=== PATIENT | female | born 1975 | race Caucasian/White ===

== ENCOUNTER 2017-06-01 20:42 | Emergency (ER) | payer OTHER ==
[~2017-06-01] VITALS: Ht 157.5 cm; Wt 63.5 kg
--- NOTE | 2017-06-01 21:09 | PHYS DOC ---
Past Medical History Past Medical History: No Pertinent History Past Surgical History: Other Additional Past Surgical Histo: Lumpectomy R shoulder, D&C Alcohol Use: None Drug Use: None Adult General Chief Complaint Chief Complaint: MULTIPLE COMPLAINTS HPI HPI Patient is a 41 year old female who presents with who complaints. She states her days ago she developed severe headache was in the frontal aspect and radiating to the back of her head. She states today it is light neck to 3 out of 10 before it was 20 out of 10. She states she's been having some nausea and vomited 3-4 times a day. She states her symptoms got worse after she cleaned the house today and he smelt mold in the house and other bad odors. She states she feels generalized weak and that's the reason she decided to come to the ER. She denies any chest pain, abdominal pain or shortness of breath. Review of Systems Review of Systems Constitutional: Denies fever or chills [] Eyes: Denies change in visual acuity, redness, or eye pain [] HENT: Denies nasal congestion or sore throat [] Respiratory: Denies cough or shortness of breath [] Cardiovascular: No additional information not addressed in HPI [] GI: Denies abdominal pain, , bloody stools or diarrhea, positive for nausea, vomiting : Denies dysuria or hematuria [] Musculoskeletal: Denies back pain or joint pain [] Integument: Denies rash or skin lesions [] Neurologic: Denies headache, focal weakness or sensory changes [] Endocrine: Denies polyuria or polydipsia [] Current Medications Current Medications Current Medications Medications (Trade) Dose Ordered Sig/[facility] Start Time Stop Time Status Last Admin Dose Admin Ondansetron HCl (Zofran) 4 mg 1X ONCE 06/01/17 21:15 06/01/17 21:16 DC 06/01/17 21:32 4 MG Sodium Chloride 1,000 ml @ 1,000 mls/hr Q1H 06/01/17 21:10 06/01/17 22:09 DC 06/01/17 21:32 1,000 MLS/HR Allergies Allergies Allergies Coded Allergies Type Severity Reaction Last Updated Verified Penicillins Allergy Mild 05/11/15 Yes Physical Exam Physical Exam Constitutional: Well developed, well nourished, no acute distress, non-toxic appearance. [] HENT: Normocephalic, atraumatic, bilateral external ears normal, oropharynx moist, no oral exudates, nose normal. [] Eyes: PERRLA, EOMI, conjunctiva normal, no discharge. [] Neck: Normal range of motion, no tenderness, supple, no stridor. [] Cardiovascular:Heart rate regular rhythm, no murmur [] Lungs & Thorax: Bilateral breath sounds clear to auscultation [] Abdomen: Bowel sounds normal, soft, no tenderness, no masses, no pulsatile masses. [] Skin: Warm, dry, no erythema, no rash. [] Back: No tenderness, no CVA tenderness. [] Extremities: No tenderness, no cyanosis, no clubbing, ROM intact, no edema. [] Neurologic: Alert and oriented X 3, normal motor function, normal sensory function, no focal deficits noted. [] Psychologic: Affect normal, judgement normal, mood normal. [] Current Patient Data Vital Signs Vital Signs Date Time Temp Pulse Resp B/P (MAP) Pulse Ox O2 Delivery O2 Flow Rate FiO2 06/01/17 22:32 80 20 128/80 (96) 98 Room Air 06/01/17 20:45 98.2 98.2 Lab Values Laboratory Tests Test 06/01/17 20:00 06/01/17 20:52 06/01/17 21:25 POC Urine HCG, Qualitative Hcg negative (Negative) Urine Collection Type Unknown Urine Color Red Urine Clarity Clear Urine pH 6.0 Urine Specific [place] >=1.030 Urine Protein 100 mg/dL (NEG-TRACE) Urine Glucose (UA) Negative mg/dL (NEG) Urine Ketones (Stick) Trace mg/dL (NEG) Urine Blood Large (NEG) Urine Nitrite Negative (NEG) Urine Bilirubin Small (NEG) Urine Urobilinogen Dipstick 1.0 mg/dL (0.2 mg/dL) Urine Leukocyte Esterase Small (NEG) Urine RBC >40 /HPF (0-2) Urine WBC Occ /HPF (0-4) Urine Squamous Epithelial Cells Mod /LPF Urine Bacteria Few /HPF (0-FEW) Urine Mucus Mod /LPF Urine Opiates Screen Pos (NEG) Urine Methadone Screen Pos (NEG) Urine Barbiturates Neg (NEG) Urine Phencyclidine Screen Neg (NEG) Urine Amphetamine/Methamphetamine Pos (NEG) Urine Benzodiazepines Screen Pos (NEG) Urine Cocaine Screen Neg (NEG) Urine Cannabinoids Screen Neg (NEG) Urine Ethyl Alcohol Neg (NEG) White Blood Count 5.1 x10^3/uL (4.0-11.0) Red Blood Count 4.75 x10^6/uL (3.50-5.40) Hemoglobin 14.2 g/dL (12.0-15.5) Hematocrit 40.7 % (36.0-47.0) Mean Corpuscular Volume 86 fL (79-100) Mean Corpuscular Hemoglobin 30 pg (25-35) Mean Corpuscular Hemoglobin Concent 35 g/dL (31-37) Red Cell Distribution Width 12.6 % (11.5-14.5) Platelet Count 108 x10^3/uL (140-400) L Neutrophils (%) (Auto) 78 % (31-73) H Lymphocytes (%) (Auto) 14 % (24-48) L Monocytes (%) (Auto) 8 % (0-9) Eosinophils (%) (Auto) 0 % (0-3) Basophils (%) (Auto) 1 % (0-3) Neutrophils # (Auto) 4.0 x10^3uL (1.8-7.7) Lymphocytes # (Auto) 0.7 x10^3/uL (1.0-4.8) L Monocytes # (Auto) 0.4 x10^3/uL (0.0-1.1) Eosinophils # (Auto) 0.0 x10^3/uL (0.0-0.7) Basophils # (Auto) 0.0 x10^3/uL (0.0-0.2) Prothrombin Time 13.2 SEC (11.7-14.0) Prothrombin Time INR 1.1 (0.8-1.1) PTT 32 SEC (24-38) Sodium Level 136 mmol/L (136-145) Potassium Level 3.5 mmol/L (3.5-5.1) Chloride Level 99 mmol/L (98-107) Carbon Dioxide Level 28 mmol/L (21-32) Anion Gap 9 (6-14) Blood Urea Nitrogen 14 mg/dL (7-20) Creatinine 0.8 mg/dL (0.6-1.0) Estimated GFR (Cockcroft-Gault) 78.7 Glucose Level 101 mg/dL (70-99) H Calcium Level 8.4 mg/dL (8.5-10.1) L Total Bilirubin 0.3 mg/dL (0.2-1.0) Direct Bilirubin 0.1 mg/dL (0.0-0.2) Aspartate Amino Transferase (AST) 29 U/L (15-37) Alanine Aminotransferase (ALT) 23 U/L (14-59) Alkaline Phosphatase 82 U/L (46-116) Creatine Kinase 60 U/L (26-192) Creatine Kinase MB (Mass) 0.7 ng/mL (0.0-3.6) Creatine Kinase MB Relative Index % (0-4) Troponin I Quantitative < 0.017 ng/mL (0.000-0.055) Total Protein 7.3 g/dL (6.4-8.2) Albumin 3.6 g/dL (3.4-5.0) Lipase 119 U/L (73-393) Laboratory Tests 06/01/17 21:25 Laboratory Tests 06/01/17 21:25 EKG EKG EKG shows sinus rhythm with rate of [address] elevations or T-wave inversions, QTC 450 ms, normal axis, as interpreted by me. Radiology/Procedures Radiology/Procedures [facility] [address] [place], [place] [id number] IMAGING REPORT Signed PATIENT: NATALIE TRAORE ACCOUNT: [id number] : 1975 LOCATION: ER AGE: 41 SEX: F EXAM STATUS: REG ER ORD. PHYSICIAN: JENNIFER BANEGAS MD REASON: headache PROCEDURE: CT HEAD WO CONTRAST Indication: Headaches. Axial imaging through the brain was performed without contrast. One or more of the following individualized dose reduction techniques were utilized for this examination: 1. Automated exposure control 2. Adjustment of the mA and/or kV according to patient size 3. Use of iterative reconstruction technique No prior studies are available for comparison. The ventricles and sulci are within normal limits. No sulcal effacement, midline shift or hemorrhage is detected. The cisterns are patent. The visualized paranasal sinuses are clear. IMPRESSION: No acute intracranial process is detected. Electronically signed by: Chavo Ventura MD (06/01/2017 10:11 PM) DICTATED and SIGNED BY: CHAVO VENTURA MD DATE: 06/01/17 027 CC: JENNIFER BANEGAS MD; LIZ MONROE APRN ~ Impressions: Nausea, vomiting Course & Med Decision Making Course & Med Decision Making Pertinent Labs and Imaging studies reviewed. (See chart for details) Labs show multiple illicit agents in her urine. She received IV fluids, Zofran and feels better. She's being discharged home with ODT Zofran. She can also take [id number] Claritin for sinus pressure to see that doesn't help with her headache. She did state she was exposed to mold another smelly substances and this could be sinus pressure with causing this discomfort. Return precautions given for fevers chills and severe headache nausea vomiting or other concerns return back to ER. She is to follow-up with primary care physician within next week. Dragon Disclaimer Dragon Disclaimer This electronic medical record was generated, in whole or in part, using a voice recognition dictation system. Departure Departure Impression: Primary Impression: Nausea Disposition: 01 HOME, SELF-CARE Condition: STABLE Referrals: LIZ MONROE APRN (PCP) Patient Instructions: Nausea, Adult Additional Instructions: The CAT scan of your head in addition to your x-ray of your chest did not show acute abnormality's. He felt better with IV fluids and Zofran. Your being discharged with oral dissolvable tablets of Zofran. You can also use Claritin they can purchase [id number] to see if this will help your nasal congestion and headache. Return back to ER if you develop severe headache, uncontrolled nausea vomiting, fevers chills or other concerns. You should follow up with primary care physician within the next week. Scripts Ondansetron (ZOFRAN ODT) 4 Mg Tab.rapdis 1 TAB SL Q8HRS, #10 TAB Prov: JENNIFER BANEGAS MD 06/01/17 JENNIFER BANEGAS MD Jun 01, 2017 21:09
[2017-06-01] MEDS ORDERED: IV NORMAL SALINE 1000ML BAG 1,000 ML IV SCH (21:10)
[2017-06-01] MEDS ORDERED: ONDANSETRON PF 4 MG/2 ML VIAL. IV ONE (21:15)
[2017-06-01 21:29] LABS: BILIRUBIN,URINE SMALL (NEG); GLUCOSE,URINE NEGATIVE (NEG); NITRITE,URINE NEGATIVE (NEG); PROTEIN,URINE 100 mg/dL (NEG-TRACE)
[2017-06-01 21:32] LABS: BASO % 1 % (0-3); EOS % 0 % (0-3); HEMATOCRIT 40.7 % (36.0-47.0); HEMOGLOBIN 14.2 g/dL (12.0-15.5); LYMPH # 0.7 x10^3/uL (1.0-4.8); LYMPH % 14 % (24-48); MEAN CORPUSCULAR HEMOGLOBIN 30 pg (25-35); MEAN CORPUSCULAR HGB CONC 35 g/dL (31-37); MEAN CORPUSCULAR VOLUME 86 fL (79-100); MONO % 8 % (0-9); NEUT % 78 % (31-73); PLATELET COUNT 108 x10^3/uL (140-400); RED BLOOD COUNT 4.75 x10^6/uL (3.50-5.40); RED CELL DISTRIBUTION WIDTH 12.6 % (11.5-14.5); WHITE BLOOD COUNT 5.1 x10^3/uL (4.0-11.0)
[2017-06-01 21:36] LABS: BARBITURATES NEG (NEG); BENZODIAZEPINES POS (NEG); CANNABINOIDS NEG (NEG); COCAINE NEG (NEG); METHADONE POS (NEG); OPIATES POS (NEG); PHENCYCLIDINE NEG (NEG)
[2017-06-01 21:37] LABS: BACTERIA,URINE FEW /HPF (0-FEW); RBC,URINE >40 /HPF (0-2); SQUAMOUS EPITHELIAL CELL,UR MOD /LPF; WBC,URINE OCC /HPF (0-4)
[2017-06-01 21:47] LABS: INR 1.1 (0.8-1.1); PROTHROMBIN TIME PATIENT 13.2 SEC (11.7-14.0)
[2017-06-01 21:48] LABS: CALCIUM 8.4 mg/dL (8.5-10.1); CREATININE 0.8 mg/dL (0.6-1.0); GFR 78.7; POTASSIUM 3.5 mmol/L (3.5-5.1)
[2017-06-01 21:53] LABS: ALBUMIN 3.6 g/dL (3.4-5.0); DIRECT BILIRUBIN 0.1 mg/dL (0.0-0.2); TOTAL BILIRUBIN 0.3 mg/dL (0.2-1.0); TOTAL PROTEIN 7.3 g/dL (6.4-8.2)
[2017-06-01 22:03] LABS: CKMB MASS 0.7 ng/mL (0.0-3.6); CREATINE KINASE 60 U/L (26-192)
--- NOTE | 2017-06-01 22:14 | RAD ---
Indication: Headaches. Axial imaging through the brain was performed without contrast. One or more of the following individualized dose reduction techniques were utilized for this examination: 1. Automated exposure control 2. Adjustment of the mA and/or kV according to patient size 3. Use of iterative reconstruction technique No prior studies are available for comparison. The ventricles and sulci are within normal limits. No sulcal effacement, midline shift or hemorrhage is detected. The cisterns are patent. The visualized paranasal sinuses are clear. IMPRESSION: No acute intracranial process is detected. Electronically signed by: Chavo Ventura MD (06/01/2017 10:11 PM)
[2017-06-01 22:32] VITALS: BP 128/80
[2017-06-01] MEDS ORDERED: ONDA4TAB10 SL (22:50)
--- NOTE | 2017-06-02 08:55 | RAD ---
Indication lightheaded. Chest discomfort. A single view of the chest was obtained. No prior imaging of the chest is available. The heart size and pulmonary vessels and mediastinum appear normal. The lungs are clear. No acute or significant finding is seen. IMPRESSION: No acute or significant finding apparent in the chest
--- NOTE | 2017-06-02 10:18 | EKG ---
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
== END 2017-06-01 22:58 | disposition home or self-care (01) ==
LOC: ER 20:42
DX: R11.2 Nausea with vomiting, unspecified (principal); R51 Headache; R53.1 Weakness; Z88.0 Allergy status to penicillin
CPT/HCPCS: 36415; 70450; 71010; 80048; 80076; 80305; 80320; 81001; 81025; 82553; 83690; 84484; 85027; 85610; 85730; 87086; 93005; 96361; 96374; 99285; J2405; J7030; G0481

== ENCOUNTER 2019-04-02 15:31 | Inpatient (IN) | payer OTHER, SELFPAY ==
[~2019-04-02] VITALS: Ht 157.5 cm; Wt 79.5 kg
[~2019-04-02 15:31] MED LIST: ONDA4TAB10 SL
[2019-04-02] MEDS ORDERED: CLINDAMYCIN 600MG PREMIX 50 ML IV ONE (16:30)
[2019-04-02] MEDS ORDERED: FLUORESCEIN OPHTH TEST STRIP. OD ONE (16:30)
[2019-04-02] MEDS ORDERED: TETRACAINE 0.5% OPHTH SOLUTION 4ML BOTTLE. OD ONE (16:30)
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
[2019-04-02 16:59] LABS: BASO % 1 % (0-3); EOS # 0.2 x10^3/uL (0.0-0.7); EOS % 4 % (0-3); HEMATOCRIT 38.1 % (36.0-47.0); HEMOGLOBIN 12.9 g/dL (12.0-15.5); LYMPH # 1.9 x10^3/uL (1.0-4.8); LYMPH % 30 % (24-48); MEAN CORPUSCULAR HEMOGLOBIN 29 pg (25-35); MEAN CORPUSCULAR HGB CONC 34 g/dL (31-37); MEAN CORPUSCULAR VOLUME 86 fL (79-100); MONO # 0.6 x10^3/uL (0.0-1.1); MONO % 9 % (0-9); NEUT # 3.8 x10^3uL (1.8-7.7); NEUT % 57 % (31-73); PLATELET COUNT 194 x10^3/uL (140-400); RED BLOOD COUNT 4.41 x10^6/uL (3.50-5.40); RED CELL DISTRIBUTION WIDTH 12.7 % (11.5-14.5); WHITE BLOOD COUNT 6.6 x10^3/uL (4.0-11.0)
[2019-04-02 17:02] LABS: CALCIUM 9.5 mg/dL (8.5-10.1); CREATININE 0.8 mg/dL (0.6-1.0); GFR 77.9; POTASSIUM 3.3 mmol/L (3.5-5.1)
[2019-04-02 17:08] LABS: ALBUMIN 4.2 g/dL (3.4-5.0); ALBUMIN/GLOBULIN RATIO 1.3 (1.0-1.7); TOTAL BILIRUBIN 0.3 mg/dL (0.2-1.0); TOTAL PROTEIN 7.5 g/dL (6.4-8.2)
[2019-04-02] MEDS ORDERED: methylPREDNISolone SOD SUCC PF 125 MG/2 ML VIAL. IV ONE (17:45)
[2019-04-02] MEDS ORDERED: ONDANSETRON PF 4 MG/2 ML VIAL. IV PRN (18:00)
[2019-04-02] MEDS ORDERED: ACETAMINOPHEN 325 MG TABLET. PO PRN (18:00)
--- NOTE | 2019-04-02 18:25 | NUR ---
1825 Patient placed in room 428 from the ED. She was oriented to the room and call light. She was ambulatory and was given clean gown and admit kit.
[2019-04-02 19:43] VITALS: BP 134/89
--- NOTE | 2019-04-02 20:30 | NUR ---
MD went to go see patient in room, patient was not in room or on unit. RN called security to advise them of the missing patient. Security found patient in parking lot and was escorted back to unit. RN advised patient that they are not to leave the unit in the future.
[2019-04-02] MEDS ORDERED: fentaNYL PF VIAL 100 MCG/2 ML VIAL IV PRN (21:00)
[2019-04-02] MEDS ORDERED: NICOTINE POLACRILEX 2MG GUM PACKAGE of 12. BC PRN (21:30)
[2019-04-02] MEDS ORDERED: CIPROFLOXACIN 0.3% OPHTH SOLUTION 5ML BOTTLE. OD ONE (22:30)
--- NOTE | 2019-04-02 22:35 | PDOC1 ---
History and Physical Date of Admission Date of Admission DATE: 04/02/19 TIME: 22:28 Identification/Chief Complaint Chief Complaint eye pain and swelling Source Source: Chart review, Patient History of Present Illness History of Present Illness Sunshine is a 43-year-old female admit with marked right eye swelling. She was working on a roof and had an abrasion yesterday and cleaned it out and kept working, she has about 10 photos on her phone of the progression how it started to hillary and then swell. When appeared to the ER, her right orbital area was fully swollen and indurated streaks up her right side of forehead. the pictures I see now are much worse than I had imagined when described to me by phone She reports that her vision and the raised streaks area already much imrpoved after getting the IV clinda a few hoursw ago. she had pain 9 out of 10, but much improved as the swellign is going down. she is not working right now but plans to travel with the [employer] this summer her father at this hospital (in room 428) and she had a panic attack before coming and almost refused to come to the hospital,but is better now Past Medical History Cardiovascular: No pertinent hx Pulmonary: No pertinent hx Heme/Onc: No pertinent hx Hepatobiliary: No pertinent hx Psych: No pertinent hx Rheumatologic: No pertinent hx Social History Smoke: <1 pack per day ALCOHOL: rare Drugs: None Current Problem List Problem List Problems Medical Problems: (1) Cellulitis Status: Acute Current Medications Current Medications Current Medications Fluorescein Sodium (Ful-Sophie) 1 strip 1X ONCE OD Last administered on 04/02/19at 16:46; Start 04/02/19 at 16:30; Stop 04/02/19 at 16:31; Status DC Tetracaine HCl (Tetracaine) 1 drop 1X ONCE OD Last administered on 04/02/19at 16:46; Start 04/02/19 at 16:30; Stop 04/02/19 at 16:31; Status DC Clindamycin Phosphate 50 ml @ 100 mls/hr 1X ONCE IV Last administered on 04/02/19at 16:47; Start 04/02/19 at 16:30; Stop 04/02/19 at 16:59; Status DC Methylprednisolone Sodium Succinate (SOLU-Medrol 125MG VIAL) 125 mg 1X ONCE IV Last administered on 04/02/19at 17:58; Start 04/02/19 at 17:45; Stop 04/02/19 at 17:46; Status DC Ondansetron HCl (Zofran) 4 mg PRN Q8HRS PRN IV NAUSEA/VOMITING; Start 04/02/19 at 18:00; Stop 04/03/19 at 17:59 Acetaminophen (Tylenol) 650 mg PRN Q4HRS PRN PO FEVER; Start 04/02/19 at 18:00; Stop 04/03/19 at 17:59 Fentanyl Citrate (Fentanyl 2ml Vial) 50 mcg PRN Q2HR PRN IV PAIN; Start 04/02/19 at 21:00 Oxycodone/ Acetaminophen (Percocet 5/325) 1 tab PRN Q4HRS PRN PO PAIN; Start 04/02/19 at 21:00 Nicotine (Nicoderm Cq 21mg) 1 patch PRN DAILY PRN TD SMOKING CESSATION; Start 04/02/19 at 21:30 Nicotine Polacrilex (Nicorette Gum) 1 each PRN Q1HR PRN BC SMOKING CESSATION; Start 04/02/19 at 21:30 Active Scripts Active Zofran Odt (Ondansetron) 4 Mg Tab.rapdis 1 Tab SL Q8HRS Allergies Allergies: Coded Allergies: Penicillins (Verified Allergy, Mild, 05/11/15) ROS General: No: Chills, Night Sweats, Fatigue, Malaise, Appetite, Other PSYCHOLOGICAL ROS: No: Anxiety, Behavioral Disorder, Concentration difficultie, Decreased libido, Depression, Disorientation, Hallucinations, Hostility, Irritablity, Memory difficulties, Mood Swings, Obsessive thoughts, Physical abuse, Sexual abuse, Sleep disturbances, Suicidal ideation, Other Eyes: No Blurry vision, No Decreased vision, No Double vision, No Dry eyes, No Excessive tearing, No Eye Pain, No Itchy Eyes, No Loss of vision, No Photophobia, No Scotomata, No Uses contacts, No Uses glasses, No Other HEENT: YES: Heacaches; No: Visual Changes, Hearing change, Nasal congestion, Nasal discharge, Oral lesions, Sinus pain, Sore Throat, Epistaxis, Sneezing, Snoring, Tinnitus, Vertigo, Vocal changes, Other Respiratory: No: Cough, Hemoptysis, Orthopnea, Pleuritic Pain, Shortness of breath, SOB with excertion, Sputum Changes, Stridor, Tachypnea, Wheezing, Other Cardiovascular: No Chest Pain, No Palpitations, No Orthopnea, No Paroxysmal Noc. Dyspnea, No Edema, No Lt Headedness, No Other Gastrointestinal: No Nausea, No Vomiting, No Abdominal Pain, No Diarrhea, No Constipation, No Melena, No Hematochezia, No Other Genitourinary: No Dysuria, No Frequency, No Incontinence, No Hematuria, No Retention, No Discharge, No Urgency, No Pain, No Flank Pain, No Other, No , No , No , No , No , No , No Musculoskeletal: No Gait Disturbance, No Joint Pain, No Joint Stiffness, No Joint Swelling, No Muscle Pain, No Muscular Weakness, No Pain In:, No Swelling In:, No Other Neurological: Yes Headaches; No Behavorial Changes, No Bowel/Bladder ControlChng, No Confusion, No Dizziness, No Gait Disturbance, No Impaired Coord/balance, No Memory Loss, No Numbness/Tingling, No Seizures, No Speech Problems, No Tremors, No Visual Changes, No Weakness, No Other Skin: No Dry Skin, No Eczema, No Hair Changes, No Lumps, No Mole Changes, No Mottling, No Nail Changes, No Pruritus, No Rash, No Skin Lesion Changes, No Other, No Acne Physical Exam General: Alert, Oriented X3, Cooperative, mild distress HEENT: EOMI, Other (right eye swollen, but able to open without fingers, vision good, sclera is injected, ) Lungs: Clear to auscultation, Other Heart: S1S2, RRR Abdomen: Normal bowel sounds, Soft Rectal Exam: not examined Extremities: No clubbing Skin: No rashes, No breakdown Neuro: Normal speech, Normal tone, Sensation intact Psych/Mental Status: Mental status NL, Mood NL Vitals Vitals Vital Signs Date Time Temp Pulse Resp B/P (MAP) Pulse Ox O2 Delivery O2 Flow Rate FiO2 04/02/19 19:43 97.8 84 20 134/89 (104) 100 Room Air 97.8 Labs Labs Laboratory Tests Test 04/02/19 16:35 White Blood Count 6.6 x10^3/uL (4.0-11.0) Red Blood Count 4.41 x10^6/uL (3.50-5.40) Hemoglobin 12.9 g/dL (12.0-15.5) Hematocrit 38.1 % (36.0-47.0) Mean Corpuscular Volume 86 fL (79-100) Mean Corpuscular Hemoglobin 29 pg (25-35) Mean Corpuscular Hemoglobin Concent 34 g/dL (31-37) Red Cell Distribution Width 12.7 % (11.5-14.5) Platelet Count 194 x10^3/uL (140-400) Neutrophils (%) (Auto) 57 % (31-73) Lymphocytes (%) (Auto) 30 % (24-48) Monocytes (%) (Auto) 9 % (0-9) Eosinophils (%) (Auto) 4 % (0-3) Basophils (%) (Auto) 1 % (0-3) Neutrophils # (Auto) 3.8 x10^3uL (1.8-7.7) Lymphocytes # (Auto) 1.9 x10^3/uL (1.0-4.8) Monocytes # (Auto) 0.6 x10^3/uL (0.0-1.1) Eosinophils # (Auto) 0.2 x10^3/uL (0.0-0.7) Basophils # (Auto) 0.0 x10^3/uL (0.0-0.2) Sodium Level 139 mmol/L (136-145) Potassium Level 3.3 mmol/L (3.5-5.1) Chloride Level 102 mmol/L (98-107) Carbon Dioxide Level 26 mmol/L (21-32) Anion Gap 11 (6-14) Blood Urea Nitrogen 12 mg/dL (7-20) Creatinine 0.8 mg/dL (0.6-1.0) Estimated GFR (Cockcroft-Gault) 77.9 BUN/Creatinine Ratio 15 (6-20) Glucose Level 107 mg/dL (70-99) Calcium Level 9.5 mg/dL (8.5-10.1) Total Bilirubin 0.3 mg/dL (0.2-1.0) Aspartate Amino Transf (AST/SGOT) 22 U/L (15-37) Alanine Aminotransferase (ALT/SGPT) 24 U/L (14-59) Alkaline Phosphatase 83 U/L (46-116) Total Protein 7.5 g/dL (6.4-8.2) Albumin 4.2 g/dL (3.4-5.0) Albumin/Globulin Ratio 1.3 (1.0-1.7) Laboratory Tests Test 04/02/19 16:35 White Blood Count 6.6 x10^3/uL (4.0-11.0) Red Blood Count 4.41 x10^6/uL (3.50-5.40) Hemoglobin 12.9 g/dL (12.0-15.5) Hematocrit 38.1 % (36.0-47.0) Mean Corpuscular Volume 86 fL (79-100) Mean Corpuscular Hemoglobin 29 pg (25-35) Mean Corpuscular Hemoglobin Concent 34 g/dL (31-37) Red Cell Distribution Width 12.7 % (11.5-14.5) Platelet Count 194 x10^3/uL (140-400) Neutrophils (%) (Auto) 57 % (31-73) Lymphocytes (%) (Auto) 30 % (24-48) Monocytes (%) (Auto) 9 % (0-9) Eosinophils (%) (Auto) 4 % (0-3) Basophils (%) (Auto) 1 % (0-3) Neutrophils # (Auto) 3.8 x10^3uL (1.8-7.7) Lymphocytes # (Auto) 1.9 x10^3/uL (1.0-4.8) Monocytes # (Auto) 0.6 x10^3/uL (0.0-1.1) Eosinophils # (Auto) 0.2 x10^3/uL (0.0-0.7) Basophils # (Auto) 0.0 x10^3/uL (0.0-0.2) Sodium Level 139 mmol/L (136-145) Potassium Level 3.3 mmol/L (3.5-5.1) Chloride Level 102 mmol/L (98-107) Carbon Dioxide Level 26 mmol/L (21-32) Anion Gap 11 (6-14) Blood Urea Nitrogen 12 mg/dL (7-20) Creatinine 0.8 mg/dL (0.6-1.0) Estimated GFR (Cockcroft-Gault) 77.9 BUN/Creatinine Ratio 15 (6-20) Glucose Level 107 mg/dL (70-99) Calcium Level 9.5 mg/dL (8.5-10.1) Total Bilirubin 0.3 mg/dL (0.2-1.0) Aspartate Amino Transf (AST/SGOT) 22 U/L (15-37) Alanine Aminotransferase (ALT/SGPT) 24 U/L (14-59) Alkaline Phosphatase 83 U/L (46-116) Total Protein 7.5 g/dL (6.4-8.2) Albumin 4.2 g/dL (3.4-5.0) Albumin/Globulin Ratio 1.3 (1.0-1.7) VTE Prophylaxis Ordered VTE Prophylaxis Devices: No VTE Pharmacological Prophylaxi: Yes Assessment/Plan Assessment/Plan periorbital cellulitis, she reports much improved after clinda given in ER tobaccoism, obese, BMI 31 cont current abx, add estela OU, may be able to DC on PO soon AURE GARDNER MD April 02, 2019 22:35
[2019-04-02] MEDS: oxyCODONE/APAP 5/325 1 TAB TABLET PO PRN (22:37)
[2019-04-02] MEDS ORDERED: FAMOTIDINE 20 MG TABLET. PO ONE (22:45)
[2019-04-02] MEDS ORDERED: CALCIUM CARBONATE 500 MG TAB.CHEW PO PRN (22:45)
[2019-04-02] MEDS ORDERED: MAG HYDROX/ALUMINUM HYD/SIMETH 30 ML ORAL.SUSP PO PRN (22:45)
[2019-04-02] MEDS: ENOXAPARIN 40 MG/0.4 ML SYRINGE. SQ SCH (22:51)
[2019-04-02 23:00] VITALS: BP 112/52
[2019-04-03 03:30] VITALS: BP 108/69
[2019-04-03] MEDS: CLINDAMYCIN 900MG PREMIX 50 ML IV SCH ×2 (05:26→14:00)
[2019-04-03] MEDS: oxyCODONE/APAP 5/325 1 TAB TABLET PO PRN ×2 (05:49→22:54)
[2019-04-03 07:00] VITALS: BP 106/60
[2019-04-03] MEDS: NICOTINE 21MG PATCH. TD PRN (08:12)
[2019-04-03] MEDS: FAMOTIDINE 20 MG TABLET. PO SCH ×2 (08:15→21:32)
[2019-04-03] MEDS ORDERED: SERT50TA PO (09:14)
[2019-04-03] MEDS ORDERED: CLON1TAB11 PO (09:14)
--- NOTE | 2019-04-03 10:10 | PDOC ---
PROGRESS NOTES History of Present Illness History of Present Illness Assessment/Plan Assessment/Plan periorbital cellulitis, she reports much improved after clinda given in ER tobaccoism, obese, BMI 31 cont current abx, add cipro OU, concern for zoster etiology ID CONSULT add iv zovirax pending ID consult Vitals Vitals Vital Signs Date Time Temp Pulse Resp B/P (MAP) Pulse Ox O2 Delivery O2 Flow Rate FiO2 04/03/19 07:00 98.8 86 18 106/60 (75) 95 Room Air 98.8 Physical Exam General: Alert, Oriented X3, Cooperative, mild distress Heart: Regular rate, Normal S1, Normal S2 Lungs: Clear Abdomen: Normal bowel sounds, Soft Extremities: No clubbing Skin: No rashes, No breakdown, Other (right frontal region rash with facial nerve distribution) Labs LABS Laboratory Tests Test 04/02/19 16:35 White Blood Count 6.6 x10^3/uL (4.0-11.0) Red Blood Count 4.41 x10^6/uL (3.50-5.40) Hemoglobin 12.9 g/dL (12.0-15.5) Hematocrit 38.1 % (36.0-47.0) Mean Corpuscular Volume 86 fL (79-100) Mean Corpuscular Hemoglobin 29 pg (25-35) Mean Corpuscular Hemoglobin Concent 34 g/dL (31-37) Red Cell Distribution Width 12.7 % (11.5-14.5) Platelet Count 194 x10^3/uL (140-400) Neutrophils (%) (Auto) 57 % (31-73) Lymphocytes (%) (Auto) 30 % (24-48) Monocytes (%) (Auto) 9 % (0-9) Eosinophils (%) (Auto) 4 % (0-3) Basophils (%) (Auto) 1 % (0-3) Neutrophils # (Auto) 3.8 x10^3uL (1.8-7.7) Lymphocytes # (Auto) 1.9 x10^3/uL (1.0-4.8) Monocytes # (Auto) 0.6 x10^3/uL (0.0-1.1) Eosinophils # (Auto) 0.2 x10^3/uL (0.0-0.7) Basophils # (Auto) 0.0 x10^3/uL (0.0-0.2) Sodium Level 139 mmol/L (136-145) Potassium Level 3.3 mmol/L (3.5-5.1) Chloride Level 102 mmol/L (98-107) Carbon Dioxide Level 26 mmol/L (21-32) Anion Gap 11 (6-14) Blood Urea Nitrogen 12 mg/dL (7-20) Creatinine 0.8 mg/dL (0.6-1.0) Estimated GFR (Cockcroft-Gault) 77.9 BUN/Creatinine Ratio 15 (6-20) Glucose Level 107 mg/dL (70-99) Calcium Level 9.5 mg/dL (8.5-10.1) Total Bilirubin 0.3 mg/dL (0.2-1.0) Aspartate Amino Transf (AST/SGOT) 22 U/L (15-37) Alanine Aminotransferase (ALT/SGPT) 24 U/L (14-59) Alkaline Phosphatase 83 U/L (46-116) Total Protein 7.5 g/dL (6.4-8.2) Albumin 4.2 g/dL (3.4-5.0) Albumin/Globulin Ratio 1.3 (1.0-1.7) Assessment and Plan Assessmemt and Plan Problems Medical Problems: (1) Cellulitis Status: Acute Comment Review of Relevant I have reviewed the following items kirstie (where applicable) has been applied. Labs Laboratory Tests Test 04/02/19 16:35 White Blood Count 6.6 x10^3/uL (4.0-11.0) Red Blood Count 4.41 x10^6/uL (3.50-5.40) Hemoglobin 12.9 g/dL (12.0-15.5) Hematocrit 38.1 % (36.0-47.0) Mean Corpuscular Volume 86 fL (79-100) Mean Corpuscular Hemoglobin 29 pg (25-35) Mean Corpuscular Hemoglobin Concent 34 g/dL (31-37) Red Cell Distribution Width 12.7 % (11.5-14.5) Platelet Count 194 x10^3/uL (140-400) Neutrophils (%) (Auto) 57 % (31-73) Lymphocytes (%) (Auto) 30 % (24-48) Monocytes (%) (Auto) 9 % (0-9) Eosinophils (%) (Auto) 4 % (0-3) Basophils (%) (Auto) 1 % (0-3) Neutrophils # (Auto) 3.8 x10^3uL (1.8-7.7) Lymphocytes # (Auto) 1.9 x10^3/uL (1.0-4.8) Monocytes # (Auto) 0.6 x10^3/uL (0.0-1.1) Eosinophils # (Auto) 0.2 x10^3/uL (0.0-0.7) Basophils # (Auto) 0.0 x10^3/uL (0.0-0.2) Sodium Level 139 mmol/L (136-145) Potassium Level 3.3 mmol/L (3.5-5.1) Chloride Level 102 mmol/L (98-107) Carbon Dioxide Level 26 mmol/L (21-32) Anion Gap 11 (6-14) Blood Urea Nitrogen 12 mg/dL (7-20) Creatinine 0.8 mg/dL (0.6-1.0) Estimated GFR (Cockcroft-Gault) 77.9 BUN/Creatinine Ratio 15 (6-20) Glucose Level 107 mg/dL (70-99) Calcium Level 9.5 mg/dL (8.5-10.1) Total Bilirubin 0.3 mg/dL (0.2-1.0) Aspartate Amino Transf (AST/SGOT) 22 U/L (15-37) Alanine Aminotransferase (ALT/SGPT) 24 U/L (14-59) Alkaline Phosphatase 83 U/L (46-116) Total Protein 7.5 g/dL (6.4-8.2) Albumin 4.2 g/dL (3.4-5.0) Albumin/Globulin Ratio 1.3 (1.0-1.7) Laboratory Tests Test 04/02/19 16:35 White Blood Count 6.6 x10^3/uL (4.0-11.0) Red Blood Count 4.41 x10^6/uL (3.50-5.40) Hemoglobin 12.9 g/dL (12.0-15.5) Hematocrit 38.1 % (36.0-47.0) Mean Corpuscular Volume 86 fL (79-100) Mean Corpuscular Hemoglobin 29 pg (25-35) Mean Corpuscular Hemoglobin Concent 34 g/dL (31-37) Red Cell Distribution Width 12.7 % (11.5-14.5) Platelet Count 194 x10^3/uL (140-400) Neutrophils (%) (Auto) 57 % (31-73) Lymphocytes (%) (Auto) 30 % (24-48) Monocytes (%) (Auto) 9 % (0-9) Eosinophils (%) (Auto) 4 % (0-3) Basophils (%) (Auto) 1 % (0-3) Neutrophils # (Auto) 3.8 x10^3uL (1.8-7.7) Lymphocytes # (Auto) 1.9 x10^3/uL (1.0-4.8) Monocytes # (Auto) 0.6 x10^3/uL (0.0-1.1) Eosinophils # (Auto) 0.2 x10^3/uL (0.0-0.7) Basophils # (Auto) 0.0 x10^3/uL (0.0-0.2) Sodium Level 139 mmol/L (136-145) Potassium Level 3.3 mmol/L (3.5-5.1) Chloride Level 102 mmol/L (98-107) Carbon Dioxide Level 26 mmol/L (21-32) Anion Gap 11 (6-14) Blood Urea Nitrogen 12 mg/dL (7-20) Creatinine 0.8 mg/dL (0.6-1.0) Estimated GFR (Cockcroft-Gault) 77.9 BUN/Creatinine Ratio 15 (6-20) Glucose Level 107 mg/dL (70-99) Calcium Level 9.5 mg/dL (8.5-10.1) Total Bilirubin 0.3 mg/dL (0.2-1.0) Aspartate Amino Transf (AST/SGOT) 22 U/L (15-37) Alanine Aminotransferase (ALT/SGPT) 24 U/L (14-59) Alkaline Phosphatase 83 U/L (46-116) Total Protein 7.5 g/dL (6.4-8.2) Albumin 4.2 g/dL (3.4-5.0) Albumin/Globulin Ratio 1.3 (1.0-1.7) Medications Current Medications Fluorescein Sodium (Ful-Sophie) 1 strip 1X ONCE OD Last administered on 04/02/19 16:46; Start 04/02/19 at 16:30; Stop 04/02/19 at 16:31; Status DC Tetracaine HCl (Tetracaine) 1 drop 1X ONCE OD Last administered on 04/02/19 16:46; Start 04/02/19 at 16:30; Stop 04/02/19 at 16:31; Status DC Clindamycin Phosphate 50 ml @ 100 mls/hr 1X ONCE IV Last administered on 04/02/19 16:47; Start 04/02/19 at 16:30; Stop 04/02/19 at 16:59; Status DC Methylprednisolone Sodium Succinate (SOLU-Medrol 125MG VIAL) 125 mg 1X ONCE IV Last administered on 04/02/19 17:58; Start 04/02/19 at 17:45; Stop 04/02/19 at 17:46; Status DC Ondansetron HCl (Zofran) 4 mg PRN Q8HRS PRN IV NAUSEA/VOMITING; Start 04/02/19 at 18:00; Stop 04/03/19 at 17:59 Acetaminophen (Tylenol) 650 mg PRN Q4HRS PRN PO FEVER; Start 04/02/19 at 18:00; Stop 04/03/19 at 17:59 Fentanyl Citrate (Fentanyl 2ml Vial) 50 mcg PRN Q2HR PRN IV PAIN; Start 04/02/19 at 21:00 Oxycodone/ Acetaminophen (Percocet 5/325) 1 tab PRN Q4HRS PRN PO PAIN Last administered on 04/03/19 05:49; Start 04/02/19 at 21:00 Nicotine (Nicoderm Cq 21mg) 1 patch PRN DAILY PRN TD SMOKING CESSATION Last administered on 04/03/19 08:12; Start 04/02/19 at 21:30 Nicotine Polacrilex (Nicorette Gum) 1 each PRN Q1HR PRN BC SMOKING CESSATION Last administered on 04/03/19 08:11; Start 04/02/19 at 21:30 Ciprofloxacin (Ciloxan Ophth) 1 drop QID OU ; Start 04/03/19 at 09:00 Ciprofloxacin (Ciloxan Ophth) 1 drop 1X ONCE OD Last administered on 04/02/19at 22:39; Start 04/02/19 at 22:30; Stop 04/02/19 at 22:31; Status DC Clindamycin Phosphate 50 ml @ 100 mls/hr Q8HRS IV Last administered on 04/03/19at 05:26; Start 04/03/19 at 06:00 Enoxaparin Sodium (Lovenox Per Pharmacy Prophylaxis Dosing) 1 each PRN DAILY PRN MC SEE COMMENTS; Start 04/02/19 at 22:30 Calcium Carbonate/ Glycine (Tums) 500 mg PRN AFTMEALHC PRN PO INDIGESTION; Start 04/02/19 at 22:45 Al Hydroxide/Mg Hydroxide (Mylanta Plus Xs) 30 ml PRN Q2HR PRN PO HEARTBURN / GAS; Start 04/02/19 at 22:45 Famotidine (Pepcid) 20 mg BID PO Last administered on 04/03/19at 08:15; Start 04/03/19 at 09:00 Famotidine (Pepcid) 20 mg 1X ONCE PO Last administered on 04/02/19at 22:51; Start 04/02/19 at 22:45; Stop 04/02/19 at 22:46; Status DC Enoxaparin Sodium (Lovenox 40mg Syringe) 40 mg Q24H SQ Last administered on 04/02/19at 22:51; Start 04/02/19 at 22:30 Clonazepam (KlonoPIN) 1 mg TID PO ; Start 04/03/19 at 09:15 Sertraline HCl (Zoloft) 50 mg DAILY PO ; Start 04/03/19 at 09:15 Active Scripts Active Zofran Odt (Ondansetron) 4 Mg Tab.rapdis 1 Tab SL Q8HRS Reported Clonazepam 1 Mg Tablet 1 Tab PO TID Zoloft (Sertraline Hcl) 50 Mg Tablet 1 Tab PO DAILY Vitals/I & O Vital Sign - Last 24 Hours 04/02/19 04/02/19 04/02/19 04/02/19 15:35 16:28 17:48 18:16 Temp 98.1 98.1 Pulse 92 84 82 Resp 16 B/P (MAP) 132/71 (91) 160/106 (124) 146/87 (106) 154/106 (122) Pulse Ox 99 99 100 O2 Delivery Room Air Room Air Room Air Room Air 504/02/19 04/02/19 04/02/19 19:30 19:43 22:37 23:00 Temp 97.8 97.9 97.8 97.9 Pulse 84 94 Resp 20 18 B/P (MAP) 134/89 (104) 112/52 (72) Pulse Ox 100 97 O2 Delivery Room Air Room Air Room Air Room Air 04/03/19 04/03/19 04/03/19 04/03/19 03:30 05:49 06:49 07:00 Temp 97.5 98.8 97.5 98.8 Pulse 83 86 Resp 18 18 B/P (MAP) 108/69 (82) 106/60 (75) Pulse Ox 97 95 O2 Delivery Room Air Room Air Room Air Room Air Intake and Output 04/02/19 04/02/19 04/03/19 15:00 23:00 07:00 Intake Total 530 ml 500 ml Balance 530 ml 500 ml DM TAYLOR MD April 03, 2019 10:10
[2019-04-03] MEDS: SERTRALINE 50 MG TABLET. PO SCH (10:33)
[2019-04-03] MEDS: clonazePAM 1 MG TABLET PO SCH ×3 (10:33→21:00)
[2019-04-03] MEDS: CIPROFLOXACIN 0.3% OPHTH SOLUTION 5ML BOTTLE. OU SCH ×4 (10:36→21:33)
[2019-04-03 11:00] VITALS: BP 131/75
[2019-04-03] MEDS ORDERED: POTASSIUM CHLORIDE 20 MEQ TABLET.ER. PO ONE (11:00)
[2019-04-03] MEDS: ACYCLOVIR SODIUM 500 MG in IV DEXTROSE 5% 100ML 100 ML IV SCH ×2 (13:01→21:33)
[2019-04-03 15:00] VITALS: BP 124/87
--- NOTE | 2019-04-03 16:12 | PDOC ---
Infectious Disease Note Vital Sign Vital Signs Vital Signs Date Time Temp Pulse Resp B/P (MAP) Pulse Ox O2 Delivery O2 Flow Rate FiO2 04/03/19 15:00 97.6 88 18 124/87 (99) 100 Room Air 97.6 Labs Lab Laboratory Tests Test 04/02/19 16:35 White Blood Count 6.6 x10^3/uL (4.0-11.0) Red Blood Count 4.41 x10^6/uL (3.50-5.40) Hemoglobin 12.9 g/dL (12.0-15.5) Hematocrit 38.1 % (36.0-47.0) Mean Corpuscular Volume 86 fL (79-100) Mean Corpuscular Hemoglobin 29 pg (25-35) Mean Corpuscular Hemoglobin Concent 34 g/dL (31-37) Red Cell Distribution Width 12.7 % (11.5-14.5) Platelet Count 194 x10^3/uL (140-400) Neutrophils (%) (Auto) 57 % (31-73) Lymphocytes (%) (Auto) 30 % (24-48) Monocytes (%) (Auto) 9 % (0-9) Eosinophils (%) (Auto) 4 % (0-3) Basophils (%) (Auto) 1 % (0-3) Neutrophils # (Auto) 3.8 x10^3uL (1.8-7.7) Lymphocytes # (Auto) 1.9 x10^3/uL (1.0-4.8) Monocytes # (Auto) 0.6 x10^3/uL (0.0-1.1) Eosinophils # (Auto) 0.2 x10^3/uL (0.0-0.7) Basophils # (Auto) 0.0 x10^3/uL (0.0-0.2) Sodium Level 139 mmol/L (136-145) Potassium Level 3.3 mmol/L (3.5-5.1) Chloride Level 102 mmol/L (98-107) Carbon Dioxide Level 26 mmol/L (21-32) Anion Gap 11 (6-14) Blood Urea Nitrogen 12 mg/dL (7-20) Creatinine 0.8 mg/dL (0.6-1.0) Estimated GFR (Cockcroft-Gault) 77.9 BUN/Creatinine Ratio 15 (6-20) Glucose Level 107 mg/dL (70-99) Calcium Level 9.5 mg/dL (8.5-10.1) Total Bilirubin 0.3 mg/dL (0.2-1.0) Aspartate Amino Transf (AST/SGOT) 22 U/L (15-37) Alanine Aminotransferase (ALT/SGPT) 24 U/L (14-59) Alkaline Phosphatase 83 U/L (46-116) Total Protein 7.5 g/dL (6.4-8.2) Albumin 4.2 g/dL (3.4-5.0) Albumin/Globulin Ratio 1.3 (1.0-1.7) Objective Assessment Jannette-orbital cellulitis 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 Lost to follow-up Homelessness Anxiety Plan Plan of Care Continue acyclovir and cipro ophth d/c clindamycin add meropenem and IV vanc add doxycycline, check RMSF Igg; ehrlichia PCR with significant tick exposure Consult ophthalmology Check Chlamydia/gonorrhea, RPR, hepatitis panel HIV screen Urine toxicology Will Need mammogram and f/u for breast abn as outpt BC pending Monitor labs/temp Monitor renal function closely Supportive care Thank you Patient seen, examined, labs and chart reviewed will obtain mri brain, I agree with above. Assessment and plan was coformulated with TELEMETRY REGISTERED NURSE. CELESTINE MORRELL APRN April 03, 2019 16:12 GILLES SENIOR MD April 03, 2019 17:37
[2019-04-03] MEDS ORDERED: VANCOMYCIN 1 GM in IV NORMAL SALINE 250ML 250 ML IV SCH (17:15)
[2019-04-03] MEDS: MEROPENEM 500 MG in IV NORMAL SALINE 50ML 50 ML IV SCH (17:47)
[2019-04-03] MEDS ORDERED: LINEZOLID 600 MG TABLET PO SCH (18:00)
[2019-04-03] MEDS ORDERED: VANCOMYCIN 2 GM in IV NORMAL SALINE 500ML BAG 500 ML IV ONE (18:00)
[2019-04-03 19:09] LABS: AMPHETAMINE/METHAMPHETAMINE POS (NEG); BARBITURATES NEG (NEG); BENZODIAZEPINES NEG (NEG); CANNABINOIDS NEG (NEG); COCAINE NEG (NEG); METHADONE NEG (NEG); OPIATES NEG (NEG); PHENCYCLIDINE NEG (NEG)
[2019-04-03 19:20] VITALS: BP 126/82
[2019-04-03] MEDS: VANCOMYCIN PER PHARMACY MC PRN (21:07)
--- NOTE | 2019-04-03 21:07 | NUR ---
Pharmacy Vancomycin Dosing Note S:Consulted to monitor and dose vancomycin started 04/03/19. O:NATALIE TRAORE is a 43 year old F with Cellulitis FACIAL . Height: 5 feet, 2 inches Weight: 79.715181 kg [place] Body Weight: 50.10 Adjusted Body Weight: 61.66 Dosing Weight: Actual Other Antibiotics: MEROPENEM LABS: Last BUN: 12 Last Creatinine: 0.8 Creatinine Clearance: 87 mL/min Last WBC: 6.6 Last Procalcitonin: Tmax (past 24 hours): 98.4 Microbiology: I/O: Drug Levels: Last level: on at Last dose given 04/03/19 at 1900 Vancomycin Dosing: Loading Dose: 2000 mg x1 Dosing Weight: Actual Target Trough: 10-20 A: Based on: WEIGHT, CRCL~84 P: 1. INITIATE Vancomycin 1250 mg IV q12h AFTER 2000 MG LOADING DOSE 2. Follow up Trough level on 04/05/19 at 0630 3. Pharmacy will continue to monitor, follow and adjust therapy as needed. [facility], 04/03/19 [id number]
[2019-04-03] MEDS: DOXYCYCLINE HYCLATE 100 MG TABLET PO SCH (21:32)
[2019-04-03] MEDS: LACTOBACILLUS RHAMNOSUS GG 1 CAPSULE. PO SCH (21:32)
[2019-04-03] MEDS: ENOXAPARIN 40 MG/0.4 ML SYRINGE. SQ SCH (22:38)
[2019-04-03 23:15] VITALS: BP 139/89
[2019-04-04] MEDS: MEROPENEM 500 MG in IV NORMAL SALINE 50ML 50 ML IV SCH ×5 (00:58→23:25)
[2019-04-04 03:27] VITALS: BP 146/85
[2019-04-04] MEDS: oxyCODONE/APAP 5/325 1 TAB TABLET PO PRN (05:09)
[2019-04-04] MEDS: ACYCLOVIR SODIUM 500 MG in IV DEXTROSE 5% 100ML 100 ML IV SCH ×3 (06:27→21:44)
[2019-04-04 06:54] LABS: BASO % 1 % (0-3); EOS # 0.1 x10^3/uL (0.0-0.7); EOS % 2 % (0-3); HEMATOCRIT 34.4 % (36.0-47.0); HEMOGLOBIN 11.8 g/dL (12.0-15.5); LYMPH # 2.3 x10^3/uL (1.0-4.8); LYMPH % 40 % (24-48); MEAN CORPUSCULAR HEMOGLOBIN 30 pg (25-35); MEAN CORPUSCULAR HGB CONC 34 g/dL (31-37); MEAN CORPUSCULAR VOLUME 87 fL (79-100); MONO # 0.4 x10^3/uL (0.0-1.1); MONO % 6 % (0-9); NEUT % 52 % (31-73); PLATELET COUNT 173 x10^3/uL (140-400); RED BLOOD COUNT 3.93 x10^6/uL (3.50-5.40); RED CELL DISTRIBUTION WIDTH 13.2 % (11.5-14.5); WHITE BLOOD COUNT 5.9 x10^3/uL (4.0-11.0)
[2019-04-04 07:00] VITALS: BP 153/97
[2019-04-04 07:20] LABS: CALCIUM 8.1 mg/dL (8.5-10.1); CREATININE 0.8 mg/dL (0.6-1.0); GFR 77.9; POTASSIUM 3.8 mmol/L (3.5-5.1)
[2019-04-04] MEDS: VANCOMYCIN 1.25 GM in IV NORMAL SALINE 250ML 250 ML IV SCH ×2 (07:35→19:58)
--- NOTE | 2019-04-04 08:02 | NUR ---
Dr. Fulton returned call, stated he not longer takes call here.
[2019-04-04] MEDS: LACTOBACILLUS RHAMNOSUS GG 1 CAPSULE. PO SCH ×2 (10:00→21:24)
[2019-04-04] MEDS: DOXYCYCLINE HYCLATE 100 MG TABLET PO SCH ×2 (10:00→21:24)
[2019-04-04] MEDS: CIPROFLOXACIN 0.3% OPHTH SOLUTION 5ML BOTTLE. OU SCH ×4 (10:01→21:25)
[2019-04-04] MEDS: SERTRALINE 50 MG TABLET. PO SCH (10:01)
[2019-04-04] MEDS: clonazePAM 1 MG TABLET PO SCH ×4 (10:01→23:04)
[2019-04-04] MEDS: POTASSIUM CHLORIDE 20 MEQ TABLET.ER. PO SCH (10:01)
[2019-04-04] MEDS: FAMOTIDINE 20 MG TABLET. PO SCH ×2 (10:01→21:24)
--- NOTE | 2019-04-04 10:10 | PDOC ---
PROGRESS NOTES History of Present Illness History of Present Illness Assessment/Plan Assessment/Plan periorbital cellulitis, she reports much improved after clinda given in ER discomfort over the rt eyelid, rash going up the forehead no f/c/n/v/ rt eye cannot open the eye 04/04 tobaccoism, obese, BMI 31 cont current abx, add cipro OU, concern for zoster etiology Herpes Zoster ophthalmicus suspected ID CONSULT rec transfer to [facility] FOR OPTH CON[facility]ULT iv zovirax Vitals Vitals Vital Signs Date Time Temp Pulse Resp B/P (MAP) Pulse Ox O2 Delivery O2 Flow Rate FiO2 04/04/19 08:02 Room Air 04/04/19 07:00 98.2 79 18 153/97 (115) 97 98.2 Physical Exam General: Alert, Oriented X3, Cooperative, mild distress, moderate distress, Other (CANNOT OPEN RIGHT EYELID) Heart: Regular rate, Normal S1, Normal S2 Lungs: Clear Abdomen: Normal bowel sounds, Soft Extremities: No clubbing Skin: No rashes, No breakdown, Other (right frontal region rash with facial ne rve distribution) Labs LABS Laboratory Tests Test 04/03/19 18:40 04/04/19 05:28 Urine Opiates Screen Neg (NEG) Urine Methadone Screen Neg (NEG) Urine Barbiturates Neg (NEG) Urine Phencyclidine Screen Neg (NEG) Urine Amphetamine/Methamphetamine Pos (NEG) Urine Benzodiazepines Screen Neg (NEG) Urine Cocaine Screen Neg (NEG) Urine Cannabinoids Screen Neg (NEG) Urine Ethyl Alcohol Neg (NEG) White Blood Count 5.9 x10^3/uL (4.0-11.0) Red Blood Count 3.93 x10^6/uL (3.50-5.40) Hemoglobin 11.8 g/dL (12.0-15.5) Hematocrit 34.4 % (36.0-47.0) Mean Corpuscular Volume 87 fL (79-100) Mean Corpuscular Hemoglobin 30 pg (25-35) Mean Corpuscular Hemoglobin Concent 34 g/dL (31-37) Red Cell Distribution Width 13.2 % (11.5-14.5) Platelet Count 173 x10^3/uL (140-400) Neutrophils (%) (Auto) 52 % (31-73) Lymphocytes (%) (Auto) 40 % (24-48) Monocytes (%) (Auto) 6 % (0-9) Eosinophils (%) (Auto) 2 % (0-3) Basophils (%) (Auto) 1 % (0-3) Neutrophils # (Auto) 3.0 x10^3uL (1.8-7.7) Lymphocytes # (Auto) 2.3 x10^3/uL (1.0-4.8) Monocytes # (Auto) 0.4 x10^3/uL (0.0-1.1) Eosinophils # (Auto) 0.1 x10^3/uL (0.0-0.7) Basophils # (Auto) 0.0 x10^3/uL (0.0-0.2) Sodium Level 139 mmol/L (136-145) Potassium Level 3.8 mmol/L (3.5-5.1) Chloride Level 105 mmol/L (98-107) Carbon Dioxide Level 25 mmol/L (21-32) Anion Gap 9 (6-14) Blood Urea Nitrogen 10 mg/dL (7-20) Creatinine 0.8 mg/dL (0.6-1.0) Estimated GFR (Cockcroft-Gault) 77.9 Glucose Level 106 mg/dL (70-99) Calcium Level 8.1 mg/dL (8.5-10.1) Assessment and Plan Assessmemt and Plan Problems Medical Problems: (1) Cellulitis Status: Acute Comment Review of Relevant I have reviewed the following items kirstie (where applicable) has been applied. Labs Laboratory Tests Test 04/02/19 16:35 04/03/19 18:40 04/04/19 05:28 White Blood Count 6.6 x10^3/uL (4.0-11.0) 5.9 x10^3/uL (4.0-11.0) Red Blood Count 4.41 x10^6/uL (3.50-5.40) 3.93 x10^6/uL (3.50-5.40) Hemoglobin 12.9 g/dL (12.0-15.5) 11.8 g/dL (12.0-15.5) Hematocrit 38.1 % (36.0-47.0) 34.4 % (36.0-47.0) Mean Corpuscular Volume 86 fL (79-100) 87 fL (79-100) Mean Corpuscular Hemoglobin 29 pg (25-35) 30 pg (25-35) Mean Corpuscular Hemoglobin Concent 34 g/dL (31-37) 34 g/dL (31-37) Red Cell Distribution Width 12.7 % (11.5-14.5) 13.2 % (11.5-14.5) Platelet Count 194 x10^3/uL (140-400) 173 x10^3/uL (140-400) Neutrophils (%) (Auto) 57 % (31-73) 52 % (31-73) Lymphocytes (%) (Auto) 30 % (24-48) 40 % (24-48) Monocytes (%) (Auto) 9 % (0-9) 6 % (0-9) Eosinophils (%) (Auto) 4 % (0-3) 2 % (0-3) Basophils (%) (Auto) 1 % (0-3) 1 % (0-3) Neutrophils # (Auto) 3.8 x10^3uL (1.8-7.7) 3.0 x10^3uL (1.8-7.7) Lymphocytes # (Auto) 1.9 x10^3/uL (1.0-4.8) 2.3 x10^3/uL (1.0-4.8) Monocytes # (Auto) 0.6 x10^3/uL (0.0-1.1) 0.4 x10^3/uL (0.0-1.1) Eosinophils # (Auto) 0.2 x10^3/uL (0.0-0.7) 0.1 x10^3/uL (0.0-0.7) Basophils # (Auto) 0.0 x10^3/uL (0.0-0.2) 0.0 x10^3/uL (0.0-0.2) Sodium Level 139 mmol/L (136-145) 139 mmol/L (136-145) Potassium Level 3.3 mmol/L (3.5-5.1) 3.8 mmol/L (3.5-5.1) Chloride Level 102 mmol/L (98-107) 105 mmol/L (98-107) Carbon Dioxide Level 26 mmol/L (21-32) 25 mmol/L (21-32) Anion Gap 11 (6-14) 9 (6-14) Blood Urea Nitrogen 12 mg/dL (7-20) 10 mg/dL (7-20) Creatinine 0.8 mg/dL (0.6-1.0) 0.8 mg/dL (0.6-1.0) Estimated GFR (Cockcroft-Gault) 77.9 77.9 BUN/Creatinine Ratio 15 (6-20) Glucose Level 107 mg/dL (70-99) 106 mg/dL (70-99) Calcium Level 9.5 mg/dL (8.5-10.1) 8.1 mg/dL (8.5-10.1) Total Bilirubin 0.3 mg/dL (0.2-1.0) Aspartate Amino Transf (AST/SGOT) 22 U/L (15-37) Alanine Aminotransferase (ALT/SGPT) 24 U/L (14-59) Alkaline Phosphatase 83 U/L (46-116) Total Protein 7.5 g/dL (6.4-8.2) Albumin 4.2 g/dL (3.4-5.0) Albumin/Globulin Ratio 1.3 (1.0-1.7) Urine Opiates Screen Neg (NEG) Urine Methadone Screen Neg (NEG) Urine Barbiturates Neg (NEG) Urine Phencyclidine Screen Neg (NEG) Urine Amphetamine/Methamphetamine Pos (NEG) Urine Benzodiazepines Screen Neg (NEG) Urine Cocaine Screen Neg (NEG) Urine Cannabinoids Screen Neg (NEG) Urine Ethyl Alcohol Neg (NEG) Laboratory Tests Test 04/03/19 18:40 04/04/19 05:28 Urine Opiates Screen Neg (NEG) Urine Methadone Screen Neg (NEG) Urine Barbiturates Neg (NEG) Urine Phencyclidine Screen Neg (NEG) Urine Amphetamine/Methamphetamine Pos (NEG) Urine Benzodiazepines Screen Neg (NEG) Urine Cocaine Screen Neg (NEG) Urine Cannabinoids Screen Neg (NEG) Urine Ethyl Alcohol Neg (NEG) White Blood Count 5.9 x10^3/uL (4.0-11.0) Red Blood Count 3.93 x10^6/uL (3.50-5.40) Hemoglobin 11.8 g/dL (12.0-15.5) Hematocrit 34.4 % (36.0-47.0) Mean Corpuscular Volume 87 fL (79-100) Mean Corpuscular Hemoglobin 30 pg (25-35) Mean Corpuscular Hemoglobin Concent 34 g/dL (31-37) Red Cell Distribution Width 13.2 % (11.5-14.5) Platelet Count 173 x10^3/uL (140-400) Neutrophils (%) (Auto) 52 % (31-73) Lymphocytes (%) (Auto) 40 % (24-48) Monocytes (%) (Auto) 6 % (0-9) Eosinophils (%) (Auto) 2 % (0-3) Basophils (%) (Auto) 1 % (0-3) Neutrophils # (Auto) 3.0 x10^3uL (1.8-7.7) Lymphocytes # (Auto) 2.3 x10^3/uL (1.0-4.8) Monocytes # (Auto) 0.4 x10^3/uL (0.0-1.1) Eosinophils # (Auto) 0.1 x10^3/uL (0.0-0.7) Basophils # (Auto) 0.0 x10^3/uL (0.0-0.2) Sodium Level 139 mmol/L (136-145) Potassium Level 3.8 mmol/L (3.5-5.1) Chloride Level 105 mmol/L (98-107) Carbon Dioxide Level 25 mmol/L (21-32) Anion Gap 9 (6-14) Blood Urea Nitrogen 10 mg/dL (7-20) Creatinine 0.8 mg/dL (0.6-1.0) Estimated GFR (Cockcroft-Gault) 77.9 Glucose Level 106 mg/dL (70-99) Calcium Level 8.1 mg/dL (8.5-10.1) Microbiology 04/02/19 Blood Culture - Preliminary, Resulted NO GROWTH AFTER 1 DAY Medications Current Medications Fluorescein Sodium (Ful-Sophie) 1 strip 1X ONCE OD Last administered on 04/02/19at 16:46; Start 04/02/19 at 16:30; Stop 04/02/19 at 16:31; Status DC Tetracaine HCl (Tetracaine) 1 drop 1X ONCE OD Last administered on 04/02/19at 16:46; Start 04/02/19 at 16:30; Stop 04/02/19 at 16:31; Status DC Clindamycin Phosphate 50 ml @ 100 mls/hr 1X ONCE IV Last administered on 04/02/19at 16:47; Start 04/02/19 at 16:30; Stop 04/02/19 at 16:59; Status DC Methylprednisolone Sodium Succinate (SOLU-Medrol 125MG VIAL) 125 mg 1X ONCE IV Last administered on 04/02/19at 17:58; Start 04/02/19 at 17:45; Stop 04/02/19 at 17:46; Status DC Ondansetron HCl (Zofran) 4 mg PRN Q8HRS PRN IV NAUSEA/VOMITING; Start 04/02/19 at 18:00; Stop 04/03/19 at 17:59; Status DC Acetaminophen (Tylenol) 650 mg PRN Q4HRS PRN PO FEVER; Start 04/02/19 at 18:00; Stop 04/03/19 at 17:59; Status DC Fentanyl Citrate (Fentanyl 2ml Vial) 50 mcg PRN Q2HR PRN IV PAIN; Start 04/02/19 at 21:00 Oxycodone/ Acetaminophen (Percocet 5/325) 1 tab PRN Q4HRS PRN PO PAIN Last administered on 04/04/19at 05:09; Start 04/02/19 at 21:00 Nicotine (Nicoderm Cq 21mg) 1 patch PRN DAILY PRN TD SMOKING CESSATION Last administered on 04/03/19at 08:12; Start 04/02/19 at 21:30 Nicotine Polacrilex (Nicorette Gum) 1 each PRN Q1HR PRN BC SMOKING CESSATION Last administered on 04/03/19at 08:11; Start 04/02/19 at 21:30 Ciprofloxacin (Ciloxan Ophth) 1 drop QID OU Last administered on 04/04/19at 10:01; Start 04/03/19 at 09:00 Ciprofloxacin (Ciloxan Ophth) 1 drop 1X ONCE OD Last administered on 04/02/19at 22:39; Start 04/02/19 at 22:30; Stop 04/02/19 at 22:31; Status DC Clindamycin Phosphate 50 ml @ 100 mls/hr Q8HRS IV Last administered on 04/03/19at 14:00; Start 04/03/19 at 06:00; Stop 04/03/19 at 17:20; Status DC Enoxaparin Sodium (Lovenox Per Pharmacy Prophylaxis Dosing) 1 each PRN DAILY PRN MC SEE COMMENTS; Start 04/02/19 at 22:30 Calcium Carbonate/ Glycine (Tums) 500 mg PRN AFTMEALHC PRN PO INDIGESTION; Start 04/02/19 at 22:45 Al Hydroxide/Mg Hydroxide (Mylanta Plus Xs) 30 ml PRN Q2HR PRN PO HEARTBURN / GAS; Start 04/02/19 at 22:45 Famotidine (Pepcid) 20 mg BID PO Last administered on 04/04/19 10:01; Start 04/03/19 at 09:00 Famotidine (Pepcid) 20 mg 1X ONCE PO Last administered on 04/02/19 22:51; Start 04/02/19 at 22:45; Stop 04/02/19 at 22:46; Status DC Enoxaparin Sodium (Lovenox 40mg Syringe) 40 mg Q24H SQ Last administered on 04/03/19 22:38; Start 04/02/19 at 22:30 Clonazepam (KlonoPIN) 1 mg TID PO Last administered on 04/04/19 10:01; Start 04/03/19 at 09:15 Sertraline HCl (Zoloft) 50 mg DAILY PO Last administered on 04/04/19 10:01; Start 04/03/19 at 09:15 Acyclovir Sodium 500 mg/Dextrose 110 ml @ 110 mls/hr Q8HRS IV Last administered on 04/04/19 06:27; Start 04/03/19 at 11:00 Potassium Chloride (Klor-Con) 40 meq 1X ONCE PO Last administered on 04/03/19 13:01; Start 04/03/19 at 11:00; Stop 04/03/19 at 11:01; Status DC Potassium Chloride (Klor-Con) 20 meq DAILYWBKFT PO Last administered on 04/04/19 10:01; Start 04/04/19 at 08:00 Lactobacillus Rhamnosus (Culturelle) 1 cap BID PO Last administered on 04/04/19 10:00; Start 04/03/19 at 21:00 Meropenem 500 mg/ Sodium Chloride 50 ml @ 100 mls/hr Q6HRS IV Last administered on 5/6/19at 04:57; Start 04/03/19 at 18:00 Linezolid (Zyvox) 600 mg BID PO ; Start 04/03/19 at 18:00; Stop 04/03/19 at 18:00; Status DC Vancomycin HCl 1 gm/Sodium Chloride 250 ml @ 250 mls/hr Q12H IV ; Start 04/03/19 at 17:15; Status UNV Vancomycin HCl 2 gm/Sodium Chloride 500 ml @ 250 mls/hr 1X ONCE IV Last administered on 04/03/19at 19:08; Start 04/03/19 at 18:00; Stop 04/03/19 at 19:59; Status DC Vancomycin HCl (Vanco Per Pharmacy) 1 each PRN DAILY PRN MC SEE COMMENTS Last administered on 04/03/19at 21:07; Start 04/03/19 at 17:30 Doxycycline Hyclate (Vibra-Tab) 100 mg BID PO Last administered on 04/04/19at 10:00; Start 04/03/19 at 21:00 Vancomycin HCl 1.25 gm/Sodium Chloride 250 ml @ 167 mls/hr Q12H IV Last administered on 04/04/19at 07:35; Start 04/04/19 at 07:00 Vancomycin HCl (Vancomycin Trough Level) 1 each 1X ONCE MC ; Start 04/05/19 at 06:30; Stop 04/05/19 at 06:31 Active Scripts Active Zofran Odt (Ondansetron) 4 Mg Tab.rapdis 1 Tab SL Q8HRS Reported Clonazepam 1 Mg Tablet 1 Tab PO TID Zoloft (Sertraline Hcl) 50 Mg Tablet 1 Tab PO DAILY Vitals/I & O Vital Sign - Last 24 Hours 04/03/19 04/03/19 04/03/19 04/03/19 11:00 15:00 19:20 19:30 Temp 97.5 97.6 98.4 97.5 97.6 98.4 Pulse 80 88 86 Resp 18 18 18 B/P (MAP) 131/75 (93) 124/87 (99) 126/82 (97) Pulse Ox 100 100 97 O2 Delivery Room Air Room Air Room Air Room Air 04/03/19 04/03/19 04/04/19 04/04/19 22:54 23:15 00:01 03:27 Temp 98.3 98.5 98.3 98.5 Pulse 92 89 Resp 18 16 B/P (MAP) 139/89 (106) 146/85 (105) Pulse Ox 98 98 96 O2 Delivery Room Air Room Air 04/04/19 04/04/19 04/04/19 04/04/19 05:09 06:09 07:00 08:02 Temp 98.2 98.2 Pulse 79 Resp 18 B/P (MAP) 153/97 (115) Pulse Ox 97 O2 Delivery Room Air Room Air Room Air Room Air Intake and Output 04/03/19 04/03/19 04/04/19 14:59 22:59 06:59 Intake Total 360 ml Output Total 352 ml Balance 8 ml DM TAYLOR MD April 04, 2019 10:10
--- NOTE | 2019-04-04 10:29 | NUR ---
Assumed care from CONSTANTIN Matos
[2019-04-04 11:00] VITALS: BP 127/84
--- NOTE | 2019-04-04 11:02 | NUR ---
SW following for discharge planning. Discussed with RN, pt is very drowsy today, on isolation for shingles. Pt tested positive for methamphetamine. SW has referral for pt being homeless and limited resources, pt is self pay - SW to meet with pt when more alert. SW will continue to follow.
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
--- NOTE | 2019-04-04 11:21 | NUR ---
Attempted to call eye consult, per Sheron patient needs to be discharged from hospital before can be seen by [facility], will notify ID
--- NOTE | 2019-04-04 11:23 | NUR ---
Notified Dr. Chase of unable to find in hospital consult notify IP of possible transfer to [facility] for further eye care
--- NOTE | 2019-04-04 11:25 | PDOC ---
Infectious Disease Note Subjective: Subjective Pt still has swelling of rt eye ,having secretions, unable to open eye discomfort over the rt eyelid, rash going up the forehead no f/c/n/v/ rt eye cannot open the eye Lt eye vision ok ROS: ROS D/W RN Vital Signs: Vital Signs Vital Signs Date Time Temp Pulse Resp B/P (MAP) Pulse Ox O2 Delivery O2 Flow Rate FiO2 04/04/19 08:02 Room Air 04/04/19 07:00 98.2 79 18 153/97 (115) 97 98.2 Physical Exam: PHYSICAL EXAM General: Alert, Oriented X3, Cooperative, mild distress Heent : Rt eye closed shut,unable to open swelling,erythema,tenderness of the rt periorbital area and eyelids, unable to openeyes, lt eye ok , rash over the rt frontal area, zoroastrian and eyelid Heart: Regular rate, Normal S1, Normal S2 Lungs: Clear Abdomen: Normal bowel sounds, Soft Extremities: No clubbing Skin: No rashes, No breakdown, Other (right frontal region rash with facial nerve distribution) Medications: Inpatient Meds: Current Medications Medications (Trade) Dose Ordered Sig/Nahum Start Time Stop Time Status Last Admin Dose Admin Acetaminophen (Tylenol) 650 mg PRN Q4HRS PRN 04/02/19 18:00 04/03/19 17:59 DC Acyclovir Sodium 500 mg/Dextrose 110 ml @ 110 mls/hr Q8HRS 04/03/19 11:00 04/04/19 06:27 110 MLS/HR Al Hydroxide/Mg Hydroxide (Mylanta Plus Xs) 30 ml PRN Q2HR PRN 04/02/19 22:45 Calcium Carbonate/ Glycine (Tums) 500 mg PRN AFTMEALHC PRN 04/02/19 22:45 Ciprofloxacin (Ciloxan Ophth) 1 drop 1X ONCE 04/02/19 22:30 04/02/19 22:31 DC 04/02/19 22:39 1 DROP Clindamycin Phosphate 50 ml @ 100 mls/hr Q8HRS 04/03/19 06:00 04/03/19 17:20 DC 04/03/19 14:00 100 MLS/HR Clonazepam (KlonoPIN) 1 mg TID 04/03/19 09:15 04/04/19 10:01 1 MG Doxycycline Hyclate (Vibra-Tab) 100 mg BID 04/03/19 21:00 04/04/19 10:00 100 MG Enoxaparin Sodium (Lovenox 40mg Syringe) 40 mg Q24H 04/02/19 22:30 04/03/19 22:38 40 MG Enoxaparin Sodium (Lovenox Per Pharmacy Prophylaxis Dosing) 1 each PRN DAILY PRN 04/02/19 22:30 Famotidine (Pepcid) 20 mg 1X ONCE 04/02/19 22:45 04/02/19 22:46 DC 04/02/19 22:51 20 MG Fentanyl Citrate (Fentanyl 2ml Vial) 50 mcg PRN Q2HR PRN 04/02/19 21:00 Fluorescein Sodium (Ful-Sophie) 1 strip 1X ONCE 04/02/19 16:30 04/02/19 16:31 DC 04/02/19 16:46 1 STRIP Lactobacillus Rhamnosus (Culturelle) 1 cap BID 04/03/19 21:00 04/04/19 10:00 1 CAP Linezolid (Zyvox) 600 mg BID 04/03/19 18:00 04/03/19 18:00 DC Meropenem 500 mg/ Sodium Chloride 50 ml @ 100 mls/hr Q6HRS 04/03/19 18:00 04/04/19 04:57 100 MLS/HR Methylprednisolone Sodium Succinate (SOLU-Medrol 125MG VIAL) 125 mg 1X ONCE 04/02/19 17:45 04/02/19 17:46 DC 04/02/19 17:58 125 MG Nicotine (Nicoderm Cq 21mg) 1 patch PRN DAILY PRN 04/02/19 21:30 04/03/19 08:12 1 PATCH Nicotine Polacrilex (Nicorette Gum) 1 each PRN Q1HR PRN 04/02/19 21:30 04/03/19 08:11 1 EACH Ondansetron HCl (Zofran) 4 mg PRN Q8HRS PRN 04/02/19 18:00 04/03/19 17:59 DC Oxycodone/ Acetaminophen (Percocet 5/325) 1 tab PRN Q4HRS PRN 04/02/19 21:00 04/04/19 05:09 1 TAB Potassium Chloride (Klor-Con) 20 meq DAILYWBKFT 04/04/19 08:00 04/04/19 10:01 20 MEQ Sertraline HCl (Zoloft) 50 mg DAILY 04/03/19 09:15 04/04/19 10:01 50 MG Tetracaine HCl (Tetracaine) 1 drop 1X ONCE 04/02/19 16:30 04/02/19 16:31 DC 04/02/19 16:46 1 DROP Vancomycin HCl (Vanco Per Pharmacy) 1 each PRN DAILY PRN 04/03/19 17:30 04/03/19 21:07 1 EACH Vancomycin HCl (Vancomycin Trough Level) 1 each 1X ONCE 04/05/19 06:30 04/05/19 06:31 Vancomycin HCl 1.25 gm/Sodium Chloride 250 ml @ 167 mls/hr Q12H 04/04/19 07:00 04/04/19 07:35 167 MLS/HR Vancomycin HCl 1 gm/Sodium Chloride 250 ml @ 250 mls/hr Q12H 04/03/19 17:15 UNV Vancomycin HCl 2 gm/Sodium Chloride 500 ml @ 250 mls/hr 1X ONCE 04/03/19 18:00 04/03/19 19:59 DC 04/03/19 19:08 250 MLS/HR Labs: Lab Laboratory Tests Test 04/03/19 18:40 04/04/19 05:28 Urine Opiates Screen Neg (NEG) Urine Methadone Screen Neg (NEG) Urine Barbiturates Neg (NEG) Urine Phencyclidine Screen Neg (NEG) Urine Amphetamine/Methamphetamine Pos (NEG) Urine Benzodiazepines Screen Neg (NEG) Urine Cocaine Screen Neg (NEG) Urine Cannabinoids Screen Neg (NEG) Urine Ethyl Alcohol Neg (NEG) White Blood Count 5.9 x10^3/uL (4.0-11.0) Red Blood Count 3.93 x10^6/uL (3.50-5.40) Hemoglobin 11.8 g/dL (12.0-15.5) Hematocrit 34.4 % (36.0-47.0) Mean Corpuscular Volume 87 fL (79-100) Mean Corpuscular Hemoglobin 30 pg (25-35) Mean Corpuscular Hemoglobin Concent 34 g/dL (31-37) Red Cell Distribution Width 13.2 % (11.5-14.5) Platelet Count 173 x10^3/uL (140-400) Neutrophils (%) (Auto) 52 % (31-73) Lymphocytes (%) (Auto) 40 % (24-48) Monocytes (%) (Auto) 6 % (0-9) Eosinophils (%) (Auto) 2 % (0-3) Basophils (%) (Auto) 1 % (0-3) Neutrophils # (Auto) 3.0 x10^3uL (1.8-7.7) Lymphocytes # (Auto) 2.3 x10^3/uL (1.0-4.8) Monocytes # (Auto) 0.4 x10^3/uL (0.0-1.1) Eosinophils # (Auto) 0.1 x10^3/uL (0.0-0.7) Basophils # (Auto) 0.0 x10^3/uL (0.0-0.2) Sodium Level 139 mmol/L (136-145) Potassium Level 3.8 mmol/L (3.5-5.1) Chloride Level 105 mmol/L (98-107) Carbon Dioxide Level 25 mmol/L (21-32) Anion Gap 9 (6-14) Blood Urea Nitrogen 10 mg/dL (7-20) Creatinine 0.8 mg/dL (0.6-1.0) Estimated GFR (Cockcroft-Gault) 77.9 Glucose Level 106 mg/dL (70-99) Calcium Level 8.1 mg/dL (8.5-10.1) Micro BC neg Radiology MRI brain pending Objective: Assessment: Severe RT Jannette-orbital cellulitis etiology unclear, could be viral,bacterial Rt Orbital infection with vitritis etc cannot be ruled out....RT eye closed shut,blurred vision.... 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 h/o IVDU and promiscuity h/o abnormal mammogram. Lost to follow-up Homelessness Anxiety Plan: Plan of Care Continue acyclovir cont cipro ophth cont meropenem and IV vanc Monitor renal function closely add doxycycline, check RMSF Igg; Ehrlichia igm igg d/w with pathology chief with significant tick exposure ehrlichiosis cannot be ruled out ehrlichia PCR not available per administration at this facility Consult ophthalmology donation specialist ,D/W RN Local eye care MRI brain pending Check Chlamydia/gonorrhea, RPR, hepatitis panel HIV screen Urine toxicology Will Need mammogram and f/u for breast abn as outpt BC pending Monitor labs/temp ,labs ordered for am Supportive care D/W Administration and pathology D/W Nursing Addendum Opthalmology donation specialist per RN will not see this pt here Pt will need to be transferred to another center for opthalmology ,imaging and futher evaluation and treatment Pt is at risk of loosing her Rt eye without further evaluation and diagnosis GILLES SENIOR MD April 04, 2019 11:25
[2019-04-04] MEDS: VANCOMYCIN PER PHARMACY MC PRN (12:21)
--- NOTE | 2019-04-04 13:32 | NUR ---
SW following. RN advised Dr. Arenas wanting an inpatient transfer to for pt's eye, Marcelino at is requesting the notes to be faxed. MARCO ANTONIO phoned and faxed Marcelino at (ph: [phone], fax: [phone]). SW awaiting confirmation as to whether pt will be accepted at for inpatient transfer.
--- NOTE | 2019-04-04 14:59 | NUR ---
SW following. Discussed with Marcelino at , pt has been denied inpatient transfer for today due to no bed availability. Marcelino reported she had told Dr. Arenas, and advised [facility] attempt the transfer again tomorrow (04/05/19). MARCO ANTONIO will continue to follow. RN notified.
[2019-04-04 15:00] VITALS: BP 147/89
[2019-04-04 19:00] VITALS: BP 141/90
[2019-04-04] MEDS: ENOXAPARIN 40 MG/0.4 ML SYRINGE. SQ SCH (22:54)
[2019-04-04 23:00] VITALS: BP 149/94
[2019-04-05 03:00] VITALS: BP 144/86
[2019-04-05] MEDS: MEROPENEM 500 MG in IV NORMAL SALINE 50ML 50 ML IV SCH ×4 (05:36→23:43)
[2019-04-05] MEDS: ACYCLOVIR SODIUM 500 MG in IV DEXTROSE 5% 100ML 100 ML IV SCH ×3 (06:17→22:01)
[2019-04-05 07:00] VITALS: BP 142/93
[2019-04-05] MEDS: VANCOMYCIN 1.25 GM in IV NORMAL SALINE 250ML 250 ML IV SCH (07:00)
[2019-04-05 07:56] LABS: BASO % 1 % (0-3); EOS # 0.1 x10^3/uL (0.0-0.7); EOS % 2 % (0-3); HEMATOCRIT 39.3 % (36.0-47.0); HEMOGLOBIN 13.2 g/dL (12.0-15.5); LYMPH # 2.2 x10^3/uL (1.0-4.8); LYMPH % 35 % (24-48); MEAN CORPUSCULAR HEMOGLOBIN 29 pg (25-35); MEAN CORPUSCULAR HGB CONC 34 g/dL (31-37); MEAN CORPUSCULAR VOLUME 88 fL (79-100); MONO # 0.4 x10^3/uL (0.0-1.1); MONO % 6 % (0-9); NEUT # 3.6 x10^3uL (1.8-7.7); NEUT % 57 % (31-73); PLATELET COUNT 210 x10^3/uL (140-400); WHITE BLOOD COUNT 6.4 x10^3/uL (4.0-11.0)
[2019-04-05 08:14] LABS: ALBUMIN 3.5 g/dL (3.4-5.0); CALCIUM 8.9 mg/dL (8.5-10.1); CREATININE 0.7 mg/dL (0.6-1.0); GFR 90.9; POTASSIUM 3.8 mmol/L (3.5-5.1); TOTAL BILIRUBIN 0.2 mg/dL (0.2-1.0); TOTAL PROTEIN 6.9 g/dL (6.4-8.2); VANC TR 7.4 mcg/mL (10.0-20.0)
[2019-04-05] MEDS: VANCOMYCIN PER PHARMACY MC PRN ×2 (08:43→13:17)
[2019-04-05] MEDS: VANCOMYCIN 1 GM in IV NORMAL SALINE 250ML 250 ML IV SCH ×2 (08:53→16:41)
[2019-04-05] MEDS: LACTOBACILLUS RHAMNOSUS GG 1 CAPSULE. PO SCH ×2 (08:53→20:39)
[2019-04-05] MEDS: CIPROFLOXACIN 0.3% OPHTH SOLUTION 5ML BOTTLE. OU SCH ×4 (08:54→20:39)
[2019-04-05] MEDS: SERTRALINE 50 MG TABLET. PO SCH (08:54)
[2019-04-05] MEDS: clonazePAM 1 MG TABLET PO SCH ×3 (08:54→20:39)
[2019-04-05] MEDS: POTASSIUM CHLORIDE 20 MEQ TABLET.ER. PO SCH (08:54)
[2019-04-05] MEDS: FAMOTIDINE 20 MG TABLET. PO SCH ×2 (08:54→20:39)
[2019-04-05] MEDS: DOXYCYCLINE HYCLATE 100 MG TABLET PO SCH ×2 (08:54→20:39)
--- NOTE | 2019-04-05 09:21 | NUR ---
SW following. Discussed with RN. [facility] AN[facility] tried [facility] transfer again this morning, [facility] advised they are over capacity and cannot accept pt. [facility] advised the pt be taken to an eye doctor and then taken back to [facility] after the visit. RN advised pt still is not very alert today, and appears to be having difficulty opening the eye which is not swollen. Pt has shingles, is on 3 IV abx, 1 PO abx, and has an abx for the eye. PAT team will not be able to visit with pt due to pt being in isolation. SW will contact PAT team to determine recommendation for pt following up with them when leaving the hospital. MARCO ANTONIO will continue to follow.
--- NOTE | 2019-04-05 10:06 | PDOC ---
Infectious Disease Note Subjective: Subjective Pt cont to have swelling of rt eye ,having secretions, unable to open eye c/o pain blurred vision rash going up the forehead more pronounced today no f/c/n/v Vital Signs: Vital Signs Vital Signs Date Time Temp Pulse Resp B/P (MAP) Pulse Ox O2 Delivery O2 Flow Rate FiO2 04/05/19 08:00 Room Air 04/05/19 07:00 98.2 81 16 142/93 (109) 95 98.2 Physical Exam: PHYSICAL EXAM General: Alert, Oriented X3, Cooperative, mild distress Heent : Rt eye closed shut,unable to open swelling,erythema,tenderness of the rt periorbital area and eyelids, unable to openeyes, lt eye ok , rash over the rt frontal area, pentecostalism and eyelid more erythematous today Heart: Regular rate, Normal S1, Normal S2 Lungs: Clear Abdomen: Normal bowel sounds, Soft Extremities: No clubbing Skin: No rashes, No breakdown, Other (right frontal region rash with facial nerve distribution) Medications: Inpatient Meds: Current Medications Medications (Trade) Dose Ordered Sig/Nahum Start Time Stop Time Status Last Admin Dose Admin Acetaminophen (Tylenol) 650 mg PRN Q4HRS PRN 04/02/19 18:00 04/03/19 17:59 DC Acyclovir Sodium 500 mg/Dextrose 110 ml @ 110 mls/hr Q8HRS 04/03/19 11:00 04/05/19 06:17 110 MLS/HR Al Hydroxide/Mg Hydroxide (Mylanta Plus Xs) 30 ml PRN Q2HR PRN 04/02/19 22:45 Calcium Carbonate/ Glycine (Tums) 500 mg PRN AFTMEALHC PRN 04/02/19 22:45 Ciprofloxacin (Ciloxan Ophth) 1 drop 1X ONCE 04/02/19 22:30 04/02/19 22:31 DC 04/02/19 22:39 1 DROP Clindamycin Phosphate 50 ml @ 100 mls/hr Q8HRS 04/03/19 06:00 04/03/19 17:20 DC 04/03/19 14:00 100 MLS/HR Clonazepam (KlonoPIN) 1 mg TID 04/03/19 09:15 04/05/19 08:54 1 MG Doxycycline Hyclate (Vibra-Tab) 100 mg BID 04/03/19 21:00 04/05/19 08:54 100 MG Enoxaparin Sodium (Lovenox 40mg Syringe) 40 mg Q24H 04/02/19 22:30 04/04/19 22:54 40 MG Enoxaparin Sodium (Lovenox Per Pharmacy Prophylaxis Dosing) 1 each PRN DAILY PRN 04/02/19 22:30 04/04/19 12:11 DC Famotidine (Pepcid) 20 mg 1X ONCE 04/02/19 22:45 04/02/19 22:46 DC 04/02/19 22:51 20 MG Fentanyl Citrate (Fentanyl 2ml Vial) 50 mcg PRN Q2HR PRN 04/02/19 21:00 Fluorescein Sodium (Ful-Sophie) 1 strip 1X ONCE 04/02/19 16:30 04/02/19 16:31 DC 04/02/19 16:46 1 STRIP Lactobacillus Rhamnosus (Culturelle) 1 cap BID 04/03/19 21:00 04/05/19 08:53 1 CAP Linezolid (Zyvox) 600 mg BID 04/03/19 18:00 04/03/19 18:00 DC Meropenem 500 mg/ Sodium Chloride 50 ml @ 100 mls/hr Q6HRS 04/03/19 18:00 04/05/19 05:36 100 MLS/HR Methylprednisolone Sodium Succinate (SOLU-Medrol 125MG VIAL) 125 mg 1X ONCE 04/02/19 17:45 04/02/19 17:46 DC 04/02/19 17:58 125 MG Nicotine (Nicoderm Cq 21mg) 1 patch PRN DAILY PRN 04/02/19 21:30 04/03/19 08:12 1 PATCH Nicotine Polacrilex (Nicorette Gum) 1 each PRN Q1HR PRN 04/02/19 21:30 04/03/19 08:11 1 EACH Ondansetron HCl (Zofran) 4 mg PRN Q8HRS PRN 04/02/19 18:00 04/03/19 17:59 DC Oxycodone/ Acetaminophen (Percocet 5/325) 1 tab PRN Q4HRS PRN 04/02/19 21:00 04/04/19 05:09 1 TAB Potassium Chloride (Klor-Con) 20 meq DAILYWBKFT 04/04/19 08:00 04/05/19 08:54 20 MEQ Sertraline HCl (Zoloft) 50 mg DAILY 04/03/19 09:15 04/05/19 08:54 50 MG Tetracaine HCl (Tetracaine) 1 drop 1X ONCE 04/02/19 16:30 04/02/19 16:31 DC 04/02/19 16:46 1 DROP Vancomycin HCl (Vanco Per Pharmacy) 1 each PRN DAILY PRN 04/03/19 17:30 04/05/19 08:43 1 EACH Vancomycin HCl (Vancomycin Trough Level) 1 each 1X ONCE 04/06/19 08:00 04/06/19 08:01 Vancomycin HCl 1.25 gm/Sodium Chloride 250 ml @ 167 mls/hr Q12H 04/04/19 07:00 04/05/19 08:16 DC 04/04/19 19:58 167 MLS/HR Vancomycin HCl 1 gm/Sodium Chloride 250 ml @ 250 mls/hr Q8H 04/05/19 08:30 04/05/19 08:53 250 MLS/HR Vancomycin HCl 2 gm/Sodium Chloride 500 ml @ 250 mls/hr 1X ONCE 04/03/19 18:00 04/03/19 19:59 DC 04/03/19 19:08 250 MLS/HR Labs: Lab Laboratory Tests Test 04/05/19 07:05 White Blood Count 6.4 x10^3/uL (4.0-11.0) Red Blood Count 4.50 x10^6/uL (3.50-5.40) Hemoglobin 13.2 g/dL (12.0-15.5) Hematocrit 39.3 % (36.0-47.0) Mean Corpuscular Volume 88 fL (79-100) Mean Corpuscular Hemoglobin 29 pg (25-35) Mean Corpuscular Hemoglobin Concent 34 g/dL (31-37) Red Cell Distribution Width 13.0 % (11.5-14.5) Platelet Count 210 x10^3/uL (140-400) Neutrophils (%) (Auto) 57 % (31-73) Lymphocytes (%) (Auto) 35 % (24-48) Monocytes (%) (Auto) 6 % (0-9) Eosinophils (%) (Auto) 2 % (0-3) Basophils (%) (Auto) 1 % (0-3) Neutrophils # (Auto) 3.6 x10^3uL (1.8-7.7) Lymphocytes # (Auto) 2.2 x10^3/uL (1.0-4.8) Monocytes # (Auto) 0.4 x10^3/uL (0.0-1.1) Eosinophils # (Auto) 0.1 x10^3/uL (0.0-0.7) Basophils # (Auto) 0.0 x10^3/uL (0.0-0.2) Sodium Level 138 mmol/L (136-145) Potassium Level 3.8 mmol/L (3.5-5.1) Chloride Level 101 mmol/L (98-107) Carbon Dioxide Level 27 mmol/L (21-32) Anion Gap 10 (6-14) Blood Urea Nitrogen 7 mg/dL (7-20) Creatinine 0.7 mg/dL (0.6-1.0) Estimated GFR (Cockcroft-Gault) 90.9 BUN/Creatinine Ratio 10 (6-20) Glucose Level 112 mg/dL (70-99) Calcium Level 8.9 mg/dL (8.5-10.1) Total Bilirubin 0.2 mg/dL (0.2-1.0) Aspartate Amino Transf (AST/SGOT) 14 U/L (15-37) Alanine Aminotransferase (ALT/SGPT) 17 U/L (14-59) Alkaline Phosphatase 67 U/L (46-116) Total Protein 6.9 g/dL (6.4-8.2) Albumin 3.5 g/dL (3.4-5.0) Albumin/Globulin Ratio 1.0 (1.0-1.7) Vancomycin Level Trough 7.4 mcg/mL (10.0-20.0) Vancomycin Last Dose Date 04/04/19 Vancomycin Last Dose Time 1900 Micro BC neg Radiology MRI brain pending Objective: Assessment: Severe RT Jannette-orbital cellulitis etiology could be viral,bacterial Rt eye swelling and pain, Orbital infection with vitritis etc cannot be ruled out....RT eye closed shut,blurred vision.... 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 h/o IVDU and promiscuity h/o abnormal mammogram. Lost to follow-up Homelessness Anxiety Plan: Plan of Care Continue acyclovir cont meropenem and IV vanc,cipro gtt Monitor renal function closely cont doxycycline, check RMSF Igg; Ehrlichia igm igg d/w with pathology chief with significant tick exposure ehrlichiosis cannot be ruled out ehrlichia PCR not available per administration at this facility Consult ophthalmology;Opthalmology motion picture camera lens technician per RN will not see this pt here Local eye care MRI brain not done yet CT orbit and head ordered f/u serologies Chlamydia/gonorrhea, RPR, hepatitis panel ,HIV screen Will Need mammogram and f/u for breast abn as outpt BC neg so far Monitor labs/temp /cult Supportive care D/W Administration and pathology Difficult situation as opthalmology consult not available Pt is at risk of loosing her Rt eye without further evaluation Pt will need to be transferred to another center for opthalmology ,imaging and futher evaluation and treatment D/W Dr Ashley yesterday ;team is trying to transfer pt to [facility] Neurology consulted per primary team D/W Nursing GILLES SENIOR MD April 05, 2019 10:06
--- NOTE | 2019-04-05 10:35 | PDOC ---
PROGRESS NOTES History of Present Illness History of Present Illness Assessment/Plan Assessment/Plan periorbital cellulitis, RIGHT discomfort over the rt eyelid, rash going up the forehead no f/c/n/v/ rt eye cannot open the eye 5/ tobaccoism, obese, BMI 31 cont current abx, add cipro OU, concern for zoster etiology Herpes Zoster ophthalmicus suspected ID CONSULT rec transfer to [facility] FOR OPTH CONSULT iv zovirax Pt is at risk of loosing her Rt eye without further evaluation 42MIN PT EXAM, CHART REVIEW, > 50% OF TIME SPENT WITH EXAM, CHART REVIEW, PT CARE COORDINATION Vitals Vitals Vital Signs Date Time Temp Pulse Resp B/P (MAP) Pulse Ox O2 Delivery O2 Flow Rate FiO2 04/05/19 08:00 Room Air 04/05/19 07:00 98.2 81 16 142/93 (109) 95 98.2 Physical Exam Physical Exam General: Alert, Oriented X3, Cooperative, mild distress Heent : Rt eye closed shut,unable to open swelling,erythema,tenderness of the rt periorbital area and eyelids, unable to openeyes, lt eye ok , rash over the rt frontal area, cheondoism and eyelid Heart: Regular rate, Normal S1, Normal S2 Lungs: Clear Abdomen: Normal bowel sounds, Soft Extremities: No clubbing Skin: No rashes, No breakdown, Other (right frontal region rash with facial nerve distribution) General: Alert, Oriented X3, Cooperative, mild distress, Other (CANNOT OPEN RIGHT EYELID) Heart: Regular rate, Normal S1, Normal S2 Lungs: Clear Abdomen: Normal bowel sounds, Soft Extremities: No clubbing, No cyanosis Skin: No rashes, No breakdown, Other (right frontal region rash with facial nerve distribution) Labs LABS PQRS Compliance Statement: One or more of the following individualized dose reduction techniques were utilized for this examination: 1. Automated exposure control 2. Adjustment of the mA and/or kV according to patient size 3. Use of iterative reconstruction technique CT head and orbits without contrast 04/05/2019 10:45 AM INDICATION: Severe periorbital cellulitis. COMPARISON: CT head June 01, 2017 TECHNIQUE: Multiple axial CT images of the head and orbits were obtained from skull base through the vertex without intravenous contrast. FINDINGS: Head: Ventricles, sulci and basal cisterns are within normal limits. There is no hydrocephalus. Bethea-white matter differentiation is normal. There is no acute intracranial hemorrhage. There is no mass, mass effect or midline shift. Posterior fossa is normal in appearance. There is right periorbital skin thickening with subcutaneous fat stranding compatible with periorbital cellulitis. Subcutaneous edema extends inferiorly along the right malar soft tissues and laterally to the right periauricular region. Globes are spherical and contour. No lens dislocation. There is no intraorbital extension of inflammatory process. Optic nerves appear normal. Extraocular muscles are intact. Paranasal sinuses are well aerated. No subperiosteal abscess. Nasal septum is predominantly midline. Ostiomeatal units are widely patent. Calvaria is intact. IMPRESSION: No acute intracranial hemorrhage. Right periorbital cellulitis without orbital extension. Electronically signed by: Concetta Scott MD (04/05/2019 12:50 PM) [email or web address] Laboratory Tests Test 04/05/19 07:05 White Blood Count 6.4 x10^3/uL (4.0-11.0) Red Blood Count 4.50 x10^6/uL (3.50-5.40) Hemoglobin 13.2 g/dL (12.0-15.5) Hematocrit 39.3 % (36.0-47.0) Mean Corpuscular Volume 88 fL (79-100) Mean Corpuscular Hemoglobin 29 pg (25-35) Mean Corpuscular Hemoglobin Concent 34 g/dL (31-37) Red Cell Distribution Width 13.0 % (11.5-14.5) Platelet Count 210 x10^3/uL (140-400) Neutrophils (%) (Auto) 57 % (31-73) Lymphocytes (%) (Auto) 35 % (24-48) Monocytes (%) (Auto) 6 % (0-9) Eosinophils (%) (Auto) 2 % (0-3) Basophils (%) (Auto) 1 % (0-3) Neutrophils # (Auto) 3.6 x10^3uL (1.8-7.7) Lymphocytes # (Auto) 2.2 x10^3/uL (1.0-4.8) Monocytes # (Auto) 0.4 x10^3/uL (0.0-1.1) Eosinophils # (Auto) 0.1 x10^3/uL (0.0-0.7) Basophils # (Auto) 0.0 x10^3/uL (0.0-0.2) Sodium Level 138 mmol/L (136-145) Potassium Level 3.8 mmol/L (3.5-5.1) Chloride Level 101 mmol/L (98-107) Carbon Dioxide Level 27 mmol/L (21-32) Anion Gap 10 (6-14) Blood Urea Nitrogen 7 mg/dL (7-20) Creatinine 0.7 mg/dL (0.6-1.0) Estimated GFR (Cockcroft-Gault) 90.9 BUN/Creatinine Ratio 10 (6-20) Glucose Level 112 mg/dL (70-99) Calcium Level 8.9 mg/dL (8.5-10.1) Total Bilirubin 0.2 mg/dL (0.2-1.0) Aspartate Amino Transf (AST/SGOT) 14 U/L (15-37) Alanine Aminotransferase (ALT/SGPT) 17 U/L (14-59) Alkaline Phosphatase 67 U/L (46-116) Total Protein 6.9 g/dL (6.4-8.2) Albumin 3.5 g/dL (3.4-5.0) Albumin/Globulin Ratio 1.0 (1.0-1.7) Vancomycin Level Trough 7.4 mcg/mL (10.0-20.0) Vancomycin Last Dose Date 04/04/19 Vancomycin Last Dose Time 1900 Assessment and Plan Assessmemt and Plan Problems Medical Problems: (1) Cellulitis Status: Acute Comment Review of Relevant I have reviewed the following items kirstie (where applicable) has been applied. Labs Laboratory Tests Test 04/03/19 10:51 04/03/19 18:40 04/04/19 05:28 04/05/19 07:05 Varicella-Zoster IgG Antibody 3011 index (Immune >165) Urine Opiates Screen Neg (NEG) Urine Methadone Screen Neg (NEG) Urine Barbiturates Neg (NEG) Urine Phencyclidine Screen Neg (NEG) Urine Amphetamine/Methamphetamine Pos (NEG) Urine Benzodiazepines Screen Neg (NEG) Urine Cocaine Screen Neg (NEG) Urine Cannabinoids Screen Neg (NEG) Urine Ethyl Alcohol Neg (NEG) White Blood Count 5.9 x10^3/uL (4.0-11.0) 6.4 x10^3/uL (4.0-11.0) Red Blood Count 3.93 x10^6/uL (3.50-5.40) 4.50 x10^6/uL (3.50-5.40) Hemoglobin 11.8 g/dL (12.0-15.5) 13.2 g/dL (12.0-15.5) Hematocrit 34.4 % (36.0-47.0) 39.3 % (36.0-47.0) Mean Corpuscular Volume 87 fL (79-100) 88 fL (79-100) Mean Corpuscular Hemoglobin 30 pg (25-35) 29 pg (25-35) Mean Corpuscular Hemoglobin Concent 34 g/dL (31-37) 34 g/dL (31-37) Red Cell Distribution Width 13.2 % (11.5-14.5) 13.0 % (11.5-14.5) Platelet Count 173 x10^3/uL (140-400) 210 x10^3/uL (140-400) Neutrophils (%) (Auto) 52 % (31-73) 57 % (31-73) Lymphocytes (%) (Auto) 40 % (24-48) 35 % (24-48) Monocytes (%) (Auto) 6 % (0-9) 6 % (0-9) Eosinophils (%) (Auto) 2 % (0-3) 2 % (0-3) Basophils (%) (Auto) 1 % (0-3) 1 % (0-3) Neutrophils # (Auto) 3.0 x10^3uL (1.8-7.7) 3.6 x10^3uL (1.8-7.7) Lymphocytes # (Auto) 2.3 x10^3/uL (1.0-4.8) 2.2 x10^3/uL (1.0-4.8) Monocytes # (Auto) 0.4 x10^3/uL (0.0-1.1) 0.4 x10^3/uL (0.0-1.1) Eosinophils # (Auto) 0.1 x10^3/uL (0.0-0.7) 0.1 x10^3/uL (0.0-0.7) Basophils # (Auto) 0.0 x10^3/uL (0.0-0.2) 0.0 x10^3/uL (0.0-0.2) Sodium Level 139 mmol/L (136-145) 138 mmol/L (136-145) Potassium Level 3.8 mmol/L (3.5-5.1) 3.8 mmol/L (3.5-5.1) Chloride Level 105 mmol/L (98-107) 101 mmol/L (98-107) Carbon Dioxide Level 25 mmol/L (21-32) 27 mmol/L (21-32) Anion Gap 9 (6-14) 10 (6-14) Blood Urea Nitrogen 10 mg/dL (7-20) 7 mg/dL (7-20) Creatinine 0.8 mg/dL (0.6-1.0) 0.7 mg/dL (0.6-1.0) Estimated GFR (Cockcroft-Gault) 77.9 90.9 Glucose Level 106 mg/dL (70-99) 112 mg/dL (70-99) Calcium Level 8.1 mg/dL (8.5-10.1) 8.9 mg/dL (8.5-10.1) BUN/Creatinine Ratio 10 (6-20) Total Bilirubin 0.2 mg/dL (0.2-1.0) Aspartate Amino Transf (AST/SGOT) 14 U/L (15-37) Alanine Aminotransferase (ALT/SGPT) 17 U/L (14-59) Alkaline Phosphatase 67 U/L (46-116) Total Protein 6.9 g/dL (6.4-8.2) Albumin 3.5 g/dL (3.4-5.0) Albumin/Globulin Ratio 1.0 (1.0-1.7) Vancomycin Level Trough 7.4 mcg/mL (10.0-20.0) Vancomycin Last Dose Date 04/04/19 Vancomycin Last Dose Time 1900 Laboratory Tests Test 04/05/19 07:05 White Blood Count 6.4 x10^3/uL (4.0-11.0) Red Blood Count 4.50 x10^6/uL (3.50-5.40) Hemoglobin 13.2 g/dL (12.0-15.5) Hematocrit 39.3 % (36.0-47.0) Mean Corpuscular Volume 88 fL (79-100) Mean Corpuscular Hemoglobin 29 pg (25-35) Mean Corpuscular Hemoglobin Concent 34 g/dL (31-37) Red Cell Distribution Width 13.0 % (11.5-14.5) Platelet Count 210 x10^3/uL (140-400) Neutrophils (%) (Auto) 57 % (31-73) Lymphocytes (%) (Auto) 35 % (24-48) Monocytes (%) (Auto) 6 % (0-9) Eosinophils (%) (Auto) 2 % (0-3) Basophils (%) (Auto) 1 % (0-3) Neutrophils # (Auto) 3.6 x10^3uL (1.8-7.7) Lymphocytes # (Auto) 2.2 x10^3/uL (1.0-4.8) Monocytes # (Auto) 0.4 x10^3/uL (0.0-1.1) Eosinophils # (Auto) 0.1 x10^3/uL (0.0-0.7) Basophils # (Auto) 0.0 x10^3/uL (0.0-0.2) Sodium Level 138 mmol/L (136-145) Potassium Level 3.8 mmol/L (3.5-5.1) Chloride Level 101 mmol/L (98-107) Carbon Dioxide Level 27 mmol/L (21-32) Anion Gap 10 (6-14) Blood Urea Nitrogen 7 mg/dL (7-20) Creatinine 0.7 mg/dL (0.6-1.0) Estimated GFR (Cockcroft-Gault) 90.9 BUN/Creatinine Ratio 10 (6-20) Glucose Level 112 mg/dL (70-99) Calcium Level 8.9 mg/dL (8.5-10.1) Total Bilirubin 0.2 mg/dL (0.2-1.0) Aspartate Amino Transf (AST/SGOT) 14 U/L (15-37) Alanine Aminotransferase (ALT/SGPT) 17 U/L (14-59) Alkaline Phosphatase 67 U/L (46-116) Total Protein 6.9 g/dL (6.4-8.2) Albumin 3.5 g/dL (3.4-5.0) Albumin/Globulin Ratio 1.0 (1.0-1.7) Vancomycin Level Trough 7.4 mcg/mL (10.0-20.0) Vancomycin Last Dose Date 04/04/19 Vancomycin Last Dose Time 1900 Microbiology 04/02/19 Blood Culture - Preliminary, Resulted NO GROWTH AFTER 2 DAYS Medications Current Medications Fluorescein Sodium (Ful-Sophie) 1 strip 1X ONCE OD Last administered on 04/02/19at 16:46; Start 04/02/19 at 16:30; Stop 04/02/19 at 16:31; Status DC Tetracaine HCl (Tetracaine) 1 drop 1X ONCE OD Last administered on 04/02/19at 16:46; Start 04/02/19 at 16:30; Stop 04/02/19 at 16:31; Status DC Clindamycin Phosphate 50 ml @ 100 mls/hr 1X ONCE IV Last administered on at 16:47; Start 04/02/19 at 16:30; Stop 04/02/19 at 16:59; Status DC Methylprednisolone Sodium Succinate (SOLU-Medrol 125MG VIAL) 125 mg 1X ONCE IV Last administered on 04/02/19at 17:58; Start 04/02/19 at 17:45; Stop 04/02/19 at 17:46; Status DC Ondansetron HCl (Zofran) 4 mg PRN Q8HRS PRN IV NAUSEA/VOMITING; Start 04/02/19 at 18:00; Stop 04/03/19 at 17:59; Status DC Acetaminophen (Tylenol) 650 mg PRN Q4HRS PRN PO FEVER; Start 04/02/19 at 18:00; Stop 04/03/19 at 17:59; Status DC Fentanyl Citrate (Fentanyl 2ml Vial) 50 mcg PRN Q2HR PRN IV PAIN; Start 04/02/19 at 21:00 Oxycodone/ Acetaminophen (Percocet 5/325) 1 tab PRN Q4HRS PRN PO PAIN Last administered on 04/04/19at 05:09; Start 04/02/19 at 21:00 Nicotine (Nicoderm Cq 21mg) 1 patch PRN DAILY PRN TD SMOKING CESSATION Last administered on 04/03/19at 08:12; Start 04/02/19 at 21:30 Nicotine Polacrilex (Nicorette Gum) 1 each PRN Q1HR PRN BC SMOKING CESSATION Last administered on 04/03/19 08:11; Start 04/02/19 at 21:30 Ciprofloxacin (Ciloxan Ophth) 1 drop QID OU Last administered on 04/05/19 08:54; Start 04/03/19 at 09:00 Ciprofloxacin (Ciloxan Ophth) 1 drop 1X ONCE OD Last administered on 04/02/19at 22:39; Start 04/02/19 at 22:30; Stop 04/02/19 at 22:31; Status DC Clindamycin Phosphate 50 ml @ 100 mls/hr Q8HRS IV Last administered on 04/03/19at 14:00; Start 04/03/19 at 06:00; Stop 04/03/19 at 17:20; Status DC Enoxaparin Sodium (Lovenox Per Pharmacy Prophylaxis Dosing) 1 each PRN DAILY PRN MC SEE COMMENTS; Start 04/02/19 at 22:30; Stop 04/04/19 at 12:11; Status DC Calcium Carbonate/ Glycine (Tums) 500 mg PRN AFTMEALHC PRN PO INDIGESTION; Start 04/02/19 at 22:45 Al Hydroxide/Mg Hydroxide (Mylanta Plus Xs) 30 ml PRN Q2HR PRN PO HEARTBURN / GAS; Start 04/02/19 at 22:45 Famotidine (Pepcid) 20 mg BID PO Last administered on 04/05/19 08:54; Start 04/03/19 at 09:00 Famotidine (Pepcid) 20 mg 1X ONCE PO Last administered on 04/02/19at 22:51; Start 04/02/19 at 22:45; Stop 04/02/19 at 22:46; Status DC Enoxaparin Sodium (Lovenox 40mg Syringe) 40 mg Q24H SQ Last administered on 04/04/19at 22:54; Start 04/02/19 at 22:30 Clonazepam (KlonoPIN) 1 mg TID PO Last administered on 04/05/19 08:54; Start 04/03/19 at 09:15 Sertraline HCl (Zoloft) 50 mg DAILY PO Last administered on 04/05/19 08:54; Start 04/03/19 at 09:15 Acyclovir Sodium 500 mg/Dextrose 110 ml @ 110 mls/hr Q8HRS IV Last administered on 04/05/19 06:17; Start 04/03/19 at 11:00 Potassium Chloride (Klor-Con) 40 meq 1X ONCE PO Last administered on 04/03/19 13:01; Start 04/03/19 at 11:00; Stop 04/03/19 at 11:01; Status DC Potassium Chloride (Klor-Con) 20 meq DAILYWBKFT PO Last administered on 04/05/19 08:54; Start 04/04/19 at 08:00 Lactobacillus Rhamnosus (Culturelle) 1 cap BID PO Last administered on 04/05/19 08:53; Start 04/03/19 at 21:00 Meropenem 500 mg/ Sodium Chloride 50 ml @ 100 mls/hr Q6HRS IV Last administered on 04/05/19 05:36; Start 04/03/19 at 18:00 Linezolid (Zyvox) 600 mg BID PO ; Start 04/03/19 at 18:00; Stop 04/03/19 at 18:00; Status DC Vancomycin HCl 1 gm/Sodium Chloride 250 ml @ 250 mls/hr Q12H IV ; Start 04/03/19 at 17:15; Status UNV Vancomycin HCl 2 gm/Sodium Chloride 500 ml @ 250 mls/hr 1X ONCE IV Last administered on 04/03/19 19:08; Start 04/03/19 at 18:00; Stop 04/03/19 at 19:59; Status DC Vancomycin HCl (Vanco Per Pharmacy) 1 each PRN DAILY PRN MC SEE COMMENTS Last administered on 04/05/19 08:43; Start 04/03/19 at 17:30 Doxycycline Hyclate (Vibra-Tab) 100 mg BID PO Last administered on 04/05/19 08:54; Start 04/03/19 at 21:00 Vancomycin HCl 1.25 gm/Sodium Chloride 250 ml @ 167 mls/hr Q12H IV Last administered on 04/04/19at 19:58; Start 04/04/19 at 07:00; Stop 04/05/19 at 08:16; Status DC Vancomycin HCl (Vancomycin Trough Level) 1 each 1X ONCE MC Last administered on 04/05/19 06:30; Start 04/05/19 at 06:30; Stop 04/05/19 at 06:31; Status DC Vancomycin HCl 1 gm/Sodium Chloride 250 ml @ 250 mls/hr Q8H IV Last administered on 04/05/19at 08:53; Start 04/05/19 at 08:30 Vancomycin HCl (Vancomycin Trough Level) 1 each 1X ONCE MC ; Start 04/06/19 at 08:00; Stop 04/06/19 at 08:01 Active Scripts Active Zofran Odt (Ondansetron) 4 Mg Tab.rapdis 1 Tab SL Q8HRS Reported Clonazepam 1 Mg Tablet 1 Tab PO TID Zoloft (Sertraline Hcl) 50 Mg Tablet 1 Tab PO DAILY Vitals/I & O Vital Sign - Last 24 Hours 04/04/19 04/04/19 04/04/19 04/04/19 11:00 15:00 19:00 19:30 Temp 98.1 100.9 98.3 98.1 100.9 98.3 Pulse 82 91 98 Resp 16 18 20 B/P (MAP) 127/84 (98) 147/89 (108) 141/90 (107) Pulse Ox 95 96 96 O2 Delivery Room Air Room Air Room Air Room Air 04/04/19 04/05/19 04/05/19 04/05/19 23:00 03:00 07:00 08:00 Temp 98.4 99.1 98.2 98.4 99.1 98.2 Pulse 84 85 81 Resp 20 20 16 B/P (MAP) 149/94 (112) 144/86 (105) 142/93 (109) Pulse Ox 96 94 95 O2 Delivery Room Air Room Air Room Air Room Air Intake and Output 04/04/19 04/04/19 04/05/19 14:59 22:59 06:59 Intake Total 350 ml 240 ml 440 ml Output Total 1700 ml 1000 ml 600 ml Balance -1350 ml -760 ml -160 ml DM TAYLOR MD April 05, 2019 10:35
--- NOTE | 2019-04-05 10:51 | NUR ---
called consult into dr hardin at this time
[2019-04-05 12:45] VITALS: BP 131/95
--- NOTE | 2019-04-05 12:53 | RAD ---
RS Compliance Statement: One or more of the following individualized dose reduction techniques were utilized for this examination: 1. Automated exposure control 2. Adjustment of the mA and/or kV according to patient size 3. Use of iterative reconstruction technique CT head and orbits without contrast 04/05/2019 10:45 AM INDICATION: Severe periorbital cellulitis. COMPARISON: CT head June 01, 2017 TECHNIQUE: Multiple axial CT images of the head and orbits were obtained from skull base through the vertex without intravenous contrast. FINDINGS: Head: Ventricles, sulci and basal cisterns are within normal limits. There is no hydrocephalus. Bethea-white matter differentiation is normal. There is no acute intracranial hemorrhage. There is no mass, mass effect or midline shift. Posterior fossa is normal in appearance. There is right periorbital skin thickening with subcutaneous fat stranding compatible with periorbital cellulitis. Subcutaneous edema extends inferiorly along the right malar soft tissues and laterally to the right periauricular region. Globes are spherical and contour. No lens dislocation. There is no intraorbital extension of inflammatory process. Optic nerves appear normal. Extraocular muscles are intact. Paranasal sinuses are well aerated. No subperiosteal abscess. Nasal septum is predominantly midline. Ostiomeatal units are widely patent. Calvaria is intact. IMPRESSION: No acute intracranial hemorrhage. Right periorbital cellulitis without orbital extension. Electronically signed by: Concetta Scott MD (04/05/2019 12:50 PM) [email or web address]
--- NOTE | 2019-04-05 13:18 | NUR ---
Pharmacy Vancomycin Dosing Note S: Consulted to monitor and dose vancomycin started 04/03/19. O: NATALIE TRAORE is a 43 year old F with orbital cellulitis. Other Antibiotics: DOXYCYCLINE 100 MG PO BID MEROPENEM 500MG IV Q6HRS LABS: Last BUN: 7 Last Creatinine: 0.7 Creatinine Clearance: 87 mL/min Last WBC: 6.4 Last Procalcitonin: - Tmax (past 24 hours): 100.9 Microbiology: BLOOD CX (04/02): NGTD I/O: 1030/3300 Drug Levels: Last Trough level: 7.4 on 04/05/19 at 0705 Last dose given 04/05/19 at 1958 Vancomycin Dosing: Dosing Weight: Actual Target Trough: 10-20 A: Patient was receiving vancomycin 1250 mg IV q12hrs for cellulitis. A trough of 7.4 mcg/ml is below goal range. Renal function remains stable. P: 1. Change to Vancomycin 1000 mg IV q8h 2. Follow up Trough level on 04/06/19 at 0800 3. Pharmacy will continue to monitor, follow and adjust therapy as needed. FAITH MCCLURE [facility], 04/05/19 [id number]
--- NOTE | 2019-04-05 13:38 | PDOC2 ---
NEUROLOGY CONSULT Date of Admission Date of Admission DATE: 04/05/19 TIME: 13:29 Reason for Consult Reason for Consult: Encephalopathy or encephalitis Referring Physician Referring Physician: Dr. Arenas Source Source: Chart review, Patient History of Present Illness History of Present Illness The patient is a 43-year-old right-handed female who develop some cellulitis of the right orbital area after suffering an abrasion. Dr. Arenas is concerned that the patient may have associated encephalopathy or encephalitis. The patient was somewhat lethargic yesterday but nurse thinks the patient may have gone outside with a friend and taken illicit drugs. The patient is bright and alert now. She denies headache. She has had head injuries in the past. There is no history of stroke or seizure. The patient denies any focal neurological sym ptoms. 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 She does not have a local place to stay Current Medications Current Medications Current Medications Fluorescein Sodium (Ful-Sopihe) 1 strip 1X ONCE OD Last administered on 04/02/19at 16:46; Start 04/02/19 at 16:30; Stop 04/02/19 at 16:31; Status DC Tetracaine HCl (Tetracaine) 1 drop 1X ONCE OD Last administered on 04/02/19at 16:46; Start 04/02/19 at 16:30; Stop 04/02/19 at 16:31; Status DC Clindamycin Phosphate 50 ml @ 100 mls/hr 1X ONCE IV Last administered on 04/02/19at 16:47; Start 04/02/19 at 16:30; Stop 04/02/19 at 16:59; Status DC Methylprednisolone Sodium Succinate (SOLU-Medrol 125MG VIAL) 125 mg 1X ONCE IV Last administered on 04/02/19at 17:58; Start 04/02/19 at 17:45; Stop 04/02/19 at 17:46; Status DC Ondansetron HCl (Zofran) 4 mg PRN Q8HRS PRN IV NAUSEA/VOMITING; Start 04/02/19 at 18:00; Stop 04/03/19 at 17:59; Status DC Acetaminophen (Tylenol) 650 mg PRN Q4HRS PRN PO FEVER; Start 04/02/19 at 18:00; Stop 04/03/19 at 17:59; Status DC Fentanyl Citrate (Fentanyl 2ml Vial) 50 mcg PRN Q2HR PRN IV PAIN; Start 04/02/19 at 21:00 Oxycodone/ Acetaminophen (Percocet 5/325) 1 tab PRN Q4HRS PRN PO PAIN Last administered on 04/04/19at 05:09; Start 04/02/19 at 21:00 Nicotine (Nicoderm Cq 21mg) 1 patch PRN DAILY PRN TD SMOKING CESSATION Last administered on 04/03/19at 08:12; Start 04/02/19 at 21:30 Nicotine Polacrilex (Nicorette Gum) 1 each PRN Q1HR PRN BC SMOKING CESSATION Last administered on 04/03/19at 08:11; Start 04/02/19 at 21:30 Ciprofloxacin (Ciloxan Ophth) 1 drop QID OU Last administered on 04/05/19at 12:35; Start 04/03/19 at 09:00 Ciprofloxacin (Ciloxan Ophth) 1 drop 1X ONCE OD Last administered on 04/02/19at 22:39; Start 04/02/19 at 22:30; Stop 04/02/19 at 22:31; Status DC Clindamycin Phosphate 50 ml @ 100 mls/hr Q8HRS IV Last administered on 04/03/19at 14:00; Start 04/03/19 at 06:00; Stop 04/03/19 at 17:20; Status DC Enoxaparin Sodium (Lovenox Per Pharmacy Prophylaxis Dosing) 1 each PRN DAILY PRN MC SEE COMMENTS; Start 04/02/19 at 22:30; Stop 04/04/19 at 12:11; Status DC Calcium Carbonate/ Glycine (Tums) 500 mg PRN AFTMEALHC PRN PO INDIGESTION; Start 04/02/19 at 22:45 Al Hydroxide/Mg Hydroxide (Mylanta Plus Xs) 30 ml PRN Q2HR PRN PO HEARTBURN / GAS; Start 04/02/19 at 22:45 Famotidine (Pepcid) 20 mg BID PO Last administered on 04/05/19 08:54; Start 04/03/19 at 09:00 Famotidine (Pepcid) 20 mg 1X ONCE PO Last administered on 04/02/19 22:51; Start 04/02/19 at 22:45; Stop 04/02/19 at 22:46; Status DC Enoxaparin Sodium (Lovenox 40mg Syringe) 40 mg Q24H SQ Last administered on 04/04/19 22:54; Start 04/02/19 at 22:30 Clonazepam (KlonoPIN) 1 mg TID PO Last administered on 04/05/19 08:54; Start 04/03/19 at 09:15 Sertraline HCl (Zoloft) 50 mg DAILY PO Last administered on 04/05/19 08:54; Start 04/03/19 at 09:15 Acyclovir Sodium 500 mg/Dextrose 110 ml @ 110 mls/hr Q8HRS IV Last admini stered on 04/05/19 06:17; Start 04/03/19 at 11:00 Potassium Chloride (Klor-Con) 40 meq 1X ONCE PO Last administered on 04/03/19 13:01; Start 04/03/19 at 11:00; Stop 04/03/19 at 11:01; Status DC Potassium Chloride (Klor-Con) 20 meq DAILYWBKFT PO Last administered on 04/05/19 08:54; Start 04/04/19 at 08:00 Lactobacillus Rhamnosus (Culturelle) 1 cap BID PO Last administered on 04/05/19 08:53; Start 04/03/19 at 21:00 Meropenem 500 mg/ Sodium Chloride 50 ml @ 100 mls/hr Q6HRS IV Last administered on 04/05/19 12:34; Start 04/03/19 at 18:00 Linezolid (Zyvox) 600 mg BID PO ; Start 04/03/19 at 18:00; Stop 04/03/19 at 18:00; Status DC Vancomycin HCl 1 gm/Sodium Chloride 250 ml @ 250 mls/hr Q12H IV ; Start 04/03/19 at 17:15; Status UNV Vancomycin HCl 2 gm/Sodium Chloride 500 ml @ 250 mls/hr 1X ONCE IV Last administered on 04/03/19at 19:08; Start 04/03/19 at 18:00; Stop 04/03/19 at 19:59; Status DC Vancomycin HCl (Vanco Per Pharmacy) 1 each PRN DAILY PRN MC SEE COMMENTS Last administered on 04/05/19at 13:17; Start 04/03/19 at 17:30 Doxycycline Hyclate (Vibra-Tab) 100 mg BID PO Last administered on 04/05/19at 08:54; Start 04/03/19 at 21:00 Vancomycin HCl 1.25 gm/Sodium Chloride 250 ml @ 167 mls/hr Q12H IV Last administered on 04/04/19at 19:58; Start 04/04/19 at 07:00; Stop 04/05/19 at 08:16; Status DC Vancomycin HCl (Vancomycin Trough Level) 1 each 1X ONCE MC Last administered on 04/05/19at 06:30; Start 04/05/19 at 06:30; Stop 04/05/19 at 06:31; Status DC Vancomycin HCl 1 gm/Sodium Chloride 250 ml @ 250 mls/hr Q8H IV Last admi nistered on 04/05/19at 08:53; Start 04/05/19 at 08:30 Vancomycin HCl (Vancomycin Trough Level) 1 each 1X ONCE MC ; Start 04/06/19 at 08:00; Stop 04/06/19 at 08:01 Active Scripts Active Zofran Odt (Ondansetron) 4 Mg Tab.rapdis 1 Tab SL Q8HRS Reported Clonazepam 1 Mg Tablet 1 Tab PO TID Zoloft (Sertraline Hcl) 50 Mg Tablet 1 Tab PO DAILY Allergies Allergies: Coded Allergies: Penicillins (Verified Allergy, Mild, 05/11/15) ROS Review of System Negative for fever, chills, weight loss, shortness of breath, chest pain, indigestion, hematochezia, melena, and dysuria. Full 14-point review of systems is negative. Physical Exam Physical Examination General: Well-developed, well-nourished white female in no acute distress HEENT: Normocephalic andatraumatic. Area of cellulitis around the right orbit and extending superiorly. Temporal arteriespulsatile and nontender. Neck: Supple without bruit, no meningismus Musculoskeletal: Stability:see neurologic. Gait exam:see neurologic. Tone:see neurologic.Strength:see neurologic. Neurological: Mental Status:intact, orientation, memory, attention span/concentration, language, fund of knowledge normal. Cranial Nerves: She cannot open the right eye, the left pupil is reactive to light, left-eye extraocular movements areintact, visual dewitt are full to confrontation. Facial sensation is normal. There is no facial asymmetry other than that due to edema from the cellulitis. Vestibulo-ocular reflex is intact. Palate elevates and tongue protrudes in midline. All other cranial related problems are negative except as mentioned before.Reflexes:2+ and symmetric with flexor plantar responses. Motor:5/5 strength with normal tone and bulk. Coordination:Finger-nose finger and [id number] testing are normal. Rapid alternating movements and fine finger movements are intact. Gait:Normal, including tandem. Sensory:Normal pinprick, vibration, light touch, proprioception. Vitals VITALS Vital Signs Date Time Temp Pulse Resp B/P (MAP) Pulse Ox O2 Delivery O2 Flow Rate FiO2 04/05/19 08:00 Room Air 04/05/19 07:00 98.2 81 16 142/93 (109) 95 98.2 Labs Labs Laboratory Tests Test 04/03/19 18:25 04/03/19 18:40 04/04/19 05:28 04/05/19 07:05 Treponema pallidum Antibody Nonreactive (Nonreactive) Hepatitis A IgM Antibody Nonreactive (Nonreactive) Hepatitis B Surface Antigen Nonreactive (Nonreactive) Hepatitis B Core IgM Antibody Nonreactive (Nonreactive) Hepatitis C IgG Antibody Nonreactive (Nonreactive) HIV (1&2) Antibody Screen Nonreactive (Nonreactive) Urine Opiates Screen Neg (NEG) Urine Methadone Screen Neg (NEG) Urine Barbiturates Neg (NEG) Urine Phencyclidine Screen Neg (NEG) Urine Amphetamine/Methamphetamine Pos (NEG) Urine Benzodiazepines Screen Neg (NEG) Urine Cocaine Screen Neg (NEG) Urine Cannabinoids Screen Neg (NEG) Urine Ethyl Alcohol Neg (NEG) White Blood Count 5.9 x10^3/uL (4.0-11.0) 6.4 x10^3/uL (4.0-11.0) Red Blood Count 3.93 x10^6/uL (3.50-5.40) 4.50 x10^6/uL (3.50-5.40) Hemoglobin 11.8 g/dL (12.0-15.5) 13.2 g/dL (12.0-15.5) Hematocrit 34.4 % (36.0-47.0) 39.3 % (36.0-47.0) Mean Corpuscular Volume 87 fL (79-100) 88 fL (79-100) Mean Corpuscular Hemoglobin 30 pg (25-35) 29 pg (25-35) Mean Corpuscular Hemoglobin Concent 34 g/dL (31-37) 34 g/dL (31-37) Red Cell Distribution Width 13.2 % (11.5-14.5) 13.0 % (11.5-14.5) Platelet Count 173 x10^3/uL (140-400) 210 x10^3/uL (140-400) Neutrophils (%) (Auto) 52 % (31-73) 57 % (31-73) Lymphocytes (%) (Auto) 40 % (24-48) 35 % (24-48) Monocytes (%) (Auto) 6 % (0-9) 6 % (0-9) Eosinophils (%) (Auto) 2 % (0-3) 2 % (0-3) Basophils (%) (Auto) 1 % (0-3) 1 % (0-3) Neutrophils # (Auto) 3.0 x10^3uL (1.8-7.7) 3.6 x10^3uL (1.8-7.7) Lymphocytes # (Auto) 2.3 x10^3/uL (1.0-4.8) 2.2 x10^3/uL (1.0-4.8) Monocytes # (Auto) 0.4 x10^3/uL (0.0-1.1) 0.4 x10^3/uL (0.0-1.1) Eosinophils # (Auto) 0.1 x10^3/uL (0.0-0.7) 0.1 x10^3/uL (0.0-0.7) Basophils # (Auto) 0.0 x10^3/uL (0.0-0.2) 0.0 x10^3/uL (0.0-0.2) Sodium Level 139 mmol/L (136-145) 138 mmol/L (136-145) Potassium Level 3.8 mmol/L (3.5-5.1) 3.8 mmol/L (3.5-5.1) Chloride Level 105 mmol/L (98-107) 101 mmol/L (98-107) Carbon Dioxide Level 25 mmol/L (21-32) 27 mmol/L (21-32) Anion Gap 9 (6-14) 10 (6-14) Blood Urea Nitrogen 10 mg/dL (7-20) 7 mg/dL (7-20) Creatinine 0.8 mg/dL (0.6-1.0) 0.7 mg/dL (0.6-1.0) Estimated GFR (Cockcroft-Gault) 77.9 90.9 Glucose Level 106 mg/dL (70-99) 112 mg/dL (70-99) Calcium Level 8.1 mg/dL (8.5-10.1) 8.9 mg/dL (8.5-10.1) BUN/Creatinine Ratio 10 (6-20) Total Bilirubin 0.2 mg/dL (0.2-1.0) Aspartate Amino Transf (AST/SGOT) 14 U/L (15-37) Alanine Aminotransferase (ALT/SGPT) 17 U/L (14-59) Alkaline Phosphatase 67 U/L (46-116) Total Protein 6.9 g/dL (6.4-8.2) Albumin 3.5 g/dL (3.4-5.0) Albumin/Globulin Ratio 1.0 (1.0-1.7) Vancomycin Level Trough 7.4 mcg/mL (10.0-20.0) Vancomycin Last Dose Date 04/04/19 Vancomycin Last Dose Time 1900 Laboratory Tests Test 04/05/19 07:05 White Blood Count 6.4 x10^3/uL (4.0-11.0) Red Blood Count 4.50 x10^6/uL (3.50-5.40) Hemoglobin 13.2 g/dL (12.0-15.5) Hematocrit 39.3 % (36.0-47.0) Mean Corpuscular Volume 88 fL (79-100) Mean Corpuscular Hemoglobin 29 pg (25-35) Mean Corpuscular Hemoglobin Concent 34 g/dL (31-37) Red Cell Distribution Width 13.0 % (11.5-14.5) Platelet Count 210 x10^3/uL (140-400) Neutrophils (%) (Auto) 57 % (31-73) Lymphocytes (%) (Auto) 35 % (24-48) Monocytes (%) (Auto) 6 % (0-9) Eosinophils (%) (Auto) 2 % (0-3) Basophils (%) (Auto) 1 % (0-3) Neutrophils # (Auto) 3.6 x10^3uL (1.8-7.7) Lymphocytes # (Auto) 2.2 x10^3/uL (1.0-4.8) Monocytes # (Auto) 0.4 x10^3/uL (0.0-1.1) Eosinophils # (Auto) 0.1 x10^3/uL (0.0-0.7) Basophils # (Auto) 0.0 x10^3/uL (0.0-0.2) Sodium Level 138 mmol/L (136-145) Potassium Level 3.8 mmol/L (3.5-5.1) Chloride Level 101 mmol/L (98-107) Carbon Dioxide Level 27 mmol/L (21-32) Anion Gap 10 (6-14) Blood Urea Nitrogen 7 mg/dL (7-20) Creatinine 0.7 mg/dL (0.6-1.0) Estimated GFR (Cockcroft-Gault) 90.9 BUN/Creatinine Ratio 10 (6-20) Glucose Level 112 mg/dL (70-99) Calcium Level 8.9 mg/dL (8.5-10.1) Total Bilirubin 0.2 mg/dL (0.2-1.0) Aspartate Amino Transf (AST/SGOT) 14 U/L (15-37) Alanine Aminotransferase (ALT/SGPT) 17 U/L (14-59) Alkaline Phosphatase 67 U/L (46-116) Total Protein 6.9 g/dL (6.4-8.2) Albumin 3.5 g/dL (3.4-5.0) Albumin/Globulin Ratio 1.0 (1.0-1.7) Vancomycin Level Trough 7.4 mcg/mL (10.0-20.0) Vancomycin Last Dose Date 04/04/19 Vancomycin Last Dose Time [address] head and orbits without contrast 04/05/2019 10:45 AM FINDINGS: Head: Ventricles, sulci and basal cisterns are within normal limits. There is no hydrocephalus. Bethea-white matter differentiation is normal. There is no acute intracranial hemorrhage. There is no mass, mass effect or midline shift. Posterior fossa is normal in appearance. There is right periorbital skin thickening with subcutaneous fat stranding compatible with periorbital cellulitis. Subcutaneous edema extends inferiorly along the right malar soft tissues and laterally to the right periauricular region. Globes are spherical and contour. No lens dislocation. There is no intraorbital extension of inflammatory process. Optic nerves appear normal. Extraocular muscles are intact. Paranasal sinuses are well aerated. No subperiosteal abscess. Nasal septum is predominantly midline. Ostiomeatal units are widely patent. Calvaria is intact. IMPRESSION: No acute intracranial hemorrhage. Right periorbital cellulitis without orbital extension. Assessment/Plan Assessment/Plan Impression: Right orbital cellulitis, consider herpes zoster ophthalmicus No evidence of encephalopathy or encephalitis, I suspect she was drowsy yesterday from illicit drugs, perhaps. Positive meth/amphetamine in urine Recommendations: Await brain MRI Consider discharge so that she can be seen by our local ophthalmologists, alternately transfer to inpatient service at . Agree with infectious disease recommendations. I do not think that she needs a lumbar puncture. Discussed with Dr. Arenas Thank you for letting me help with the patient's care. TOSHA LOW MD April 05, 2019 13:38
[2019-04-05 15:00] VITALS: BP 131/83
[2019-04-05 19:00] VITALS: BP 135/81
[2019-04-05] MEDS: ENOXAPARIN 40 MG/0.4 ML SYRINGE. SQ SCH (22:04)
[2019-04-05 23:00] VITALS: BP 128/85
[2019-04-06] MEDS: VANCOMYCIN 1 GM in IV NORMAL SALINE 250ML 250 ML IV SCH ×3 (00:19→17:19)
[2019-04-06] MEDS: oxyCODONE/APAP 5/325 1 TAB TABLET PO PRN (01:40)
[2019-04-06 03:00] VITALS: BP 126/78
[2019-04-06] MEDS: MEROPENEM 500 MG in IV NORMAL SALINE 50ML 50 ML IV SCH ×3 (05:34→18:59)
[2019-04-06] MEDS: ACYCLOVIR SODIUM 500 MG in IV DEXTROSE 5% 100ML 100 ML IV SCH ×4 (06:20→22:44)
[2019-04-06 07:00] VITALS: BP 138/95
--- NOTE | 2019-04-06 08:02 | NUR ---
MARCO ANTONIO following for discharge planning. MARCO ANTONIO contacted [facility] for [facility] transfer, [facility] advised they are over capacity again today and cannot accept pt. MARCO ANTONIO received a phone call from Olivia at [facility], stating pt had called over to [facility] and told them she "can't see out of one eye and she needs someone to advocate for her." Olivia did not have any further information. MARCO ANTONIO will continue to follow. Addendum: 04/06/19 at 0826 by LANI BERNARD Discussed with RN, MARCO ANTONIO contacted PAT team, Eric is going to come by to see pt today. Waiting brain MRI. MARCO ANTONIO will continue to follow.
[2019-04-06] MEDS: LACTOBACILLUS RHAMNOSUS GG 1 CAPSULE. PO SCH ×2 (08:42→20:30)
[2019-04-06] MEDS: FAMOTIDINE 20 MG TABLET. PO SCH ×2 (08:42→20:31)
[2019-04-06] MEDS: SERTRALINE 50 MG TABLET. PO SCH (08:42)
[2019-04-06] MEDS: POTASSIUM CHLORIDE 20 MEQ TABLET.ER. PO SCH (08:42)
[2019-04-06] MEDS: clonazePAM 1 MG TABLET PO SCH ×3 (08:43→20:31)
[2019-04-06] MEDS: DOXYCYCLINE HYCLATE 100 MG TABLET PO SCH ×2 (08:43→20:30)
[2019-04-06] MEDS: CIPROFLOXACIN 0.3% OPHTH SOLUTION 5ML BOTTLE. OU SCH (08:43)
--- NOTE | 2019-04-06 08:45 | PDOC ---
Infectious Disease Note Subjective: Subjective Still has swelling of the Rt eye, unable to open it c/o pain cont to have blurred vision rash persists but not worsening no f/c/n/v/headache ROS: ROS Negative except for above. Vital Signs: Vital Signs Vital Signs Date Time Temp Pulse Resp B/P (MAP) Pulse Ox O2 Delivery O2 Flow Rate FiO2 04/06/19 07:00 97.7 77 17 138/95 (109) 96 Room Air 97.7 Physical Exam: PHYSICAL EXAM General: Alert, Oriented X3, Cooperative, mild distress Heent : Rt eye able to open some today, unable to examine swelling,erythema,tenderness of the rt periorbital area and eyelids, matting present lt eye ok , rash over the rt frontal area, muslim and eyelid not worsened Neck supple no tenderness, Heart: Regular rate, Normal S1, Normal S2 Lungs: Clear Abdomen: Normal bowel sounds, Soft Extremities: No clubbing Skin: No rashes, No breakdown, Other (right frontal region rash with facial nerve distribution) Medications: Inpatient Meds: Current Medications Medications (Trade) Dose Ordered Sig/Nahum Start Time Stop Time Status Last Admin Dose Admin Acetaminophen (Tylenol) 650 mg PRN Q4HRS PRN 04/02/19 18:00 04/03/19 17:59 DC Acyclovir Sodium 500 mg/Dextrose 110 ml @ 110 mls/hr Q8HRS 04/03/19 11:00 04/06/19 07:31 110 MLS/HR Al Hydroxide/Mg Hydroxide (Mylanta Plus Xs) 30 ml PRN Q2HR PRN 04/02/19 22:45 Calcium Carbonate/ Glycine (Tums) 500 mg PRN AFTMEALHC PRN 04/02/19 22:45 Ciprofloxacin (Ciloxan Ophth) 1 drop 1X ONCE 04/02/19 22:30 04/02/19 22:31 DC 04/02/19 22:39 1 DROP Clindamycin Phosphate 50 ml @ 100 mls/hr Q8HRS 04/03/19 06:00 04/03/19 17:20 DC 04/03/19 14:00 100 MLS/HR Clonazepam (KlonoPIN) 1 mg TID 04/03/19 09:15 04/05/19 08:54 1 MG Doxycycline Hyclate (Vibra-Tab) 100 mg BID 04/03/19 21:00 04/05/19 20:39 100 MG Enoxaparin Sodium (Lovenox 40mg Syringe) 40 mg Q24H 04/02/19 22:30 04/05/19 22:04 40 MG Enoxaparin Sodium (Lovenox Per Pharmacy Prophylaxis Dosing) 1 each PRN DAILY PRN 04/02/19 22:30 04/04/19 12:11 DC Famotidine (Pepcid) 20 mg 1X ONCE 04/02/19 22:45 04/02/19 22:46 DC 04/02/19 22:51 20 MG Fentanyl Citrate (Fentanyl 2ml Vial) 50 mcg PRN Q2HR PRN 04/02/19 21:00 Fluorescein Sodium (Ful-Sophie) 1 strip 1X ONCE 04/02/19 16:30 04/02/19 16:31 DC 04/02/19 16:46 1 STRIP Lactobacillus Rhamnosus (Culturelle) 1 cap BID 04/03/19 21:00 04/05/19 20:39 1 CAP Linezolid (Zyvox) 600 mg BID 04/03/19 18:00 04/03/19 18:00 DC Meropenem 500 mg/ Sodium Chloride 50 ml @ 100 mls/hr Q6HRS 04/03/19 18:00 04/06/19 05:34 100 MLS/HR Methylprednisolone Sodium Succinate (SOLU-Medrol 125MG VIAL) 125 mg 1X ONCE 04/02/19 17:45 04/02/19 17:46 DC 04/02/19 17:58 125 MG Nicotine (Nicoderm Cq 21mg) 1 patch PRN DAILY PRN 04/02/19 21:30 04/03/19 08:12 1 PATCH Nicotine Polacrilex (Nicorette Gum) 1 each PRN Q1HR PRN 04/02/19 21:30 04/03/19 08:11 1 EACH Ondansetron HCl (Zofran) 4 mg PRN Q8HRS PRN 04/02/19 18:00 04/03/19 17:59 DC Oxycodone/ Acetaminophen (Percocet 5/325) 1 tab PRN Q4HRS PRN 04/02/19 21:00 04/06/19 01:40 1 TAB Potassium Chloride (Klor-Con) 20 meq DAILYWBKFT 04/04/19 08:00 04/05/19 08:54 20 MEQ Sertraline HCl (Zoloft) 50 mg DAILY 04/03/19 09:15 04/05/19 08:54 50 MG Tetracaine HCl (Tetracaine) 1 drop 1X ONCE 04/02/19 16:30 04/02/19 16:31 DC 04/02/19 16:46 1 DROP Vancomycin HCl (Vanco Per Pharmacy) 1 each PRN DAILY PRN 04/03/19 17:30 04/05/19 13:17 1 EACH Vancomycin HCl (Vancomycin Trough Level) 1 each 1X ONCE 04/06/19 08:00 04/06/19 08:01 DC Vancomycin HCl 1.25 gm/Sodium Chloride 250 ml @ 167 mls/hr Q12H 04/04/19 07:00 04/05/19 08:16 DC 04/04/19 19:58 167 MLS/HR Vancomycin HCl 1 gm/Sodium Chloride 250 ml @ 250 mls/hr Q8H 04/05/19 08:30 04/06/19 00:19 250 MLS/HR Vancomycin HCl 2 gm/Sodium Chloride 500 ml @ 250 mls/hr 1X ONCE 04/03/19 18:00 04/03/19 19:59 DC 04/03/19 19:08 250 MLS/HR Labs: Micro BC neg CT orbit and head noted MRI brain pending Objective: Assessment: Severe RT Jannette-orbital cellulitis etiology could be viral,bacterial CT head /orbits shows Right periorbital cellulitis without orbital extension. Opthal evaluation not available Rt eye swelling and pain,blurred vision, Herpes Zoster ophthalmicus suspected of Rt face ,serologies pending PCN allergy, "heart stopped" Tick exposure, pt is not sure if she has had insect bite of the face and eyel id.... h/o IVDU and promiscuity, HIV,Hepatitis ,RPR, gono/chlam negative h/o abnormal mammogram. 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
--- NOTE | 2019-04-06 09:30 | PDOC ---
PROGRESS NOTES Assessment Problems Medical Problems: (1) Cellulitis Status: Acute Right orbital cellulitis, consider herpes zoster ophthalmicus No evidence of encephalopathy or encephalitis, I suspect she was drowsy yesterday from illicit drugs, perhaps. Positive meth/amphetamine in urine Plan Await brain MRI Consider discharge so that she can be seen by our local ophthalmologists, alternately transfer to inpatient service at . Agree with infectious disease recommendations. I do not think that she needs a lumbar puncture. Subjective Feels better Objective Vital Signs Date Time Temp Pulse Resp B/P (MAP) Pulse Ox O2 Delivery O2 Flow Rate FiO2 04/06/19 07:00 97.7 77 17 138/95 (109) 96 Room Air 97.7 Intake and Output 04/06/19 07:00 Intake Total 530 ml Output Total 3100 ml Balance -2570 ml Intake Oral 180 ml IV Total 350 ml Output Urine Total 3100 ml # Voids 2 PHYSICAL EXAM Right ophthalmic-distribution rash Alert. Oriented to time, place and person. PERRL. EOMI. CN: no focal findings.Right eye swelling better Muscle tone: normal. Muscle strength: 5/5 DTR: 2+ Plantar reflex: [ ] Gait: not examined in bed. Sensory exam: no abnormal findings. No cerebellar signs elicited. Review of Relevant I have reviewed the following items kirstie (where applicable) has been applied. Labs Laboratory Tests Test 04/05/19 07:05 White Blood Count 6.4 x10^3/uL (4.0-11.0) Red Blood Count 4.50 x10^6/uL (3.50-5.40) Hemoglobin 13.2 g/dL (12.0-15.5) Hematocrit 39.3 % (36.0-47.0) Mean Corpuscular Volume 88 fL (79-100) Mean Corpuscular Hemoglobin 29 pg (25-35) Mean Corpuscular Hemoglobin Concent 34 g/dL (31-37) Red Cell Distribution Width 13.0 % (11.5-14.5) Platelet Count 210 x10^3/uL (140-400) Neutrophils (%) (Auto) 57 % (31-73) Lymphocytes (%) (Auto) 35 % (24-48) Monocytes (%) (Auto) 6 % (0-9) Eosinophils (%) (Auto) 2 % (0-3) Basophils (%) (Auto) 1 % (0-3) Neutrophils # (Auto) 3.6 x10^3uL (1.8-7.7) Lymphocytes # (Auto) 2.2 x10^3/uL (1.0-4.8) Monocytes # (Auto) 0.4 x10^3/uL (0.0-1.1) Eosinophils # (Auto) 0.1 x10^3/uL (0.0-0.7) Basophils # (Auto) 0.0 x10^3/uL (0.0-0.2) Sodium Level 138 mmol/L (136-145) Potassium Level 3.8 mmol/L (3.5-5.1) Chloride Level 101 mmol/L (98-107) Carbon Dioxide Level 27 mmol/L (21-32) Anion Gap 10 (6-14) Blood Urea Nitrogen 7 mg/dL (7-20) Creatinine 0.7 mg/dL (0.6-1.0) Estimated GFR (Cockcroft-Gault) 90.9 BUN/Creatinine Ratio 10 (6-20) Glucose Level 112 mg/dL (70-99) Calcium Level 8.9 mg/dL (8.5-10.1) Total Bilirubin 0.2 mg/dL (0.2-1.0) Aspartate Amino Transf (AST/SGOT) 14 U/L (15-37) Alanine Aminotransferase (ALT/SGPT) 17 U/L (14-59) Alkaline Phosphatase 67 U/L (46-116) Total Protein 6.9 g/dL (6.4-8.2) Albumin 3.5 g/dL (3.4-5.0) Albumin/Globulin Ratio 1.0 (1.0-1.7) Vancomycin Level Trough 7.4 mcg/mL (10.0-20.0) Vancomycin Last Dose Date 04/04/19 Vancomycin Last Dose Time 1900 Microbiology 04/02/19 Blood Culture - Preliminary, Resulted NO GROWTH AFTER 3 DAYS Medications Current Medications Fluorescein Sodium (Ful-Sophie) 1 strip 1X ONCE OD Last administered on 04/02/19at 16:46; Start 04/02/19 at 16:30; Stop 04/02/19 at 16:31; Status DC Tetracaine HCl (Tetracaine) 1 drop 1X ONCE OD Last administered on 04/02/19at 16:46; Start 04/02/19 at 16:30; Stop 04/02/19 at 16:31; Status DC Clindamycin Phosphate 50 ml @ 100 mls/hr 1X ONCE IV Last administered on 04/02/19 16:47; Start 04/02/19 at 16:30; Stop 04/02/19 at 16:59; Status DC Methylprednisolone Sodium Succinate (SOLU-Medrol 125MG VIAL) 125 mg 1X ONCE IV Last administered on 04/02/19 17:58; Start 04/02/19 at 17:45; Stop 04/02/19 at 17:46; Status DC Ondansetron HCl (Zofran) 4 mg PRN Q8HRS PRN IV NAUSEA/VOMITING; Start 04/02/19 at 18:00; Stop 04/03/19 at 17:59; Status DC Acetaminophen (Tylenol) 650 mg PRN Q4HRS PRN PO FEVER; Start 04/02/19 at 18:00; Stop 04/03/19 at 17:59; Status DC Fentanyl Citrate (Fentanyl 2ml Vial) 50 mcg PRN Q2HR PRN IV PAIN; Start 04/02/19 at 21:00 Oxycodone/ Acetaminophen (Percocet 5/325) 1 tab PRN Q4HRS PRN PO PAIN Last administered on 04/06/19 01:40; Start 04/02/19 at 21:00 Nicotine (Nicoderm Cq 21mg) 1 patch PRN DAILY PRN TD SMOKING CESSATION Last administered on 04/03/19 08:12; Start 04/02/19 at 21:30 Nicotine Polacrilex (Nicorette Gum) 1 each PRN Q1HR PRN BC SMOKING CESSATION Last administered on 04/03/19 08:11; Start 04/02/19 at 21:30 Ciprofloxacin (Ciloxan Ophth) 1 drop QID OU Last administered on 04/06/19 08:43; Start 04/03/19 at 09:00 Ciprofloxacin (Ciloxan Ophth) 1 drop 1X ONCE OD Last administered on 04/02/19 22:39; Start 04/02/19 at 22:30; Stop 04/02/19 at 22:31; Status DC Clindamycin Phosphate 50 ml @ 100 mls/hr Q8HRS IV Last administered on 04/03/19 14:00; Start 04/03/19 at 06:00; Stop 04/03/19 at 17:20; Status DC Enoxaparin Sodium (Lovenox Per Pharmacy Prophylaxis Dosing) 1 each PRN DAILY PRN MC SEE COMMENTS; Start 04/02/19 at 22:30; Stop 04/04/19 at 12:11; Status DC Calcium Carbonate/ Glycine (Tums) 500 mg PRN AFTMEALHC PRN PO INDIGESTION; Start 04/02/19 at 22:45 Al Hydroxide/Mg Hydroxide (Mylanta Plus Xs) 30 ml PRN Q2HR PRN PO HEARTBURN / GAS; Start 04/02/19 at 22:45 Famotidine (Pepcid) 20 mg BID PO Last administered on 04/06/19 08:42; Start 04/03/19 at 09:00 Famotidine (Pepcid) 20 mg 1X ONCE PO Last administered on 04/02/19 22:51; Start 04/02/19 at 22:45; Stop 04/02/19 at 22:46; Status DC Enoxaparin Sodium (Lovenox 40mg Syringe) 40 mg Q24H SQ Last administered on 04/05/19 22:04; Start 04/02/19 at 22:30 Clonazepam (KlonoPIN) 1 mg TID PO Last administered on 04/06/19 08:43; Start 04/03/19 at 09:15 Sertraline HCl (Zoloft) 50 mg DAILY PO Last administered on 04/06/19 08:42; Start 04/03/19 at 09:15 Acyclovir Sodium 500 mg/Dextrose 110 ml @ 110 mls/hr Q8HRS IV Last administered on 04/06/19 07:31; Start 04/03/19 at 11:00 Potassium Chloride (Klor-Con) 40 meq 1X ONCE PO Last administered on 04/03/19 13:01; Start 04/03/19 at 11:00; Stop 04/03/19 at 11:01; Status DC Potassium Chloride (Klor-Con) 20 meq DAILYWBKFT PO Last administered on 04/06/19 08:42; Start 04/04/19 at 08:00 Lactobacillus Rhamnosus (Culturelle) 1 cap BID PO Last administered on 04/06/19 08:42; Start 04/03/19 at 21:00 Meropenem 500 mg/ Sodium Chloride 50 ml @ 100 mls/hr Q6HRS IV Last administered on 04/06/19at 05:34; Start 04/03/19 at 18:00 Linezolid (Zyvox) 600 mg BID PO ; Start 04/03/19 at 18:00; Stop 04/03/19 at 18:00; Status DC Vancomycin HCl 1 gm/Sodium Chloride 250 ml @ 250 mls/hr Q12H IV ; Start 04/03/19 at 17:15; Status UNV Vancomycin HCl 2 gm/Sodium Chloride 500 ml @ 250 mls/hr 1X ONCE IV Last administered on 04/03/19 19:08; Start 04/03/19 at 18:00; Stop 04/03/19 at 19:59; Status DC Vancomycin HCl (Vanco Per Pharmacy) 1 each PRN DAILY PRN MC SEE COMMENTS Last administered on 04/05/19at 13:17; Start 04/03/19 at 17:30 Doxycycline Hyclate (Vibra-Tab) 100 mg BID PO Last administered on 04/06/19at 08:43; Start 04/03/19 at 21:00 Vancomycin HCl 1.25 gm/Sodium Chloride 250 ml @ 167 mls/hr Q12H IV Last administered on 04/04/19at 19:58; Start 04/04/19 at 07:00; Stop 04/05/19 at 08:16; Status DC Vancomycin HCl (Vancomycin Trough Level) 1 each 1X ONCE MC Last administered on 04/05/19 06:30; Start 04/05/19 at 06:30; Stop 04/05/19 at 06:31; Status DC Vancomycin HCl 1 gm/Sodium Chloride 250 ml @ 250 mls/hr Q8H IV Last administered on 04/06/19at 00:19; Start 04/05/19 at 08:30 Vancomycin HCl (Vancomycin Trough Level) 1 each 1X ONCE MC Last administered on 04/06/19at 08:00; Start 04/06/19 at 08:00; Stop 04/06/19 at 08:01; Status DC Active Scripts Active Zofran Odt (Ondansetron) 4 Mg Tab.rapdis 1 Tab SL Q8HRS Reported Clonazepam 1 Mg Tablet 1 Tab PO TID Zoloft (Sertraline Hcl) 50 Mg Tablet 1 Tab PO DAILY Vitals/I & O Vital Sign - Last 24 Hours 04/05/19 04/05/19 04/05/19 04/05/19 12:45 15:00 19:00 19:55 Temp 97.9 98.5 97.9 98.5 Pulse 83 88 82 Resp 20 16 18 B/P (MAP) 131/95 (107) 131/83 (99) 135/81 (99) Pulse Ox 96 97 95 O2 Delivery Room Air Room Air Room Air Room Air 04/05/19 04/06/19 04/06/19 04/06/19 23:00 01:40 02:40 03:00 Temp 98.3 97.8 98.3 97.8 Pulse 91 66 Resp 18 18 B/P (MAP) 128/85 (99) 126/78 (94) Pulse Ox 93 95 O2 Delivery Room Air Room Air Room Air Room Air 04/06/19 07:00 Temp 97.7 97.7 Pulse 77 Resp 17 B/P (MAP) 138/95 (109) Pulse Ox 96 O2 Delivery Room Air Intake and Output 04/05/19 04/05/19 04/06/19 15:00 23:00 07:00 Intake Total 530 ml Output Total 600 ml 1400 ml 1100 ml Balance -70 ml -1400 ml -1100 ml TOSHA LOW MD April 06, 2019 09:30
[2019-04-06 09:39] LABS: VANC TR 12.4 mcg/mL (10.0-20.0)
[2019-04-06] MEDS: VANCOMYCIN PER PHARMACY MC PRN (09:50)
--- NOTE | 2019-04-06 09:52 | NUR ---
Pharmacy Vancomycin Dosing Note S:Consulted to monitor and dose vancomycin started 04/03/19. O:NATALIE TRAORE is a 43 year old F with Cellulitis ORBITAL . Height: 5 feet, 2 inches Weight: 79.452482 kg [place] Body Weight: 50.10 Adjusted Body Weight: 61.66 Dosing Weight: Actual Other Antibiotics: DOXYCYCLINE 100 MG PO BID MEROPENEM 500MG IV Q6HRS LABS: Last BUN: 7 Last Creatinine: 0.7 Creatinine Clearance: 100 mL/min Last WBC: 6.4 Last Procalcitonin: - Tmax (past 24 hours): 98.3 Microbiology: BLOOD CX (04/02): NGTD I/O: 500/3100 Drug Levels: Last Trough level: 12.4 on 04/06/19 at 0815 Last dose given 04/06/19 at 0019 Vancomycin Dosing: Loading Dose: 2000 mg x1 Dosing Weight: Actual Target Trough: 10-20 A: Based on: therapeutic trough P: 1. Continue Vancomycin 1000 mg IV q8h 2. Follow up Trough level as needed. 3. Pharmacy will continue to monitor, follow and adjust therapy as needed. LEONARD NICHOLAS RP, 04/06/19 [id number]
--- NOTE | 2019-04-06 10:15 | PDOC ---
PROGRESS NOTES History of Present Illness History of Present Illness Assessment/Plan Assessment/Plan periorbital cellulitis, RIGHT discomfort over the rt eyelid, rash going up the forehead now painful no f/c/n/v/ rt eye cannot open the eye 04/04, 04/05/ ,04/06 Right periorbital cellulitis without orbital extension. tobaccoism, ILLICIT DRUG USE obese, BMI 31 cont current abx, add cipro OU, concern for zoster etiology Herpes Zoster ophthalmicus suspected ID CONSULT rec transfer to [facility] FOR OPTH CONSULT iv zovirax UDS repeat today Pt is at risk of loosing her Rt eye without further evaluation await transfer to [facility] 46MIN PT EXAM, CHART REVIEW, > 50% OF TIME SPENT WITH EXAM, CHART REVIEW, PT CARE COORDINATION Vitals Vitals Vital Signs Date Time Temp Pulse Resp B/P (MAP) Pulse Ox O2 Delivery O2 Flow Rate FiO2 04/06/19 08:00 Room Air 04/06/19 07:00 97.7 77 17 138/95 (109) 96 97.7 Physical Exam Physical Exam General: Alert, Oriented X3, Cooperative, mild distress Heent : Rt eye able to open some today, unable to examine swelling,erythema,tenderness of the rt periorbital area and eyelids, matting present lt eye ok , rash over the rt frontal area, taoist and eyelid not worsened Neck supple no tenderness, Heart: Regular rate, Normal S1, Normal S2 Lungs: Clear Abdomen: Normal bowel sounds, Soft Extremities: No clubbing Skin: No rashes, No breakdown, Other (right frontal region rash with facial nerve distribution) General: Alert, Oriented X3, Cooperative, mild distress, Other (CANNOT OPEN RIGHT EYELID) Heart: Regular rate, Normal S1, Normal S2, No murmurs Lungs: Clear Abdomen: Normal bowel sounds, Soft Extremities: No clubbing, No cyanosis Skin: No rashes, No breakdown, Other (right frontal region rash with facial nerve distribution) Labs LABS CT head and orbits without contrast 04/05/2019 10:45 AM INDICATION: Severe periorbital cellulitis. COMPARISON: CT head June 01, 2017 TECHNIQUE: Multiple axial CT images of the head and orbits were obtained from skull base through the vertex without intravenous contrast. FINDINGS: Head: Ventricles, sulci and basal cisterns are within normal limits. There is no hydrocephalus. Bethea-white matter differentiation is normal. There is no acute intracranial hemorrhage. There is no mass, mass effect or midline shift. Posterior fossa is normal in appearance. There is right periorbital skin thickening with subcutaneous fat stranding compatible with periorbital cellulitis. Subcutaneous edema extends inferiorly along the right malar soft tissues and laterally to the right periauricular region. Globes are spherical and contour. No lens dislocation. There is no intraorbital extension of inflammatory process. Optic nerves appear normal. Extraocular muscles are intact. Paranasal sinuses are well aerated. No subperiosteal abscess. Nasal septum is predominantly midline. Ostiomeatal units are widely patent. Calvaria is intact. IMPRESSION: No acute intracranial hemorrhage. Right periorbital cellulitis without orbital extension. Electronically signed by: Juma Scott MD (04/05/2019 12:50 PM) [id number] DICTATED and SIGNED BY: JUMA SCOTT MD DATE: 04/05/19 1250 Laboratory Tests Test 04/06/19 08:15 Vancomycin Level Trough 12.4 mcg/mL (10.0-20.0) Vancomycin Last Dose Date 04/06/19 Vancomycin Last Dose Time 0030 Assessment and Plan Assessmemt and Plan Problems Medical Problems: (1) Cellulitis Status: Acute Comment Review of Relevant I have reviewed the following items kirstie (where applicable) has been applied. Labs Laboratory Tests Test 04/05/19 07:05 04/06/19 08:15 White Blood Count 6.4 x10^3/uL (4.0-11.0) Red Blood Count 4.50 x10^6/uL (3.50-5.40) Hemoglobin 13.2 g/dL (12.0-15.5) Hematocrit 39.3 % (36.0-47.0) Mean Corpuscular Volume 88 fL (79-100) Mean Corpuscular Hemoglobin 29 pg (25-35) Mean Corpuscular Hemoglobin Concent 34 g/dL (31-37) Red Cell Distribution Width 13.0 % (11.5-14.5) Platelet Count 210 x10^3/uL (140-400) Neutrophils (%) (Auto) 57 % (31-73) Lymphocytes (%) (Auto) 35 % (24-48) Monocytes (%) (Auto) 6 % (0-9) Eosinophils (%) (Auto) 2 % (0-3) Basophils (%) (Auto) 1 % (0-3) Neutrophils # (Auto) 3.6 x10^3uL (1.8-7.7) Lymphocytes # (Auto) 2.2 x10^3/uL (1.0-4.8) Monocytes # (Auto) 0.4 x10^3/uL (0.0-1.1) Eosinophils # (Auto) 0.1 x10^3/uL (0.0-0.7) Basophils # (Auto) 0.0 x10^3/uL (0.0-0.2) Sodium Level 138 mmol/L (136-145) Potassium Level 3.8 mmol/L (3.5-5.1) Chloride Level 101 mmol/L (98-107) Carbon Dioxide Level 27 mmol/L (21-32) Anion Gap 10 (6-14) Blood Urea Nitrogen 7 mg/dL (7-20) Creatinine 0.7 mg/dL (0.6-1.0) Estimated GFR (Cockcroft-Gault) 90.9 BUN/Creatinine Ratio 10 (6-20) Glucose Level 112 mg/dL (70-99) Calcium Level 8.9 mg/dL (8.5-10.1) Total Bilirubin 0.2 mg/dL (0.2-1.0) Aspartate Amino Transf (AST/SGOT) 14 U/L (15-37) Alanine Aminotransferase (ALT/SGPT) 17 U/L (14-59) Alkaline Phosphatase 67 U/L (46-116) Total Protein 6.9 g/dL (6.4-8.2) Albumin 3.5 g/dL (3.4-5.0) Albumin/Globulin Ratio 1.0 (1.0-1.7) Vancomycin Level Trough 7.4 mcg/mL (10.0-20.0) 12.4 mcg/mL (10.0-20.0) Vancomycin Last Dose Date 04/04/19 04/06/19 Vancomycin Last Dose Time 190 003 Laboratory Tests Test 04/06/19 08:15 Vancomycin Level Trough 12.4 mcg/mL (10.0-20.0) Vancomycin Last Dose Date 04/06/19 Vancomycin Last Dose Time 0 Microbiology 04/02/19 Blood Culture - Preliminary, Resulted NO GROWTH AFTER 3 DAYS Medications Current Medications Fluorescein Sodium (Ful-Sophie) 1 strip 1X ONCE OD Last administered on 04/02/19 16:46; Start 04/02/19 at 16:30; Stop 04/02/19 at 16:31; Status DC Tetracaine HCl (Tetracaine) 1 drop 1X ONCE OD Last administered on 04/02/19 16:46; Start 04/02/19 at 16:30; Stop 04/02/19 at 16:31; Status DC Clindamycin Phosphate 50 ml @ 100 mls/hr 1X ONCE IV Last administered on 04/02/19 16:47; Start 04/02/19 at 16:30; Stop 04/02/19 at 16:59; Status DC Methylprednisolone Sodium Succinate (SOLU-Medrol 125MG VIAL) 125 mg 1X ONCE IV Last administered on 04/02/19 17:58; Start 04/02/19 at 17:45; Stop 04/02/19 at 17:46; Status DC Ondansetron HCl (Zofran) 4 mg PRN Q8HRS PRN IV NAUSEA/VOMITING; Start 04/02/19 at 18:00; Stop 04/03/19 at 17:59; Status DC Acetaminophen (Tylenol) 650 mg PRN Q4HRS PRN PO FEVER; Start 04/02/19 at 18:00; Stop 04/03/19 at 17:59; Status DC Fentanyl Citrate (Fentanyl 2ml Vial) 50 mcg PRN Q2HR PRN IV PAIN; Start 04/02/19 at 21:00 Oxycodone/ Acetaminophen (Percocet 5/325) 1 tab PRN Q4HRS PRN PO PAIN Last administered on 04/06/19at 01:40; Start 04/02/19 at 21:00 Nicotine (Nicoderm Cq 21mg) 1 patch PRN DAILY PRN TD SMOKING CESSATION Last administered on 04/03/19 08:12; Start 04/02/19 at 21:30 Nicotine Polacrilex (Nicorette Gum) 1 each PRN Q1HR PRN BC SMOKING CESSATION Last administered on 04/03/19 08:11; Start 04/02/19 at 21:30 Ciprofloxacin (Ciloxan Ophth) 1 drop QID OU Last administered on 04/06/19 08:43; Start 04/03/19 at 09:00; Stop 04/06/19 at 09:37; Status DC Ciprofloxacin (Ciloxan Ophth) 1 drop 1X ONCE OD Last administered on 04/02/19at 22:39; Start 04/02/19 at 22:30; Stop 04/02/19 at 22:31; Status DC Clindamycin Phosphate 50 ml @ 100 mls/hr Q8HRS IV Last administered on 04/03/19at 14:00; Start 04/03/19 at 06:00; Stop 04/03/19 at 17:20; Status DC Enoxaparin Sodium (Lovenox Per Pharmacy Prophylaxis Dosing) 1 each PRN DAILY PRN MC SEE COMMENTS; Start 04/02/19 at 22:30; Stop 04/04/19 at 12:11; Status DC Calcium Carbonate/ Glycine (Tums) 500 mg PRN AFTMEALHC PRN PO INDIGESTION; Start 04/02/19 at 22:45 Al Hydroxide/Mg Hydroxide (Mylanta Plus Xs) 30 ml PRN Q2HR PRN PO HEARTBURN / GAS; Start 04/02/19 at 22:45 Famotidine (Pepcid) 20 mg BID PO Last administered on 04/06/19 08:42; Start 04/03/19 at 09:00 Famotidine (Pepcid) 20 mg 1X ONCE PO Last administered on 04/02/19 22:51; Start 04/02/19 at 22:45; Stop 04/02/19 at 22:46; Status DC Enoxaparin Sodium (Lovenox 40mg Syringe) 40 mg Q24H SQ Last administered on 04/05/19 22:04; Start 04/02/19 at 22:30 Clonazepam (KlonoPIN) 1 mg TID PO Last administered on 04/06/19 08:43; Start 04/03/19 at 09:15 Sertraline HCl (Zoloft) 50 mg DAILY PO Last administered on 04/06/19 08:42; Start 04/03/19 at 09:15 Acyclovir Sodium 500 mg/Dextrose 110 ml @ 110 mls/hr Q8HRS IV Last administered on 04/06/19 07:31; Start 04/03/19 at 11:00 Potassium Chloride (Klor-Con) 40 meq 1X ONCE PO Last administered on 04/03/19 13:01; Start 04/03/19 at 11:00; Stop 04/03/19 at 11:01; Status DC Potassium Chloride (Klor-Con) 20 meq DAILYWBKFT PO Last administered on 04/06/19 08:42; Start 04/04/19 at 08:00 Lactobacillus Rhamnosus (Culturelle) 1 cap BID PO Last administered on 04/06/19 08:42; Start 04/03/19 at 21:00 Meropenem 500 mg/ Sodium Chloride 50 ml @ 100 mls/hr Q6HRS IV Last administered on 04/06/19 05:34; Start 04/03/19 at 18:00 Linezolid (Zyvox) 600 mg BID PO ; Start 04/03/19 at 18:00; Stop 04/03/19 at 18:00; Status DC Vancomycin HCl 1 gm/Sodium Chloride 250 ml @ 250 mls/hr Q12H IV ; Start 04/03/19 at 17:15; Status UNV Vancomycin HCl 2 gm/Sodium Chloride 500 ml @ 250 mls/hr 1X ONCE IV Last ad ministered on 04/03/19 19:08; Start 04/03/19 at 18:00; Stop 04/03/19 at 19:59; Status DC Vancomycin HCl (Vanco Per Pharmacy) 1 each PRN DAILY PRN MC SEE COMMENTS Last administered on 04/06/19 09:50; Start 04/03/19 at 17:30 Doxycycline Hyclate (Vibra-Tab) 100 mg BID PO Last administered on 04/06/19 08:43; Start 04/03/19 at 21:00 Vancomycin HCl 1.25 gm/Sodium Chloride 250 ml @ 167 mls/hr Q12H IV Last administered on 04/04/19 19:58; Start 04/04/19 at 07:00; Stop 04/05/19 at 08:16; Status DC Vancomycin HCl (Vancomycin Trough Level) 1 each 1X ONCE MC Last administered on 04/05/19 06:30; Start 04/05/19 at 06:30; Stop 04/05/19 at 06:31; Status DC Vancomycin HCl 1 gm/Sodium Chloride 250 ml @ 250 mls/hr Q8H IV Last administered on 04/06/19at 10:11; Start 04/05/19 at 08:30 Vancomycin HCl (Vancomycin Trough Level) 1 each 1X ONCE MC Last administered on 04/06/19at 08:00; Start 04/06/19 at 08:00; Stop 04/06/19 at 08:01; Status DC Active Scripts Active Zofran Odt (Ondansetron) 4 Mg Tab.rapdis 1 Tab SL Q8HRS Reported Clonazepam 1 Mg Tablet 1 Tab PO TID Zoloft (Sertraline Hcl) 50 Mg Tablet 1 Tab PO DAILY Vitals/I & O Vital Sign - Last 24 Hours 04/05/19 04/05/19 04/05/19 04/05/19 12:45 15:00 19:00 19:55 Temp 97.9 98.5 97.9 98.5 Pulse 83 88 82 Resp 20 16 18 B/P (MAP) 131/95 (107) 131/83 (99) 135/81 (99) Pulse Ox 96 97 95 O2 Delivery Room Air Room Air Room Air Room Air 04/05/19 04/06/19 04/06/19 04/06/19 23:00 01:40 02:40 03:00 Temp 98.3 97.8 98.3 97.8 Pulse 91 66 Resp 18 18 B/P (MAP) 128/85 (99) 126/78 (94) Pulse Ox 93 95 O2 Delivery Room Air Room Air Room Air Room Air 04/06/19 04/06/19 07:00 08:00 Temp 97.7 97.7 Pulse 77 Resp 17 B/P (MAP) 138/95 (109) Pulse Ox 96 O2 Delivery Room Air Room Air Intake and Output 04/05/19 04/05/19 04/06/19 15:00 23:00 07:00 Intake Total 530 ml Output Total 600 ml 1400 ml 1100 ml Balance -70 ml -1400 ml -1100 ml DM TAYLOR MD April 06, 2019 10:15
[2019-04-06 11:00] VITALS: BP 140/88
[2019-04-06] MEDS: NICOTINE 21MG PATCH. TD PRN (12:48)
--- NOTE | 2019-04-06 13:32 | NUR ---
SW following. SW contacted [facility] for inpatient transfer, spoke with Marialuisa. Pt information and face sheet faxed to [facility] (ph: [phone], fax: [phone]). RN notified.
[2019-04-06] MEDS ORDERED: GADOTERATE 7.5 MMOL/15ML VIAL. IVP ONE (14:00)
--- NOTE | 2019-04-06 14:52 | RAD ---
EXAMINATION: Magnetic resonance imaging (MRI) of the brain and brainstem without and with contrast 04/06/2019 9:27 AM HISTORY: Eye swelling TECHNIQUE: Multiplanar multi-weighted MRI of the brain and brainstem was performed without and with intravenous contrast using the general brain protocol. Contrast information: Gadolinium based contrast COMPARISON: CT head and orbits April 05, 2019 FINDINGS: There is right periorbital subcutaneous edema extending to the lateral malar soft tissues and right zygomatic region. There is no intraorbital extension. Orbits are normal in appearance. No intraconal or extraconal mass is identified. Suspicious enhancement is noted. The superior sagittal sinus demonstrates normal venous flow. The corpus callosum is normal in shape and signal intensity. The posterior fossa is unremarkable. The pituitary and sella are normal. The brainstem and craniocervical junction are unremarkable. Diffusion weighted images reveal no hyperintensities to suggest acute cerebral infarction. The susceptibility weighted sequences reveal no evidence of acute or chronic hemorrhage. The ventricles are normal in size and position without evidence of hydrocephalus. There are no areas of abnormal contrast enhancement. The paranasal sinuses are normal. The visualized portions of the mastoids are unremarkable. Normal flow voids are demonstrated in the carotid arteries and basilar artery. IMPRESSION: 1. No evidence for acute or subacute ischemia. 2. Right periorbital cellulitis without orbital extension. Electronically signed by: Concetta Scott MD (04/06/2019 2:49 PM) [id number]
[2019-04-06 15:00] VITALS: BP 133/81
[2019-04-06] MEDS ORDERED: diphenhydrAMINE HCL 25 MG CAPSULE PO PRN (18:30)
[2019-04-06 19:00] VITALS: BP 120/73
[2019-04-06 19:33] LABS: AMPHETAMINE/METHAMPHETAMINE NEG (NEG); BARBITURATES NEG (NEG); BENZODIAZEPINES NEG (NEG); CANNABINOIDS NEG (NEG); COCAINE NEG (NEG); METHADONE NEG (NEG); OPIATES NEG (NEG); PHENCYCLIDINE NEG (NEG)
[2019-04-06] MEDS: ENOXAPARIN 40 MG/0.4 ML SYRINGE. SQ SCH (20:32)
[2019-04-06 22:10] LABS: ROCK MTN SF IGG Negative (Negative)
[2019-04-06 23:00] VITALS: BP 119/70
[2019-04-07] MEDS: MEROPENEM 500 MG in IV NORMAL SALINE 50ML 50 ML IV SCH ×2 (00:59→05:43)
[2019-04-07] MEDS: VANCOMYCIN 1 GM in IV NORMAL SALINE 250ML 250 ML IV SCH (01:01)
[2019-04-07 03:00] VITALS: BP 124/78
[2019-04-07 04:43] LABS: BASO % 0 % (0-3); EOS # 0.4 x10^3/uL (0.0-0.7); EOS % 5 % (0-3); HEMATOCRIT 38.5 % (36.0-47.0); HEMOGLOBIN 12.9 g/dL (12.0-15.5); LYMPH % 39 % (24-48); MEAN CORPUSCULAR HEMOGLOBIN 29 pg (25-35); MEAN CORPUSCULAR HGB CONC 34 g/dL (31-37); MEAN CORPUSCULAR VOLUME 87 fL (79-100); MONO # 0.4 x10^3/uL (0.0-1.1); MONO % 6 % (0-9); NEUT # 3.8 x10^3uL (1.8-7.7); NEUT % 49 % (31-73); PLATELET COUNT 187 x10^3/uL (140-400); RED CELL DISTRIBUTION WIDTH 12.9 % (11.5-14.5); WHITE BLOOD COUNT 7.7 x10^3/uL (4.0-11.0)
[2019-04-07 05:03] LABS: ALBUMIN 3.3 g/dL (3.4-5.0); CALCIUM 8.9 mg/dL (8.5-10.1); CREATININE 0.7 mg/dL (0.6-1.0); GFR 90.9; POTASSIUM 4.1 mmol/L (3.5-5.1); TOTAL BILIRUBIN 0.3 mg/dL (0.2-1.0); TOTAL PROTEIN 6.5 g/dL (6.4-8.2)
[2019-04-07] MEDS: ACYCLOVIR SODIUM 500 MG in IV DEXTROSE 5% 100ML 100 ML IV SCH ×2 (05:43→14:00)
[2019-04-07 07:00] VITALS: BP 108/70
--- NOTE | 2019-04-07 07:46 | PDOC ---
Infectious Disease Note Subjective: Subjective Swelling ,pain,drainage from rt eye is improving slowly still cont to have blurred vision rash persists but not worsening no f/c/n/v/headache D/W RN ROS: ROS Negative except for above. Vital Signs: Vital Signs Vital Signs Date Time Temp Pulse Resp B/P (MAP) Pulse Ox O2 Delivery O2 Flow Rate FiO2 04/07/19 03:00 98.1 76 16 124/78 (93) 95 Room Air 98.1 Physical Exam: PHYSICAL EXAM General: Alert, Oriented X3, Cooperative, Heent : Rt eye able to open some today, unable to examine swelling,erythema,tenderness of the rt periorbital area and eyelids, lt eye ok , rash over the rt frontal area, church and eyelid not worsened,latter improving Neck supple no tenderness, Heart: Regular rate, Normal S1, Normal S2 Lungs: Clear Abdomen: Normal bowel sounds, Soft Extremities: No clubbing Skin: No rashes, No breakdown, Other (right frontal region rash with facial nerve distribution) Medications: Inpatient Meds: Current Medications Medications (Trade) Dose Ordered Sig/Nahum Start Time Stop Time Status Last Admin Dose Admin Acetaminophen (Tylenol) 650 mg PRN Q4HRS PRN 04/02/19 18:00 04/03/19 17:59 DC Acyclovir Sodium 500 mg/Dextrose 110 ml @ 110 mls/hr Q8HRS 04/03/19 11:00 04/07/19 05:43 110 MLS/HR Al Hydroxide/Mg Hydroxide (Mylanta Plus Xs) 30 ml PRN Q2HR PRN 04/02/19 22:45 Calcium Carbonate/ Glycine (Tums) 500 mg PRN AFTMEALHC PRN 04/02/19 22:45 Ciprofloxacin (Ciloxan Ophth) 1 drop 1X ONCE 04/02/19 22:30 04/02/19 22:31 DC 04/02/19 22:39 1 DROP Clindamycin Phosphate 50 ml @ 100 mls/hr Q8HRS 04/03/19 06:00 04/03/19 17:20 DC 04/03/19 14:00 100 MLS/HR Clonazepam (KlonoPIN) 1 mg TID 04/03/19 09:15 04/06/19 20:31 1 MG Diphenhydramine HCl (Benadryl) 25 mg PRN Q6HRS PRN 04/06/19 18:30 04/06/19 20:31 25 MG Doxycycline Hyclate (Vibra-Tab) 100 mg BID 04/03/19 21:00 04/06/19 20:30 100 MG Enoxaparin Sodium (Lovenox 40mg Syringe) 40 mg Q24H 04/02/19 22:30 04/06/19 20:32 40 MG Enoxaparin Sodium (Lovenox Per Pharmacy Prophylaxis Dosing) 1 each PRN DAILY PRN 04/02/19 22:30 04/04/19 12:11 DC Famotidine (Pepcid) 20 mg 1X ONCE 04/02/19 22:45 04/02/19 22:46 DC 04/02/19 22:51 20 MG Fentanyl Citrate (Fentanyl 2ml Vial) 50 mcg PRN Q2HR PRN 04/02/19 21:00 Fluorescein Sodium (Ful-Sophie) 1 strip 1X ONCE 04/02/19 16:30 04/02/19 16:31 DC 04/02/19 16:46 1 STRIP Gadoterate Meglumine (Dotarem) 15 ml 1X ONCE 04/06/19 14:00 04/06/19 14:01 DC 04/06/19 14:21 15 ML Lactobacillus Rhamnosus (Culturelle) 1 cap BID 04/03/19 21:00 04/06/19 20:30 1 CAP Linezolid (Zyvox) 600 mg BID 04/03/19 18:00 04/03/19 18:00 DC Meropenem 500 mg/ Sodium Chloride 50 ml @ 100 mls/hr Q6HRS 04/03/19 18:00 04/07/19 05:43 100 MLS/HR Methylprednisolone Sodium Succinate (SOLU-Medrol 125MG VIAL) 125 mg 1X ONCE 04/02/19 17:45 04/02/19 17:46 DC 04/02/19 17:58 125 MG Nicotine (Nicoderm Cq 21mg) 1 patch PRN DAILY PRN 04/02/19 21:30 04/06/19 12:48 1 PATCH Nicotine Polacrilex (Nicorette Gum) 1 each PRN Q1HR PRN 04/02/19 21:30 04/03/19 08:11 1 EACH Ondansetron HCl (Zofran) 4 mg PRN Q8HRS PRN 04/02/19 18:00 04/03/19 17:59 DC Oxycodone/ Acetaminophen (Percocet 5/325) 1 tab PRN Q4HRS PRN 04/02/19 21:00 04/06/19 01:40 1 TAB Potassium Chloride (Klor-Con) 20 meq [id number] 04/04/19 08:00 04/06/19 08:42 20 MEQ Sertraline HCl (Zoloft) 50 mg DAILY 04/03/19 09:15 04/06/19 08:42 50 MG Tetracaine HCl (Tetracaine) 1 drop 1X ONCE 04/02/19 16:30 04/02/19 16:31 DC 04/02/19 16:46 1 DROP Vancomycin HCl (Vanco Per Pharmacy) 1 each PRN DAILY PRN 04/03/19 17:30 04/06/19 09:50 1 EACH Vancomycin HCl (Vancomycin Trough Level) 1 each 1X ONCE 04/06/19 08:00 04/06/19 08:01 DC 04/06/19 08:00 1 EACH Vancomycin HCl 1.25 gm/Sodium Chloride 250 ml @ 167 mls/hr Q12H 04/04/19 07:00 04/05/19 08:16 DC 04/04/19 19:58 167 MLS/HR Vancomycin HCl 1 gm/Sodium Chloride 250 ml @ 250 mls/hr Q8H 04/05/19 08:30 04/07/19 01:01 250 MLS/HR Vancomycin HCl 2 gm/Sodium Chloride 500 ml @ 250 mls/hr 1X ONCE 04/03/19 18:00 04/03/19 19:59 DC 04/03/19 19:08 250 MLS/HR Labs: Lab Laboratory Tests Test 04/06/19 08:15 04/06/19 10:00 04/06/19 19:10 04/07/19 03:40 Vancomycin Level Trough 12.4 mcg/mL (10.0-20.0) Vancomycin Last Dose Date 04/06/19 Vancomycin Last Dose Time 0030 Nasal Screen MRSA (PCR) Positive (Negative) Urine Opiates Screen Neg (NEG) Urine Methadone Screen Neg (NEG) Urine Barbiturates Neg (NEG) Urine Phencyclidine Screen Neg (NEG) Urine Amphetamine/Methamphetamine Neg (NEG) Urine Benzodiazepines Screen Neg (NEG) Urine Cocaine Screen Neg (NEG) Urine Cannabinoids Screen Neg (NEG) Urine Ethyl Alcohol Neg (NEG) White Blood Count 7.7 x10^3/uL (4.0-11.0) Red Blood Count 4.40 x10^6/uL (3.50-5.40) Hemoglobin 12.9 g/dL (12.0-15.5) Hematocrit 38.5 % (36.0-47.0) Mean Corpuscular Volume 87 fL (79-100) Mean Corpuscular Hemoglobin 29 pg (25-35) Mean Corpuscular Hemoglobin Concent 34 g/dL (31-37) Red Cell Distribution Width 12.9 % (11.5-14.5) Platelet Count 187 x10^3/uL (140-400) Neutrophils (%) (Auto) 49 % (31-73) Lymphocytes (%) (Auto) 39 % (24-48) Monocytes (%) (Auto) 6 % (0-9) Eosinophils (%) (Auto) 5 % (0-3) Basophils (%) (Auto) 0 % (0-3) Neutrophils # (Auto) 3.8 x10^3uL (1.8-7.7) Lymphocytes # (Auto) 3.0 x10^3/uL (1.0-4.8) Monocytes # (Auto) 0.4 x10^3/uL (0.0-1.1) Eosinophils # (Auto) 0.4 x10^3/uL (0.0-0.7) Basophils # (Auto) 0.0 x10^3/uL (0.0-0.2) Sodium Level 140 mmol/L (136-145) Potassium Level 4.1 mmol/L (3.5-5.1) Chloride Level 104 mmol/L (98-107) Carbon Dioxide Level 26 mmol/L (21-32) Anion Gap 10 (6-14) Blood Urea Nitrogen 11 mg/dL (7-20) Creatinine 0.7 mg/dL (0.6-1.0) Estimated GFR (Cockcroft-Gault) 90.9 BUN/Creatinine Ratio 16 (6-20) Glucose Level 96 mg/dL (70-99) Calcium Level 8.9 mg/dL (8.5-10.1) Total Bilirubin 0.3 mg/dL (0.2-1.0) Aspartate Amino Transf (AST/SGOT) 14 U/L (15-37) Alanine Aminotransferase (ALT/SGPT) 16 U/L (14-59) Alkaline Phosphatase 61 U/L (46-116) Total Protein 6.5 g/dL (6.4-8.2) Albumin 3.3 g/dL (3.4-5.0) Albumin/Globulin Ratio 1.0 (1.0-1.7) Micro BC neg CT orbit and head noted MRI brain pending Objective: Assessment: Severe RT Jannette-orbital cellulitis etiology likely herpes zoster CT head /orbits shows Right periorbital cellulitis without orbital extension. 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 h/o IVDU and promiscuity, HIV,Hepatitis ,RPR, gono/chlam negative h/o abnormal mammogram. Lost to follow-up Homelessness Anxiety Plan: Plan of Care Continue acyclovir , cont doxycycline DC meropenem and IV vanc DC Cipro gtts Observe closely Monitor renal function closely cont doxycycline, Ehrlichia igm igg pending Local eye care f/u infectious disease serologies BC neg so far Monitor labs/temp /cult Supportive care Difficult situation as opthalmology service not available Pt not accepted for transfer to [facility] per staff Will Need mammogram and f/u for breast abn as outpt D/W Nursing GILLES SENIOR MD April 07, 2019 07:46
--- NOTE | 2019-04-07 09:12 | NUR ---
SW following. [facility] denied inpatient transfer late yesterday stating there is an child care teacher associated with [facility]. PAT team met with pt for mental health, drug use/ abuse and homelessness. Per Eric, pt is not homeless, is working for the [facility] and will go there when released from the hospital. Pt had mental health services through [facility] where she lived prior. Eric advised pt follow up with a clinic wherever she moves to with the [facility] to continue the mental health meds pt has been started on here at [facility]. Pt denied any further needs from Eric/ [facility] team. SW awaiting further plan for discharge planning.
--- NOTE | 2019-04-07 09:32 | NUR ---
IP: Pt is mrsa screen + requiring contact precautions as well as possible shingles in eye.
--- NOTE | 2019-04-07 09:41 | PDOC ---
PROGRESS NOTES History of Present Illness History of Present Illness Assessment/Plan Assessment/Plan periorbital cellulitis, RIGHT discomfort over the rt eyelid, rash going up the forehead now painful no f/c/n/v/ rt eye cannot open the eye 04/04, 04/05/ ,04/06 Right periorbital cellulitis without orbital extension. 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 FOR OPTH CONSULT iv zovirax UDS repeat Right periorbital cellulitis without orbital extension.ON mri head Pt is at risk of loosing her Rt eye without further evaluation await transfer to [facility] or [facility] DECLINED BY BOTH 42 MIN PT EXAM, CHART REVIEW, > 50% OF TIME SPENT WITH EXAM, CHART REVIEW, PT CARE COORDINATION Vitals Vitals Vital Signs Date Time Temp Pulse Resp B/P (MAP) Pulse Ox O2 Delivery O2 Flow Rate FiO2 04/07/19 07:00 96.8 84 16 108/70 (83) 96 Room Air 96.8 Physical Exam Physical Exam General: Alert, Oriented X3, Cooperative, Heent : Rt eye able to open some today, unable to examine swelling,erythema,tenderness of the rt periorbital area and eyelids, lt eye ok , rash over the rt frontal area, druze and eyelid not worsened,latter improving Neck supple no tenderness, Heart: Regular rate, Normal S1, Normal S2 Lungs: Clear Abdomen: Normal bowel sounds, Soft Extremities: No clubbing Skin: No rashes, No breakdown, Other (right frontal region rash with facial nerve distribution) General: Alert, Oriented X3, Cooperative, mild distress, Other (CANNOT OPEN RIGHT EYELID) Heart: Regular rate, Normal S1, Normal S2, No murmurs Lungs: Clear Abdomen: Normal bowel sounds, Soft, No hepatosplenomegaly Extremities: No clubbing, No cyanosis Skin: No rashes, No breakdown, Other (right frontal region rash with facial nerve distribution) Labs LABS EXAMINATION: Magnetic resonance imaging (MRI) of the brain and brainstem without and with contrast 04/06/2019 9:27 AM HISTORY: Eye swelling TECHNIQUE: Multiplanar multi-weighted MRI of the brain and brainstem was performed without and with intravenous contrast using the general brain protocol. Contrast information: Gadolinium based contrast COMPARISON: CT head and orbits April 05, 2019 FINDINGS: There is right periorbital subcutaneous edema extending to the lateral malar soft tissues and right zygomatic region. There is no intraorbital extension. Orbits are normal in appearance. No intraconal or extraconal mass is identified. Suspicious enhancement is noted. The superior sagittal sinus demonstrates normal venous flow. The corpus callosum is normal in shape and signal intensity. The posterior fossa is unremarkable. The pituitary and sella are normal. The brainstem and craniocervical junction are unremarkable. Diffusion weighted images reveal no hyperintensities to suggest acute cerebral infarction. The susceptibility weighted sequences reveal no evidence of acute or chronic hemorrhage. The ventricles are normal in size and position without evidence of hydrocephalus. There are no areas of abnormal contrast enhancement. The paranasal sinuses are normal. The visualized portions of the mastoids are unremarkable. Normal flow voids are demonstrated in the carotid arteries and basilar artery. IMPRESSION: 1. No evidence for acute or subacute ischemia. 2. Right periorbital cellulitis without orbital extension. Electronically signed by: Juma Scott MD (04/06/2019 2:49 PM) Laboratory Tests Test 04/06/19 10:00 04/06/19 19:10 04/07/19 03:40 Nasal Screen MRSA (PCR) Positive (Negative) Urine Opiates Screen Neg (NEG) Urine Methadone Screen Neg (NEG) Urine Barbiturates Neg (NEG) Urine Phencyclidine Screen Neg (NEG) Urine Amphetamine/Methamphetamine Neg (NEG) Urine Benzodiazepines Screen Neg (NEG) Urine Cocaine Screen Neg (NEG) Urine Cannabinoids Screen Neg (NEG) Urine Ethyl Alcohol Neg (NEG) White Blood Count 7.7 x10^3/uL (4.0-11.0) Red Blood Count 4.40 x10^6/uL (3.50-5.40) Hemoglobin 12.9 g/dL (12.0-15.5) Hematocrit 38.5 % (36.0-47.0) Mean Corpuscular Volume 87 fL (79-100) Mean Corpuscular Hemoglobin 29 pg (25-35) Mean Corpuscular Hemoglobin Concent 34 g/dL (31-37) Red Cell Distribution Width 12.9 % (11.5-14.5) Platelet Count 187 x10^3/uL (140-400) Neutrophils (%) (Auto) 49 % (31-73) Lymphocytes (%) (Auto) 39 % (24-48) Monocytes (%) (Auto) 6 % (0-9) Eosinophils (%) (Auto) 5 % (0-3) Basophils (%) (Auto) 0 % (0-3) Neutrophils # (Auto) 3.8 x10^3uL (1.8-7.7) Lymphocytes # (Auto) 3.0 x10^3/uL (1.0-4.8) Monocytes # (Auto) 0.4 x10^3/uL (0.0-1.1) Eosinophils # (Auto) 0.4 x10^3/uL (0.0-0.7) Basophils # (Auto) 0.0 x10^3/uL (0.0-0.2) Sodium Level 140 mmol/L (136-145) Potassium Level 4.1 mmol/L (3.5-5.1) Chloride Level 104 mmol/L (98-107) Carbon Dioxide Level 26 mmol/L (21-32) Anion Gap 10 (6-14) Blood Urea Nitrogen 11 mg/dL (7-20) Creatinine 0.7 mg/dL (0.6-1.0) Estimated GFR (Cockcroft-Gault) 90.9 BUN/Creatinine Ratio 16 (6-20) Glucose Level 96 mg/dL (70-99) Calcium Level 8.9 mg/dL (8.5-10.1) Total Bilirubin 0.3 mg/dL (0.2-1.0) Aspartate Amino Transf (AST/SGOT) 14 U/L (15-37) Alanine Aminotransferase (ALT/SGPT) 16 U/L (14-59) Alkaline Phosphatase 61 U/L (46-116) Total Protein 6.5 g/dL (6.4-8.2) Albumin 3.3 g/dL (3.4-5.0) Albumin/Globulin Ratio 1.0 (1.0-1.7) Assessment and Plan Assessmemt and Plan Problems Medical Problems: (1) Cellulitis Status: Acute HISTORY: Eye swelling TECHNIQUE: Multiplanar multi-weighted MRI of the brain and brainstem was performed without and with intravenous contrast using the general brain protocol. Contrast information: Gadolinium based contrast COMPARISON: CT head and orbits April 05, 2019 FINDINGS: There is right periorbital subcutaneous edema extending to the lateral malar soft tissues and right zygomatic region. There is no intraorbital extension. Orbits are normal in appearance. No intraconal or extraconal mass is identified. Suspicious enhancement is noted. The superior sagittal sinus demonstrates normal venous flow. The corpus callosum is normal in shape and signal intensity. The posterior fossa is unremarkable. The pituitary and sella are normal. The brainstem and craniocervical junction are unremarkable. Diffusion weighted images reveal no hyperintensities to suggest acute cerebral infarction. The susceptibility weighted sequences reveal no evidence of acute or chronic hemorrhage. The ventricles are normal in size and position without evidence of hydrocephalus. There are no areas of abnormal contrast enhancement. The paranasal sinuses are normal. The visualized portions of the mastoids are unremarkable. Normal flow voids are demonstrated in the carotid arteries and basilar artery. IMPRESSION: 1. No evidence for acute or subacute ischemia. 2. Right periorbital cellulitis without orbital extension. Electronically signed by: Juma Scott MD (04/06/2019 2:49 PM) [id number] DICTATED and SIGNED BY: JUMA SCOTT MD DATE: 04/06/19 1447 Comment Review of Relevant I have reviewed the following items kirstie (where applicable) has been applied. Labs Laboratory Tests Test 04/06/19 08:15 04/06/19 10:00 04/06/19 19:10 04/07/19 03:40 Vancomycin Level Trough 12.4 mcg/mL (10.0-20.0) Vancomycin Last Dose Date 04/06/19 Vancomycin Last Dose Time 0030 Nasal Screen MRSA (PCR) Positive (Negative) Urine Opiates Screen Neg (NEG) Urine Methadone Screen Neg (NEG) Urine Barbiturates Neg (NEG) Urine Phencyclidine Screen Neg (NEG) Urine Amphetamine/Methamphetamine Neg (NEG) Urine Benzodiazepines Screen Neg (NEG) Urine Cocaine Screen Neg (NEG) Urine Cannabinoids Screen Neg (NEG) Urine Ethyl Alcohol Neg (NEG) White Blood Count 7.7 x10^3/uL (4.0-11.0) Red Blood Count 4.40 x10^6/uL (3.50-5.40) Hemoglobin 12.9 g/dL (12.0-15.5) Hematocrit 38.5 % (36.0-47.0) Mean Corpuscular Volume 87 fL (79-100) Mean Corpuscular Hemoglobin 29 pg (25-35) Mean Corpuscular Hemoglobin Concent 34 g/dL (31-37) Red Cell Distribution Width 12.9 % (11.5-14.5) Platelet Count 187 x10^3/uL (140-400) Neutrophils (%) (Auto) 49 % (31-73) Lymphocytes (%) (Auto) 39 % (24-48) Monocytes (%) (Auto) 6 % (0-9) Eosinophils (%) (Auto) 5 % (0-3) Basophils (%) (Auto) 0 % (0-3) Neutrophils # (Auto) 3.8 x10^3uL (1.8-7.7) Lymphocytes # (Auto) 3.0 x10^3/uL (1.0-4.8) Monocytes # (Auto) 0.4 x10^3/uL (0.0-1.1) Eosinophils # (Auto) 0.4 x10^3/uL (0.0-0.7) Basophils # (Auto) 0.0 x10^3/uL (0.0-0.2) Sodium Level 140 mmol/L (136-145) Potassium Level 4.1 mmol/L (3.5-5.1) Chloride Level 104 mmol/L (98-107) Carbon Dioxide Level 26 mmol/L (21-32) Anion Gap 10 (6-14) Blood Urea Nitrogen 11 mg/dL (7-20) Creatinine 0.7 mg/dL (0.6-1.0) Estimated GFR (Cockcroft-Gault) 90.9 BUN/Creatinine Ratio 16 (6-20) Glucose Level 96 mg/dL (70-99) Calcium Level 8.9 mg/dL (8.5-10.1) Total Bilirubin 0.3 mg/dL (0.2-1.0) Aspartate Amino Transf (AST/SGOT) 14 U/L (15-37) Alanine Aminotransferase (ALT/SGPT) 16 U/L (14-59) Alkaline Phosphatase 61 U/L (46-116) Total Protein 6.5 g/dL (6.4-8.2) Albumin 3.3 g/dL (3.4-5.0) Albumin/Globulin Ratio 1.0 (1.0-1.7) Laboratory Tests Test 04/06/19 10:00 04/06/19 19:10 04/07/19 03:40 Nasal Screen MRSA (PCR) Positive (Negative) Urine Opiates Screen Neg (NEG) Urine Methadone Screen Neg (NEG) Urine Barbiturates Neg (NEG) Urine Phencyclidine Screen Neg (NEG) Urine Amphetamine/Methamphetamine Neg (NEG) Urine Benzodiazepines Screen Neg (NEG) Urine Cocaine Screen Neg (NEG) Urine Cannabinoids Screen Neg (NEG) Urine Ethyl Alcohol Neg (NEG) White Blood Count 7.7 x10^3/uL (4.0-11.0) Red Blood Count 4.40 x10^6/uL (3.50-5.40) Hemoglobin 12.9 g/dL (12.0-15.5) Hematocrit 38.5 % (36.0-47.0) Mean Corpuscular Volume 87 fL (79-100) Mean Corpuscular Hemoglobin 29 pg (25-35) Mean Corpuscular Hemoglobin Concent 34 g/dL (31-37) Red Cell Distribution Width 12.9 % (11.5-14.5) Platelet Count 187 x10^3/uL (140-400) Neutrophils (%) (Auto) 49 % (31-73) Lymphocytes (%) (Auto) 39 % (24-48) Monocytes (%) (Auto) 6 % (0-9) Eosinophils (%) (Auto) 5 % (0-3) Basophils (%) (Auto) 0 % (0-3) Neutrophils # (Auto) 3.8 x10^3uL (1.8-7.7) Lymphocytes # (Auto) 3.0 x10^3/uL (1.0-4.8) Monocytes # (Auto) 0.4 x10^3/uL (0.0-1.1) Eosinophils # (Auto) 0.4 x10^3/uL (0.0-0.7) Basophils # (Auto) 0.0 x10^3/uL (0.0-0.2) Sodium Level 140 mmol/L (136-145) Potassium Level 4.1 mmol/L (3.5-5.1) Chloride Level 104 mmol/L (98-107) Carbon Dioxide Level 26 mmol/L (21-32) Anion Gap 10 (6-14) Blood Urea Nitrogen 11 mg/dL (7-20) Creatinine 0.7 mg/dL (0.6-1.0) Estimated GFR (Cockcroft-Gault) 90.9 BUN/Creatinine Ratio 16 (6-20) Glucose Level 96 mg/dL (70-99) Calcium Level 8.9 mg/dL (8.5-10.1) Total Bilirubin 0.3 mg/dL (0.2-1.0) Aspartate Amino Transf (AST/SGOT) 14 U/L (15-37) Alanine Aminotransferase (ALT/SGPT) 16 U/L (14-59) Alkaline Phosphatase 61 U/L (46-116) Total Protein 6.5 g/dL (6.4-8.2) Albumin 3.3 g/dL (3.4-5.0) Albumin/Globulin Ratio 1.0 (1.0-1.7) Microbiology 04/02/19 Blood Culture - Preliminary, Resulted NO GROWTH AFTER 4 DAYS Medications Current Medications Fluorescein Sodium (Ful-Sophie) 1 strip 1X ONCE OD Last administered on 04/02/19at 16:46; Start 04/02/19 at 16:30; Stop 04/02/19 at 16:31; Status DC Tetracaine HCl (Tetracaine) 1 drop 1X ONCE OD Last administered on 04/02/19at 16:46; Start 04/02/19 at 16:30; Stop 04/02/19 at 16:31; Status DC Clindamycin Phosphate 50 ml @ 100 mls/hr 1X ONCE IV Last administered on 04/02/19at 16:47; Start 04/02/19 at 16:30; Stop 04/02/19 at 16:59; Status DC Methylprednisolone Sodium Succinate (SOLU-Medrol 125MG VIAL) 125 mg 1X ONCE IV Last administered on 04/02/19at 17:58; Start 04/02/19 at 17:45; Stop 04/02/19 at 17:46; Status DC Ondansetron HCl (Zofran) 4 mg PRN Q8HRS PRN IV NAUSEA/VOMITING; Start 04/02/19 at 18:00; Stop 04/03/19 at 17:59; Status DC Acetaminophen (Tylenol) 650 mg PRN Q4HRS PRN PO FEVER; Start 04/02/19 at 18:00; Stop 04/03/19 at 17:59; Status DC Fentanyl Citrate (Fentanyl 2ml Vial) 50 mcg PRN Q2HR PRN IV PAIN; Start 04/02/19 at 21:00 Oxycodone/ Acetaminophen (Percocet 5/325) 1 tab PRN Q4HRS PRN PO PAIN Last administered on 04/06/19 01:40; Start 04/02/19 at 21:00 Nicotine (Nicoderm Cq 21mg) 1 patch PRN DAILY PRN TD SMOKING CESSATION Last administered on 04/06/19 12:48; Start 04/02/19 at 21:30 Nicotine Polacrilex (Nicorette Gum) 1 each PRN Q1HR PRN BC SMOKING CESSATION Last administered on 04/03/19 08:11; Start 04/02/19 at 21:30 Ciprofloxacin (Ciloxan Ophth) 1 drop QID OU Last administered on 04/06/19 08:43; Start 04/03/19 at 09:00; Stop 04/06/19 at 09:37; Status DC Ciprofloxacin (Ciloxan Ophth) 1 drop 1X ONCE OD Last administered on 04/02/19at 22:39; Start 04/02/19 at 22:30; Stop 04/02/19 at 22:31; Status DC Clindamycin Phosphate 50 ml @ 100 mls/hr Q8HRS IV Last administered on 04/03/19 14:00; Start 04/03/19 at 06:00; Stop 04/03/19 at 17:20; Status DC Enoxaparin Sodium (Lovenox Per Pharmacy Prophylaxis Dosing) 1 each PRN DAILY PRN MC SEE COMMENTS; Start 04/02/19 at 22:30; Stop 04/04/19 at 12:11; Status DC Calcium Carbonate/ Glycine (Tums) 500 mg PRN AFTMEALHC PRN PO INDIGESTION; Start 04/02/19 at 22:45 Al Hydroxide/Mg Hydroxide (Mylanta Plus Xs) 30 ml PRN Q2HR PRN PO HEARTBURN / GAS; Start 04/02/19 at 22:45 Famotidine (Pepcid) 20 mg BID PO Last administered on 04/06/19at 20:31; Start 04/03/19 at 09:00 Famotidine (Pepcid) 20 mg 1X ONCE PO Last administered on 04/02/19at 22:51; Start 04/02/19 at 22:45; Stop 04/02/19 at 22:46; Status DC Enoxaparin Sodium (Lovenox 40mg Syringe) 40 mg Q24H SQ Last administered on 04/06/19 20:32; Start 04/02/19 at 22:30 Clonazepam (KlonoPIN) 1 mg TID PO Last administered on 04/06/19 20:31; Start 04/03/19 at 09:15 Sertraline HCl (Zoloft) 50 mg DAILY PO Last administered on 04/06/19 08:42; Start 04/03/19 at 09:15 Acyclovir Sodium 500 mg/Dextrose 110 ml @ 110 mls/hr Q8HRS IV Last administered on 04/07/19 05:43; Start 04/03/19 at 11:00 Potassium Chloride (Klor-Con) 40 meq 1X ONCE PO Last administered on 04/03/19 13:01; Start 04/03/19 at 11:00; Stop 04/03/19 at 11:01; Status DC Potassium Chloride (Klor-Con) 20 meq DAILYWBKFT PO Last administered on 04/06/19 t 08:42; Start 04/04/19 at 08:00 Lactobacillus Rhamnosus (Culturelle) 1 cap BID PO Last administered on 04/06/19 20:30; Start 04/03/19 at 21:00 Meropenem 500 mg/ Sodium Chloride 50 ml @ 100 mls/hr Q6HRS IV Last administered on 04/07/19 05:43; Start 04/03/19 at 18:00; Stop 04/07/19 at 08:53; Status DC Linezolid (Zyvox) 600 mg BID PO ; Start 04/03/19 at 18:00; Stop 04/03/19 at 18:00; Status DC Vancomycin HCl 1 gm/Sodium Chloride 250 ml @ 250 mls/hr Q12H IV ; Start 04/03/19 at 17:15; Status UNV Vancomycin HCl 2 gm/Sodium Chloride 500 ml @ 250 mls/hr 1X ONCE IV Last administered on 04/03/19 19:08; Start 04/03/19 at 18:00; Stop 04/03/19 at 19:59; Status DC Vancomycin HCl (Vanco Per Pharmacy) 1 each PRN DAILY PRN MC SEE COMMENTS Last administered on 04/06/19 09:50; Start 04/03/19 at 17:30; Stop 04/07/19 at 08:55; Status DC Doxycycline Hyclate (Vibra-Tab) 100 mg BID PO Last administered on 04/06/19 20:30; Start 04/03/19 at 21:00 Vancomycin HCl 1.25 gm/Sodium Chloride 250 ml @ 167 mls/hr Q12H IV Last administered on 04/04/19 19:58; Start 04/04/19 at 07:00; Stop 04/05/19 at 08:16; Status DC Vancomycin HCl (Vancomycin Trough Level) 1 each 1X ONCE MC Last administered on 04/05/19 06:30; Start 04/05/19 at 06:30; Stop 04/05/19 at 06:31; Status DC Vancomycin HCl 1 gm/Sodium Chloride 250 ml @ 250 mls/hr Q8H IV Last administered on 04/07/19 01:01; Start 04/05/19 at 08:30; Stop 04/07/19 at 08:53; Status DC Vancomycin HCl (Vancomycin Trough Level) 1 each 1X ONCE MC Last administered on 04/06/19 08:00; Start 04/06/19 at 08:00; Stop 04/06/19 at 08:01; Status DC Gadoterate Meglumine (Dotarem) 15 ml 1X ONCE IVP Last administered on 04/06/19at 14:21; Start 04/06/19 at 14:00; Stop 04/06/19 at 14:01; Status DC Diphenhydramine HCl (Benadryl) 25 mg PRN Q6HRS PRN PO ITCHING Last administered on 04/06/19at 20:31; Start 04/06/19 at 18:30 Active Scripts Active Zofran Odt (Ondansetron) 4 Mg Tab.rapdis 1 Tab SL Q8HRS Reported Clonazepam 1 Mg Tablet 1 Tab PO TID Zoloft (Sertraline Hcl) 50 Mg Tablet 1 Tab PO DAILY Vitals/I & O Vital Sign - Last 24 Hours 04/06/19 04/06/19 04/06/19 04/06/19 11:00 15:00 19:00 20:00 Temp 97.9 97.7 97.7 97.9 97.7 97.7 Pulse 74 77 86 Resp 17 17 16 B/P (MAP) 140/88 (105) 133/81 (98) 120/73 (89) Pulse Ox 96 97 96 O2 Delivery Room Air Room Air Room Air Room Air 04/06/19 04/07/19 04/07/19 23:00 03:00 07:00 Temp 97.7 98.1 96.8 97.7 98.1 96.8 Pulse 72 76 84 Resp 16 16 16 B/P (MAP) 119/70 (86) 124/78 (93) 108/70 (83) Pulse Ox 96 95 96 O2 Delivery Room Air Room Air Room Air Intake and Output 04/06/19 04/06/19 04/07/19 15:00 23:00 07:00 Intake Total 320 ml 400 ml 540 ml Balance 320 ml 400 ml 540 ml DM TAYLOR MD April 07, 2019 09:41
[2019-04-07] MEDS: POTASSIUM CHLORIDE 20 MEQ TABLET.ER. PO SCH (10:06)
[2019-04-07] MEDS: FAMOTIDINE 20 MG TABLET. PO SCH (10:07)
[2019-04-07] MEDS: clonazePAM 1 MG TABLET PO SCH ×2 (10:07→14:00)
[2019-04-07] MEDS: DOXYCYCLINE HYCLATE 100 MG TABLET PO SCH (10:07)
[2019-04-07] MEDS: SERTRALINE 50 MG TABLET. PO SCH (10:07)
[2019-04-07] MEDS: LACTOBACILLUS RHAMNOSUS GG 1 CAPSULE. PO SCH (10:11)
[2019-04-07 11:00] VITALS: BP 132/76
--- NOTE | 2019-04-07 14:24 | PDOC3 ---
Discharge Summary Date of Admission: April 02, 2019 Date of Discharge: April 07, 2019 Follow-Up: 1-2 days Admitting Diagnosis comment: discharge dx Assessment/Plan periorbital cellulitis, RIGHT discomfort over the rt eyelid, rash going up the forehead now painful no f/c/n/v/ rt eye cannot open the eye 04/04, 04/05/ ,8 Right periorbital cellulitis without orbital extension. tobaccoism, ILLICIT DRUG USE obese, BMI 31 cont current abx, add cipro OU, concern for zoster etiology Herpes Zoster ophthalmicus suspected ID CONSULT rec transfer to [facility] FOR OPTH CONSULT denied iv zovirax UDS repeat Right periorbital cellulitis without orbital extension.ON mri head Pt is at risk of loosing her Rt eye without further evaluation await transfer to [facility] or [facility] DECLINED BY BOTH 32 MIN PT EXAM d/c planning ama , CHART REVIEW, > 50% OF TIME SPENT WITH EXAM, CHART REVIEW, PT CARE COORDINATION Vitals Vitals Vital Signs Date Time Temp Pulse Resp B/P (MAP) Pulse Ox O2 Delivery O2 Flow Rate FiO2 04/07/19 07:00 96.8 84 16 108/70 (83) 96 Room Air 96.8 Physical Exam Physical Exam General: Alert, Oriented X3, Cooperative, wants to leave AMA TO GO TO WORK FOR HER JOB Heent : Rt eye able to open some today, unable to examine swelling,erythema,tenderness of the rt periorbital area and eyelids, lt eye ok , rash over the rt frontal area, 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,latter improving Neck supple no tenderness, Heart: Regular rate, Normal S1, Normal S2 Lungs: Clear Abdomen: Normal bowel sounds, Soft Extremities: No clubbing Skin: No rashes, No breakdown, Other (right frontal region rash with facial nerve distribution) General: Alert, Oriented X3, Cooperative, mild distress, Other (CANNOT OPEN RI GHT EYELID) Heart: Regular rate, Normal S1, Normal S2, No murmurs Lungs: Clear Abdomen: Normal bowel sounds, Soft, No hepatosplenomegaly Extremities: No clubbing, No cyanosis Skin: No rashes, No breakdown, Other (right frontal region rash with facial nerve distribution) Labs LABS EXAMINATION: Magnetic resonance imaging (MRI) of the brain and brainstem without and with contrast 04/06/2019 9:27 AM HISTORY: Eye swelling TECHNIQUE: Multiplanar multi-weighted MRI of the brain and brainstem was performed without and with intravenous contrast using the general brain protocol. Contrast information: Gadolinium based contrast COMPARISON: CT head and orbits April 05, 2019 FINDINGS: There is right periorbital subcutaneous edema extending to the lateral malar soft tissues and right zygomatic region. There is no intraorbital extension. Orbits are normal in appearance. No intraconal or extraconal mass is identified. Suspicious enhancement is noted. The superior sagittal sinus demonstrates normal venous flow. The corpus callosum is normal in shape and signal intensity. The posterior fossa is unremarkable. The pituitary and sella are normal. The brainstem and craniocervical junction are unremarkable. Diffusion weighted images reveal no hyperintensities to suggest acute cerebral infarction. The susceptibility weighted sequences reveal no evidence of acute or chronic hemorrhage. The ventricles are normal in size and position without evidence of hydrocephalus. There are no areas of abnormal contrast enhancement. The paranasal sinuses are normal. The visualized portions of the mastoids are unremarkable. Normal flow voids are demonstrated in the carotid arteries and basilar artery. IMPRESSION: 1. No evidence for acute or subacute ischemia. 2. Right periorbital cellulitis without orbital extension. FINAL DIAGNOSIS Problems Medical Problems: (1) Cellulitis Status: Acute Brief Hospital Course Ms. Alfonso is a 43 old [sex] who presented with [ ] Discharge Medications Current Medications Fluorescein Sodium (Ful-Sophie) 1 strip 1X ONCE OD Last administered on 04/02/19 16:46; Start 04/02/19 at 16:30; Stop 04/02/19 at 16:31; Status DC Tetracaine HCl (Tetracaine) 1 drop 1X ONCE OD Last administered on 04/02/19 16:46; Start 04/02/19 at 16:30; Stop 04/02/19 at 16:31; Status DC Clindamycin Phosphate 50 ml @ 100 mls/hr 1X ONCE IV Last administered on 04/02/19 16:47; Start 04/02/19 at 16:30; Stop 04/02/19 at 16:59; Status DC Methylprednisolone Sodium Succinate (SOLU-Medrol 125MG VIAL) 125 mg 1X ONCE IV Last administered on 04/02/19 17:58; Start 04/02/19 at 17:45; Stop 04/02/19 at 17:46; Status DC Ondansetron HCl (Zofran) 4 mg PRN Q8HRS PRN IV NAUSEA/VOMITING; Start 04/02/19 at 18:00; Stop 04/03/19 at 17:59; Status DC Acetaminophen (Tylenol) 650 mg PRN Q4HRS PRN PO FEVER; Start 04/02/19 at 18:00; Stop 04/03/19 at 17:59; Status DC Fentanyl Citrate (Fentanyl 2ml Vial) 50 mcg PRN Q2HR PRN IV PAIN; Start 04/02/19 at 21:00 Oxycodone/ Acetaminophen (Percocet 5/325) 1 tab PRN Q4HRS PRN PO PAIN Last administered on 04/06/19at 01:40; Start 04/02/19 at 21:00 Nicotine (Nicoderm Cq 21mg) 1 patch PRN DAILY PRN TD SMOKING CESSATION Last administered on 04/06/19at 12:48; Start 04/02/19 at 21:30 Nicotine Polacrilex (Nicorette Gum) 1 each PRN Q1HR PRN BC SMOKING CESSATION Last administered on 04/03/19at 08:11; Start 04/02/19 at 21:30 Ciprofloxacin (Ciloxan Ophth) 1 drop QID OU Last administered on 04/06/19at 08:43; Start 04/03/19 at 09:00; Stop 04/06/19 at 09:37; Status DC Ciprofloxacin (Ciloxan Ophth) 1 drop 1X ONCE OD Last administered on 04/02/19at 22:39; Start 04/02/19 at 22:30; Stop 04/02/19 at 22:31; Status DC Clindamycin Phosphate 50 ml @ 100 mls/hr Q8HRS IV Last administered on 04/03/19at 14:00; Start 04/03/19 at 06:00; Stop 04/03/19 at 17:20; Status DC Enoxaparin Sodium (Lovenox Per Pharmacy Prophylaxis Dosing) 1 each PRN DAILY PRN MC SEE COMMENTS; Start 04/02/19 at 22:30; Stop 04/04/19 at 12:11; Status DC Calcium Carbonate/ Glycine (Tums) 500 mg PRN AFTMEALHC PRN PO INDIGESTION; Start 04/02/19 at 22:45 Al Hydroxide/Mg Hydroxide (Mylanta Plus Xs) 30 ml PRN Q2HR PRN PO HEARTBURN / GAS; Start 04/02/19 at 22:45 Famotidine (Pepcid) 20 mg BID PO Last administered on 04/07/19 10:07; Start 04/03/19 at 09:00 Famotidine (Pepcid) 20 mg 1X ONCE PO Last administered on 04/02/19 22:51; Start 04/02/19 at 22:45; Stop 04/02/19 at 22:46; Status DC Enoxaparin Sodium (Lovenox 40mg Syringe) 40 mg Q24H SQ Last administered on 04/06/19 20:32; Start 04/02/19 at 22:30 Clonazepam (KlonoPIN) 1 mg TID PO Last administered on 04/07/19 10:07; Start 04/03/19 at 09:15 Sertraline HCl (Zoloft) 50 mg DAILY PO Last administered on 04/07/19 10:07; Start 04/03/19 at 09:15 Acyclovir Sodium 500 mg/Dextrose 110 ml @ 110 mls/hr Q8HRS IV Last administered on 04/07/19 05:43; Start 04/03/19 at 11:00 Potassium Chloride (Klor-Con) 40 meq 1X ONCE PO Last administered on 04/03/19 13:01; Start 04/03/19 at 11:00; Stop 04/03/19 at 11:01; Status DC Potassium Chloride (Klor-Con) 20 meq DAILYWBKFT PO Last administered on 04/07/19at 10:06; Start 04/04/19 at 08:00 Lactobacillus Rhamnosus (Culturelle) 1 cap BID PO Last administered on 04/07/19 10:11; Start 04/03/19 at 21:00 Meropenem 500 mg/ Sodium Chloride 50 ml @ 100 mls/hr Q6HRS IV Last administered on 04/07/19 05:43; Start 04/03/19 at 18:00; Stop 04/07/19 at 08:53; Status DC Linezolid (Zyvox) 600 mg BID PO ; Start 04/03/19 at 18:00; Stop 04/03/19 at 18:00; Status DC Vancomycin HCl 1 gm/Sodium Chloride 250 ml @ 250 mls/hr Q12H IV ; Start 04/03/19 at 17:15; Status UNV Vancomycin HCl 2 gm/Sodium Chloride 500 ml @ 250 mls/hr 1X ONCE IV Last administered on 04/03/19 19:08; Start 04/03/19 at 18:00; Stop 04/03/19 at 19:59; Status DC Vancomycin HCl (Vanco Per Pharmacy) 1 each PRN DAILY PRN MC SEE COMMENTS Last administered on 04/06/19at 09:50; Start 04/03/19 at 17:30; Stop 04/07/19 at 08:55; Status DC Doxycycline Hyclate (Vibra-Tab) 100 mg BID PO Last administered on 04/07/19at 10:07; Start 04/03/19 at 21:00 Vancomycin HCl 1.25 gm/Sodium Chloride 250 ml @ 167 mls/hr Q12H IV Last administered on 04/04/19at 19:58; Start 04/04/19 at 07:00; Stop 04/05/19 at 08:16; Status DC Vancomycin HCl (Vancomycin Trough Level) 1 each 1X ONCE MC Last administered on 04/05/19at 06:30; Start 04/05/19 at 06:30; Stop 04/05/19 at 06:31; Status DC Vancomycin HCl 1 gm/Sodium Chloride 250 ml @ 250 mls/hr Q8H IV Last administered on 04/07/19 01:01; Start 04/05/19 at 08:30; Stop 04/07/19 at 08:53; Status DC Vancomycin HCl (Vancomycin Trough Level) 1 each 1X ONCE MC Last administered on 04/06/19at 08:00; Start 04/06/19 at 08:00; Stop 04/06/19 at 08:01; Status DC Gadoterate Meglumine (Dotarem) 15 ml 1X ONCE IVP Last administered on 04/06/19at 14:21; Start 04/06/19 at 14:00; Stop 04/06/19 at 14:01; Status DC Diphenhydramine HCl (Benadryl) 25 mg PRN Q6HRS PRN PO ITCHING Last administered on 04/06/19at 20:31; Start 04/06/19 at 18:30 Active Scripts Active Zofran Odt (Ondansetron) 4 Mg Tab.rapdis 1 Tab SL Q8HRS Reported Clonazepam 1 Mg Tablet 1 Tab PO TID Zoloft (Sertraline Hcl) 50 Mg Tablet 1 Tab PO DAILY Vital Signs Vital Signs Date Time Temp Pulse Resp B/P (MAP) Pulse Ox O2 Delivery O2 Flow Rate FiO2 04/07/19 11:00 95.2 87 12 132/76 (94) 98 Room Air 95.2 Labs Laboratory Tests Test 04/06/19 08:15 04/06/19 10:00 04/06/19 19:10 04/07/19 03:40 Vancomycin Level Trough 12.4 mcg/mL (10.0-20.0) Vancomycin Last Dose Date 04/06/19 Vancomycin Last Dose Time 0030 Nasal Screen MRSA (PCR) Positive (Negative) Urine Opiates Screen Neg (NEG) Urine Methadone Screen Neg (NEG) Urine Barbiturates Neg (NEG) Urine Phencyclidine Screen Neg (NEG) Urine Amphetamine/Methamphetamine Neg (NEG) Urine Benzodiazepines Screen Neg (NEG) Urine Cocaine Screen Neg (NEG) Urine Cannabinoids Screen Neg (NEG) Urine Ethyl Alcohol Neg (NEG) White Blood Count 7.7 x10^3/uL (4.0-11.0) Red Blood Count 4.40 x10^6/uL (3.50-5.40) Hemoglobin 12.9 g/dL (12.0-15.5) Hematocrit 38.5 % (36.0-47.0) Mean Corpuscular Volume 87 fL (79-100) Mean Corpuscular Hemoglobin 29 pg (25-35) Mean Corpuscular Hemoglobin Concent 34 g/dL (31-37) Red Cell Distribution Width 12.9 % (11.5-14.5) Platelet Count 187 x10^3/uL (140-400) Neutrophils (%) (Auto) 49 % (31-73) Lymphocytes (%) (Auto) 39 % (24-48) Monocytes (%) (Auto) 6 % (0-9) Eosinophils (%) (Auto) 5 % (0-3) Basophils (%) (Auto) 0 % (0-3) Neutrophils # (Auto) 3.8 x10^3uL (1.8-7.7) Lymphocytes # (Auto) 3.0 x10^3/uL (1.0-4.8) Monocytes # (Auto) 0.4 x10^3/uL (0.0-1.1) Eosinophils # (Auto) 0.4 x10^3/uL (0.0-0.7) Basophils # (Auto) 0.0 x10^3/uL (0.0-0.2) Sodium Level 140 mmol/L (136-145) Potassium Level 4.1 mmol/L (3.5-5.1) Chloride Level 104 mmol/L (98-107) Carbon Dioxide Level 26 mmol/L (21-32) Anion Gap 10 (6-14) Blood Urea Nitrogen 11 mg/dL (7-20) Creatinine 0.7 mg/dL (0.6-1.0) Estimated GFR (Cockcroft-Gault) 90.9 BUN/Creatinine Ratio 16 (6-20) Glucose Level 96 mg/dL (70-99) Calcium Level 8.9 mg/dL (8.5-10.1) Total Bilirubin 0.3 mg/dL (0.2-1.0) Aspartate Amino Transf (AST/SGOT) 14 U/L (15-37) Alanine Aminotransferase (ALT/SGPT) 16 U/L (14-59) Alkaline Phosphatase 61 U/L (46-116) Total Protein 6.5 g/dL (6.4-8.2) Albumin 3.3 g/dL (3.4-5.0) Albumin/Globulin Ratio 1.0 (1.0-1.7) Laboratory Tests Test 04/06/19 19:10 04/07/19 03:40 Urine Opiates Screen Neg (NEG) Urine Methadone Screen Neg (NEG) Urine Barbiturates Neg (NEG) Urine Phencyclidine Screen Neg (NEG) Urine Amphetamine/Methamphetamine Neg (NEG) Urine Benzodiazepines Screen Neg (NEG) Urine Cocaine Screen Neg (NEG) Urine Cannabinoids Screen Neg (NEG) Urine Ethyl Alcohol Neg (NEG) White Blood Count 7.7 x10^3/uL (4.0-11.0) Red Blood Count 4.40 x10^6/uL (3.50-5.40) Hemoglobin 12.9 g/dL (12.0-15.5) Hematocrit 38.5 % (36.0-47.0) Mean Corpuscular Volume 87 fL (79-100) Mean Corpuscular Hemoglobin 29 pg (25-35) Mean Corpuscular Hemoglobin Concent 34 g/dL (31-37) Red Cell Distribution Width 12.9 % (11.5-14.5) Platelet Count 187 x10^3/uL (140-400) Neutrophils (%) (Auto) 49 % (31-73) Lymphocytes (%) (Auto) 39 % (24-48) Monocytes (%) (Auto) 6 % (0-9) Eosinophils (%) (Auto) 5 % (0-3) Basophils (%) (Auto) 0 % (0-3) Neutrophils # (Auto) 3.8 x10^3uL (1.8-7.7) Lymphocytes # (Auto) 3.0 x10^3/uL (1.0-4.8) Monocytes # (Auto) 0.4 x10^3/uL (0.0-1.1) Eosinophils # (Auto) 0.4 x10^3/uL (0.0-0.7) Basophils # (Auto) 0.0 x10^3/uL (0.0-0.2) Sodium Level 140 mmol/L (136-145) Potassium Level 4.1 mmol/L (3.5-5.1) Chloride Level 104 mmol/L (98-107) Carbon Dioxide Level 26 mmol/L (21-32) Anion Gap 10 (6-14) Blood Urea Nitrogen 11 mg/dL (7-20) Creatinine 0.7 mg/dL (0.6-1.0) Estimated GFR (Cockcroft-Gault) 90.9 BUN/Creatinine Ratio 16 (6-20) Glucose Level 96 mg/dL (70-99) Calcium Level 8.9 mg/dL (8.5-10.1) Total Bilirubin 0.3 mg/dL (0.2-1.0) Aspartate Amino Transf (AST/SGOT) 14 U/L (15-37) Alanine Aminotransferase (ALT/SGPT) 16 U/L (14-59) Alkaline Phosphatase 61 U/L (46-116) Total Protein 6.5 g/dL (6.4-8.2) Albumin 3.3 g/dL (3.4-5.0) Albumin/Globulin Ratio 1.0 (1.0-1.7) Allergies Allergies Coded Allergies Type Severity Reaction Last Updated Verified Penicillins Allergy Severe "HEART STOPPED" 04/06/19 Yes I S O L A T I O N *CONTACT* Allergy Unknown 04/07/19 Yes Disposition/Orders: D/C to Home Patient Instructions D/C PLANNING 32 MIN AMA STATUS DM TAYLOR MD April 07, 2019 14:24
[2019-04-07] MEDS ORDERED: ACYC800T PO (14:27)
[2019-04-07] MEDS ORDERED: POTA20TA4 PO (14:27)
[2019-04-07] MEDS ORDERED: DOXY100T PO (14:27)
--- NOTE | 2019-04-07 14:30 | DISCH ---
DISCHARGE INSTRUCTIONS Condition on Discharge Condition on Discharge: Guarded Activity After Discharge Activity Instructions for Disc: Activity as tolerated Driving Instructions after Dis: Do not drive Diet after Discharge Diet after Discharge: Regular Contacting the DR. after DC Call your doctor for: If your condition worsens DM TAYLOR MD April 07, 2019 14:30
--- NOTE | 2019-04-07 14:35 | NUR ---
Pt left against medical advice at 1430. Pt requested a cab coupon but did not want to wait for Nurse Director Of Dementia Operations to bring it. Pt stated "I have to leave to make it to the bank, need to take crowley out for some bills I have, has to happen before 3 pm." Pt was explained by nurse and Dr. Ashley that leaving would be against medical advice. Pt signed AMA paper, received prescriptions, and RN took IV out before client left the unit.
[2019-04-08 13:19] LABS: EHRICHIA(HGE)AB IGG Negative (Neg:<1:64); EHRLICHIA(HME)AB Negative (Neg:<1:20)
== END 2019-04-07 14:30 | disposition left against medical advice (07) | DRG 603 ==
LOC: ER 15:31 → 4 NORTH 17:37
PROVIDERS: ADMIT Internal Medicine; ATTEND Internal Medicine
DX: L03.213 Periorbital cellulitis (principal); B02.30 Zoster ocular disease, unspecified; F17.210 Nicotine dependence, cigarettes, uncomplicated; E66.9 Obesity, unspecified; K21.9 Gastro-esophageal reflux disease without esophagitis; F19.90 Other psychoactive substance use, unspecified, uncomplicated; S05.01XA Injury of conjunctiva and corneal abrasion without foreign body, right eye, initial encounter; X58.XXXA Exposure to other specified factors, initial encounter; F41.9 Anxiety disorder, unspecified; Z88.0 Allergy status to penicillin; Z68.31 Body mass index [BMI] 31.0-31.9, adult; Z59.0 Homelessness; Z80.3 Family history of malignant neoplasm of breast; Y93.89 Activity, other specified; Y92.89 Other specified places as the place of occurrence of the external cause; Y99.8 Other external cause status; Z53.21 Procedure and treatment not carried out due to patient leaving prior to being seen by health care provider
CPT/HCPCS: 36415; 70450; 70480; 70553; 80048; 80053; 80202; 80307; 85025; 86592; 86666; 86695; 86703; 86705; 86709; 86757; 86787; 86803; 87040; 87340; 87491; 87591; 87641; 96365; 96375; 99291; 99406; A9575; J0133; J1650; J2185; J2930; J3370; J3490; J7040; J7050; Q0163; J7030